=== PATIENT | female | born 1955 | race Caucasian/White ===

== ENCOUNTER → 2020-06-26 12:44 | Outpatient (CLI) | payer MEDICARE, BC, SELFPAY ==
--- NOTE | ~2020-06-26 | XR_ITS ---
EXAMINATION: XR hip LT min 2V DATE: 06/26/2020 13:15 INDICATION: Left hip pain. TECHNIQUE: 2 views of left hip were obtained. COMPARISON: Left hip radiographs 03/02/2016 FINDINGS: Bone alignment is normal. No fracture. There is mild left hip osteoarthritis. A chronic almaz cified mass in the pelvis is likely a uterine fibroid. IMPRESSION: 1. Mild left hip osteoarthritis. Reviewed, dictated and finalized at location A. [facility] [employer]
== END ==
PROVIDERS: Visit Provider Nurse Practitioner Adult Health
DX: R10.2 Pelvic and perineal pain (principal); M16.12 Unilateral primary osteoarthritis, left hip
CPT/HCPCS: 73502

== ENCOUNTER → 2020-07-09 11:13 | Outpatient (CLI) | payer MEDICARE, BC, SELFPAY ==
--- NOTE | ~2020-07-09 | US_ITS ---
EXAMINATION: US pelvic complete w TV EXAM DATE: 07/09/2020 11:51 INDICATION: Uterine leiomyoma . TECHNIQUE: Pelvic transabdominal and transvaginal sonogram was performed. There are multiple graysca le and Doppler images available for interpretation. Comparison is made to prior examination from 03/15. FINDINGS: Uterus measures 5.3 x 3.8 cm, is retroverted and morphologically normal. With focal region probably fibroid measuring 2.8 cm. Endometrial stripe measures 4 mm, within normal limits, including trace fluid. There is no free pelvic fluid. Right adnexa: The ovary is not identified. There is no adnexal mass. Left adnexa: The ovary is not identified. There is no adnexal mass. IMPRESSION: 1. Fibroid uterus. Reviewed, dictated and finalized at location B. ATIONAL DIRECTOR IMPRESSION: 1. Fibroid uterus.
== END ==
PROVIDERS: PCP Nurse Practitioner Adult Health; Visit Provider Nurse Practitioner Adult Health
DX: D25.9 Leiomyoma of uterus, unspecified (principal)
CPT/HCPCS: 76830; 76856

== ENCOUNTER 2022-11-03 09:44 | Outpatient (CLI) | payer MEDICARE, BC, SELFPAY ==
--- NOTE | ~2022-11-03 | MM_ITS ---
EXAMINATION: MM screening [facility] BI w meño HISTORY: Screening mammogram TECHNIQUE: Craniocaudal and mediolateral oblique 3-D tomosynthesis images were obtained and synthetic 2-D images were generated. CAD analysis was submitted and interpreted. COMPARISON: No prior mammogram is available for comparison at this institution. BREAST PARENCHYMAL COMPOSITION: The breasts are almost entirely fatty. FINDINGS: There is no evidence of suspicious mass, calcification, or architectural distortion to sugg est malignancy in either breast. IMPRESSION: 1. No mammographic evidence of malignancy. 2. Recommend routine screening mammography in one year. BI-RADS Category 1: Negative Reviewed, dictated and finalized at location A.
--- NOTE | ~2022-11-03 | DEXA_ITS ---
Bone Density Report Name: GENTRY MCCAIN Age: 66 Sex: Female Ethnicity: White Date of : 1955 Indication: postmenopausal; screening for osteoporosis; prior fracture; Referring Provider: SCOOTER, CYNTHIA Malave Study: Bone densitometry was performed. Exam Date: November 03, 2022 Accession number: [id number] Bone Density: Region BMD T-score Z-score Classification AP Spine(L1-L4) 1.143 0.9 2.9 Normal Femoral Neck (Left) 0.800 -0.4 1.3 Normal Total Hip (Left) 1.126 1.5 2.9 Normal Femoral Neck (Right) 0.689 -1.4 0.3 Osteopenia Total Hip (Right) 1.032 0.7 2.2 Normal Total Hip Mean 1.079 1.1 2.6 Normal World Health Organization criteria for BMD impression classify patients as: Normal (T-score at or above -1.0), Osteopenia (T-score between -1.0 and -2.5), or Osteoporosis (T-score at or below -2.5). 10-year Fracture Risk(1): Major Osteoporotic Fracture 13% Hip Fracture 1.4% Reported Risk Factors: [place] (), Neck BMD=0.689, BMI=44.5, previous fracture Input outside FRAX(R) limits. Adjusted to:Qinnwl=071 kg (1) FRAX(R) Version 3.08. Fracture probability calculated for an untreated patient. Fracture probability may be lower if the patient has received treatment. Clinical Information Provided by Patient: Has had a low trauma fracture Has used the following medications: Vitamin D Patient maximum height was 66 Menopause Age: 48 No regular weight bearing exercise Does not regularly consume dairy products Onset of menses at age 9 Number of children 0 Impression: The patient has low bone mass, based on the Right Femoral Neck T-score. The patient has an estimated ten-year risk of hip fracture of 1.4% and an estimated ten-year risk of major fracture of 13%, based on the WHO FRAX algorithm. The patient has risk factors, including: previous fracture. Discussion: BONE DENSITY IS LOW AT ONE OR MORE SKELETAL SITES. This patient's lowest T-score is low at one or more skeletal sites. It meets the World Health Organization's (WHO) criteria for ?low bone mass? (T-score between -1.0 and -2.5). The patient's 10-year risk of fracture as calculated by FRAX is less than the threshold where pharmacological therapy is recommended by the National Osteoporosis Foundation (NOF). However, all treatment decisions require clinical judgment and consideration of individual patient factors, including patient preferences, comorbidities, previous drug use, risk factors not captured in the FRAX model (e.g., frailty, falls, vitamin D deficiency, increased bone turnover, interval significant decline in bone density) and possible under or overestimation of fracture risk by FRAX. The patient should follow a healthful lifestyle (good nutrition with adequate calcium and vitamin D, and appropriate weight-bearing ex
== END 2022-11-03 09:45 | disposition home or self-care (01) ==
LOC: ANHIMG 09:48
PROVIDERS: PCP Nurse Practitioner Family; Visit Provider Nurse Practitioner Family
DX: Z12.31 Encounter for screening mammogram for malignant neoplasm of breast (principal); Z78.0 Asymptomatic menopausal state; M85.851 Other specified disorders of bone density and structure, right thigh
CPT/HCPCS: 77063; 77067; 77080

== ENCOUNTER 2023-09-07 11:21 | Outpatient (CLI) | payer MEDICARE, BC, SELFPAY ==
--- NOTE | ~2023-09-07 | XR_ITS ---
Right Shoulder Technique: AP and scapular Y views were obtained. Clinical History: Pain Findings: No fracture or dislocation is seen. Osseous alignment is anatomic. There is moderate to adv anced degenerative change of the glenohumeral joint. There is mild AC joint degenerative change.. Sof t tissues are unremarkable. Impression: Moderate to advanced glenohumeral joint degenerative change. Mild AC joint degenerative change. Reviewed, dictated and finalized at location M. Impression: Moderate to advanced glenohumeral joint degenerative change. Mild AC joint degenerative change.
== END 2023-09-07 11:22 | disposition home or self-care (01) ==
PROVIDERS: PCP Nurse Practitioner Adult Health; Visit Provider Nurse Practitioner Adult Health
DX: M19.011 Primary osteoarthritis, right shoulder (principal)
CPT/HCPCS: 73030

== ENCOUNTER 2023-10-26 08:30 | Outpatient (CLI) | payer MEDICARE, BC, SELFPAY ==
--- NOTE | ~2023-10-26 | XR_ITS ---
Right Knee Technique: AP, lateral, and sunrise views were obtained. Clinical History: Medial pain Findings: No fracture or dislocation is seen. Osseous alignment is anatomic. Minimal degenerative spu rring noted throughout the knee. Soft tissues are unremarkable. No joint effusion is seen. Impression: Minimal degenerative spurring. Reviewed, dictated and finalized at location . Impression: Minimal degenerative spurring.
== END 2023-10-26 08:31 | disposition home or self-care (01) ==
LOC: ANHBWCIMG 08:33
PROVIDERS: PCP Nurse Practitioner Adult Health; Visit Provider Nurse Practitioner Adult Health
DX: M25.561 Pain in right knee (principal); M77.8 Other enthesopathies, not elsewhere classified
CPT/HCPCS: 73562

== ENCOUNTER 2024-03-04 13:51 | Outpatient (CLI) | payer MEDICARE, BC, SELFPAY ==
--- NOTE | ~2024-03-04 | XR_ITS ---
XR hip RT min 2V Ordering provider: Mireya Cohn APRN History: . M25.551 - Pain in right hip - No injury . Comparison: March 02, 2016 FINDINGS: BONES: No acute fracture or dislocation. HIP JOINT SPACES: Normal. SOFT TISSUES: Normal. IMPRESSION: No definite acute osseous abnormality right hip. Reviewed, dictated and finalized at location A.
== END 2024-03-04 13:52 | disposition home or self-care (01) ==
LOC: ANHBWCLAB 13:53 → ANHBWCIMG 13:55
PROVIDERS: PCP Nurse Practitioner Adult Health; Visit Provider Nurse Practitioner Adult Health
DX: M25.551 Pain in right hip (principal)
CPT/HCPCS: 73502

== ENCOUNTER 2024-06-06 14:06 | Outpatient (CLI) | payer MEDICARE, BC, SELFPAY ==
--- NOTE | ~2024-06-06 | XR_ITS ---
HISTORY: fall 4 days ago, pain/swelling at 3rd and 4th IP joint COMPARISON: None TECHNIQUE: 3 views of the left hand were performed. FINDINGS: No acute fracture is identified. Degenerative disease is identified within the distal interphalangeal joint spaces of the second and f ifth digits and within the third and fourth digits to a lesser extent. The remaining visualized joint spaces are otherwise preserved. The carpal arcs are intact. Bone mineralization is age-appropriate. Trace soft tissue swelling surrounding the third and fourth proximal interphalangeal joint spaces. No radiopaque foreign body is identified. IMPRESSION: Degenerative disease, without acute fracture or dislocation within the left hand, as detailed above. Reviewed, dictated and finalized at location A. DE WIRER IMPRESSION: Degenerative disease, without acute fracture or dislocation within the left bush d, as detailed above.
--- OUTSIDE RECORDS SUMMARY | 2024-06-07 05:36 | XMS_ITS | Data Portability ---
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 Name Role Phone TERRENCE COHN Primary Care Provider Assessment Encounter Date Assessment Date Assessment LastModified by Organization Details LastModified Time 10/03/2023 10/03/2023 Assessment: Rhinitis Moderate OSAHS, AHI = 16 PLMD Plan: The following were reviewed and explained to the patient: primary care/referral note [facility] diagnostic sleep study 05/12/17 sleep onset = 37.5 minutes, REM onset = 306 minutes, AHI = 16, supine AHI = 27, REM AHI = 79, PLMI = 10 [facility] titration sleep study 07/06/17 sleep onset = 67.5 minutes, REM onset = 138 minutes, ResMed medium AirFit P10 nasal pillows @ 8 cmH2O, PLMI = 0.0 [facility] titration sleep study 12/22/17 sleep onset = 23.5 minutes, REM onset = 297 minutes, Respironics medium Nuance gel nasal pillows @ 10 cmH2O, PLMI = 0.0 [facility] titration sleep study 11/14/18 sleep onset = 31.5 minutes, REM onset = 224.5 minutes, Respironics medium Nuance gel nasal pillows @ 12 cmH2O, PLMI = 22 Elevation in periodic limb movement index may be contributed by escitalopram. Non-pharmacologic therapy options for periodic limb movement disorder include avoidance of aggravating drugs and substances, mental alerting activities, short daily hemodialysis for patients in renal failure, exercise, leg massage, stretching calf muscles, use of a weighted blanket and applied heat. Patient will cut down on caffeine intake. We will check BUN, Creatinine, Vitamin E, Vitamin B12, RBC folate, Iron, TIBC, Ferritin, ESR, Magnesium, Hgb and Hct levels. PAP compliance downloaded and interpreted x 20 minutes. Data reviewed and explained to the patient. Average apnea/hypopnea index (AHI) is 1.6. Patient used PAP > 4 hours 99% of the time. PAP is set at 12 cmH2O. PAP will remain at 12 cmH2O. Keep ramp off. Keep EPR @ +1. Keep humidifier level @ automatic mode. Keep tube temperature @ automatic mode. Oxygen supplementation: none Patient is benefiting from PAP therapy. Encouraged patient to maintain PAP use more than 70% of the time. Statement of PAP use and benefits will be sent to the home care store. Educated the patient on problems and solutions associated with positive airway pressure (PAP) use. Difficulty tolerating pressure, mask leaks, intolerance of interface, nasal congestion, claustrophobic response, dry mouth, and unintentional mask removal during sleep were covered. Patient experiences nasal congestion. Patient will use nasal saline spray before starting PAP, use heated PAP humidifier, clean/air dry humidifier reservoir daily, use nasal steroid spray, use ipratropium bromide nasal spray if rhinitis/rhinorrhe a is present or obtain an oronasal/oral interface. Dry mouth is a normal occurrence for people who just start out on PAP therapy because they are not used to air blowing in to the throat to hold open. Dry mouth is exacerbated for people who wear nasal PAP mask and whose jaw drops open during sleep. Not only does this create a much less efficient therapy because of leakage, it also causes dry mouth. There are a couple solutions to help prevent this type of problem. A simple solution would be to wear a chinstrap which essentially holds the jaw in place. A second solution would be a switch to a full face mask which covers both the nose and mouth. Although this is another easy solution, using a full face mask for some could seem claustrophobic or confining. There is no silver bullet solution as no single mask is right for everybody. Sometimes it takes a bit of experimentation to find a PAP mask which best meets the patient's needs as well as fits comfortably. Another tactic is to use a humidifier on your PAP machine. Most new PAP machines have integrated humidifiers. Humidification is gray when dealing with symptoms of dry mouth because the humidifier can supply both warm and room temperate air. Even a small amount of humidity in the airflow will help nasal passages to stay hydrated. If a person is using both a full face mask and a PAP machine with a heated humidifier and is still experiencing dry mouth, an ill-fitted PAP mask might be causing the problem. Leakage can be caused by a mask that is to large or small, the wrong style mask, the cushion is degraded or simply because the mask's straps aren't adjusted correctly. If leakage occurs, dry air from the room can leak in while humidification escapes. The result is reduced humidification within the circuit and resulting in dry throat and mouth. Finally, beyond factors involving the PAP machine and mask, dry mouth can also be caused or worsened by dehydration. The general recommendation to during eight 8 oz. glasses of water a day might be too little for many people. When people drink large amounts of coffee or other caffeine beverages, or sweat a lot during the day, making sure to rehydrate is an important part of PAP therapy. Provided the patient with a list of local home care stores where positive airway pressure (PAP) units, accoutrement, and services are available. Home care store selection is based on patient's insurance carrier. Patient will setup an appointment with [facility] for supplies and pressure adjustments. A major predictor of success with use of PAP is follow-up with both the respiratory supplier and the treating physician. The respiratory supplier optimally will follow-up within two weeks after starting use while the treating physician optimally will follow-up within 90 days after starting therapy to assess adherence and effectiveness of treatment. The download results can show the treating physician information about adherence to treatment, residual AHI while on treatment and presence of large mask leakage. This information is especially helpful if the patient has residual sleepiness despite treatment. General information on sleep disordered breathing, evaluation of sleep disordered breathing, treatment with PAP therapy, and living with PAP therapy were covered. We discussed with the patient the impact of weight on: Sleep disordered breathing Hypertension Hyperlipidemia [place] Lumbar stenosis We discussed with the patient the benefit of PAP therapy on: Sleep disordered breathing Anxiety Rhinitis Atrial fibrillation Mild TR PASP 28 mmHg Hypertension FR[place] Educated the patient on sleep hygiene measures. Relaxing rituals to rest easy, understanding foods with positive and negative impact on sleep, creating a peaceful sleep environment, timing of exercise, using herbal sleep aids, and practicing sleep-friendly meditation were covered. To determine how much sleep is needed, the patient will assess where she falls on the spectrum, examine what lifestyle factors such as work schedules and stress are affecting the quality and quantity of sleep. In general, adults need 7-9 hours of sleep. Educated the patient regarding foods that promote sleep. These include but are not limited to cherries, bananas, toast, oatmeal, and warm milk. Educated the patient regarding foods and drinks to avoid before bedtime. These include but are not limited to aged cheese, chocolate, spicy foods, tomato-based sauces, soy, ginseng tea and processed meat. Advocated influenza vaccination annually and pneumonia vaccination MURPHY. Advocated weight loss through diet and exercise. Patient's ideal body weight according to height and gender is up to 140 lbs. Encouraged patient to adjust caloric intake to maintain/achieve ideal body weight, emphasizing on fruits, vegetables, whole grains, and fat-free or low-fat products. These include lean meats, poultry, fish, beans, eggs, and nuts and foods that are low in saturated fats, trans-fats, cholesterol, salt (sodium), and glycemic index. Stressed the importance of regular exercise up to the patient's capacity limits. In this case, we recommend 20 min daily walking, 2 days a week of resistance training. Patient to monitor BP daily and bring records to PCP for further management. Follow-up: 3 weeks Not available 10/03/2023 12:11:16 10/24/2023 10/24/2023 Assessment: Rhinitis Moderate OSAHS, AHI = 16 PLMD Iron deficiency Vit E deficiency Plan: The following were reviewed and explained to the patient: [facility] diagnostic sleep study 05/12/17 sleep onset = 37.5 minutes, REM onset = 306 minutes, AHI = 16, supine AHI = 27, REM AHI = 79, PLMI = 10 [facility] titration sleep study 07/06/17 sleep onset = 67.5 minutes, REM onset = 138 minutes, ResMed medium AirFit P10 nasal pillows @ 8 cmH2O, PLMI = 0.0 [facility] titration sleep study 12/22/17 sleep onset = 23.5 minutes, REM onset = 297 minutes, Respironics medium Nuance gel nasal pillows @ 10 cmH2O, PLMI = 0.0 [facility] titration sleep study 11/14/18 sleep onset = 31.5 minutes, REM onset = 224.5 minutes, Respironics medium Nuance gel nasal pillows @ 12 cmH2O, PLMI = 22 ESR 10/03/23 26 mm/hr Ferritin 10/03/23 21 ng/mL Alpha tocopherol 10/03/23 8.5 mg/L Gamma tocopherol 10/03/23 1.3 mg/L Elevation in periodic limb movement index may be contributed by escitalopram. Non-pharmacologic therapy options for periodic limb movement disorder include avoidance of aggravating drugs and substances, mental alerting activities, short daily hemodialysis for patients in renal failure, exercise, leg massage, stretching calf muscles, use of a weighted blanket and applied heat. Patient will cut down on caffeine intake. BUN, Creatinine, Vitamin B12, RBC folate, Iron, TIBC, Magnesium, Hgb and Hct levels are within normal limits. Patient will take Vitamin E 200 IU/day to keep the alpha tocopherol > 7.0 mg/L and to keep the gamma tocopherol > 0.5 mg/L. Patient will take FeSO4 325 mg + Vit C 500 mg daily to keep the ferritin > 75 ng/ml. Check vitamin E and ferritin one week before return. We will hold off on dopaminergic therapy for now. PAP compliance downloaded and interpreted x 20 minutes. Data reviewed and explained to the patient. Average apnea/hypopnea index (AHI) is 1.4. Patient used PAP > 4 hours 94% of the time. PAP is set at 12 cmH2O. PAP will remain at 12 cmH2O. Keep ramp off. Keep EPR @ +1. Keep humidifier level @ automatic mode. Keep tube temperature @ automatic mode. Oxygen supplementation: none Patient is benefiting from PAP therapy. Encouraged patient to maintain PAP use more than 70% of the time. Statement of PAP use and benefits will be sent to the home care store. Educated the patient on problems and solutions associated with positive airway pressure (PAP) use. Difficulty tolerating pressure, mask leaks, intolerance of interface, nasal congestion, claustrophobic response, dry mouth, and unintentional mask removal during sleep were covered. Patient experiences nasal congestion. Patient will use nasal saline spray before starting PAP, use heated PAP humidifier, clean/air dry humidifier reservoir daily, use nasal steroid spray, use ipratropium bromide nasal spray if rhinitis/rhinorrhe a is present or obtain an oronasal/oral interface. Dry mouth is a normal occurrence for people who just start out on PAP therapy because they are not used to air blowing in to the throat to hold open. Dry mouth is exacerbated for people who wear nasal PAP mask and whose jaw drops open during sleep. Not only does this create a much less efficient therapy because of leakage, it also causes dry mouth. There are a couple solutions to help prevent this type of problem. A simple solution would be to wear a chinstrap which essentially holds the jaw in place. A second solution would be a switch to a full face mask which covers both the nose and mouth. Although this is another easy solution, using a full face mask for some could seem claustrophobic or confining. There is no silver bullet solution as no single mask is right for everybody. Sometimes it takes a bit of experimentation to find a PAP mask which best meets the patient's needs as well as fits comfortably. Another tactic is to use a humidifier on your PAP machine. Most new PAP machines have integrated humidifiers. Humidification is gray when dealing with symptoms of dry mouth because the humidifier can supply both warm and room temperate air. Even a small amount of humidity in the airflow will help nasal passages to stay hydrated. If a person is using both a full face mask and a PAP machine with a heated humidifier and is still experiencing dry mouth, an ill-fitted PAP mask might be causing the problem. Leakage can be caused by a mask that is to large or small, the wrong style mask, the cushion is degraded or simply because the mask's straps aren't adjusted correctly. If leakage occurs, dry air from the room can leak in while humidification escapes. The result is reduced humidification within the circuit and resulting in dry throat and mouth. Finally, beyond factors involving the PAP machine and mask, dry mouth can also be caused or worsened by dehydration. The general recommendation to during eight 8 oz. glasses of water a day might be too little for many people. When people drink large amounts of coffee or other caffeine beverages, or sweat a lot during the day, making sure to rehydrate is an important part of PAP therapy. Provided the patient with a list of local home care stores where positive airway pressure (PAP) units, accoutrement, and services are available. Home care store selection is based on patient's insurance carrier. Patient will setup an appointment with [facility] for supplies and pressure adjustments. A major predictor of success with use of PAP is follow-up with both the respiratory supplier and the treating physician. The download results can show the treating physician information about adherence to treatment, residual AHI while on treatment and presence of large mask leakage. This information is especially helpful if the patient has residual sleepiness despite treatment. General information on sleep disordered breathing, evaluation of sleep disordered breathing, treatment with PAP therapy, and living with PAP therapy were covered. We discussed with the patient the impact of weight on: Sleep disordered breathing Hypertension Hyperlipidemia [place] Lumbar stenosis We discussed with the patient the benefit of PAP therapy on: Sleep disordered breathing Anxiety Rhinitis Atrial fibrillation Mild TR PASP 28 mmHg Hypertension FR[place]CH[place]KA Educated the patient on sleep hygiene measures. Relaxing rituals to rest easy, understanding foods with positive and negative impact on sleep, creating a peaceful sleep environment, timing of exercise, using herbal sleep aids, and practicing sleep-friendly meditation were covered. To determine how much sleep is needed, the patient will assess where she falls on the spectrum, examine what lifestyle factors such as work schedules and stress are affecting the quality and quantity of sleep. In general, adults need 7-9 hours of sleep. Educated the patient regarding foods that promote sleep. These include but are not limited to cherries, bananas, toast, oatmeal, and warm milk. Educated the patient regarding foods and drinks to avoid before bedtime. These include but are not limited to aged cheese, chocolate, spicy foods, tomato-based sauces, soy, ginseng tea and processed meat. Advocated influenza vaccination annually and pneumonia vaccination MURPHY. Advocated weight loss through diet and exercise. Patient's ideal body weight according to height and gender is up to 140 lbs. Encouraged patient to adjust caloric intake to maintain/achieve ideal body weight, emphasizing on fruits, vegetables, whole grains, and fat-free or low-fat products. These include lean meats, poultry, fish, beans, eggs, and nuts and foods that are low in saturated fats, trans-fats, cholesterol, salt (sodium), and glycemic index. Stressed the importance of regular exercise up to the patient's capacity limits. In this case, we recommend 20 min daily walking, 2 days a week of resistance training. Patient to monitor BP daily and bring records to PCP for further management. Follow-up: 3 months, January 2024 Not available 10/24/2023 09:49:59 Plan of Treatment Reminders Order Date Submit Date Provider Last Modified By Organization Details Last Modified Time Details Appointments None recorded. Lab urinalysis, dipstick 2022 023 [facility], [address], [place], [address], 3 15:50:13 iron + TIBC + ferritin, serum [address] [facility], [address] [place], [address], 4 19:10:36 folate, RBC 2023 024 [email or web address] 25 [facility], [address] [place], [address], 4 09:28:02 vitamin B12, serum 2023 024 [email or web address] 25 [facility], [address] [place], [address], 4 09:28:03 ESR (erythrocyt e sedimentati on rate), blood 2023 024 [email or web address] 25 [facility], [address] [place], [address], 4 09:28:03 hemoglobin + hematocrit, blood 2023 024 [email or web address] 25 [facility], [address] [place], [address], 4 09:28:03 bun (blood urea nitrogen), serum or plasma 2023 024 [email or web address] 25 [facility], [address] [place], [address], 4 09:28:03 creatinine, serum or plasma 2023 024 [email or web address] 25 [facility], [address] [place], [address], 4 09:28:03 magnesium, serum or plasma 2023 024 [email or web address] 25 [facility], [address] [place], [address], 4 09:28:03 vitamin E, serum 2023 024 [facility] [address] [place], [address], 4 00:03:24 ferritin, serum or plasma 2023 024 [email or web address] 82 [facility], [address] [place], [address], 4 09:00:44 vitamin E, serum 2023 024 [email or web address] 82 [facility], [address] [place], [address], 4 09:00:44 Referral None recorded. Procedures None recorded. Surgeries None recorded. Imaging None recorded. Medication Orders doxycycline hyclate 100 mg capsule [address]/Pharmacy #[id number], [address] [facility] [place], [address], 4 15:28:23 ferrous sulfate 325 mg (65 mg iron) tablet [address] [facility]Pharmacy #[id number], [address] [facility] [place], [address], 4 09:44:02 Vitamin C 500 mg tablet [address] [facility]/Pharmacy #[id number], [address], [place], [address], 4 09:44:04 vitamin E (dl, acetate) 90 mg (200 unit) capsule [address] [facility]/Pharmacy #[id number], [address], [place], [address], 4 09:44:03 Patient TargetsNo targets recorded. Patient Instructions Encounter Date Encounter Id Patient Instructions Last Modified By Organization Details Last Modified Time 12/27/2022 [id number] FU in 6 mo for htn, lipid, allergies, lower back pain, gerd. [email or web address] Not available 12/27/2022 13:59:13 Reason for Referral None Reported. Results Created Date Observation Date Name Description Value Unit Range Abnormal Flag Note LastModifiedBy Organization Detail LastModifiedTime 12/28/1912/27/2022 urina lysis , dipst ick Leukocytes (reference range: negative christina/??l) Negati ve Not Available [address], [address], 12/27/2022 14:41:16 12/28/19 23 12/27/2022 urina lysis , dipst ick Nitrite (reference rage: negative mg/dl) negati ve Not Available [address], [address], 12/27/2022 14:41:16 12/28/19 23 12/27/2022 urina lysis , dipst ick Urobilinogen (reference range: 0.2-1 mg/dl) 0.2 Not Available [address], [address], 12/27/2022 14:41:16 12/28/19 23 12/27/2022 urina lysis , dipst ick Protein (reference range: negative mg/dl) Negati ve Not Available [address], [address], 12/27/2022 14:41:16 12/28/19 23 12/27/2022 urina lysis , dipst ick pH (reference range: 5-7) 6.5 Not Available [address], [address], 12/27/2022 14:41:16 12/28/19 23 12/27/2022 urina lysis , dipst ick Blood (reference range: negative Barney/??l) Negati ve Not Available [address], [address], 12/27/2022 14:41:16 12/28/19 23 12/27/2022 urina lysis , dipst ick Specific [place] (reference range: 1.005-1.030) 1.025 Not Available [address], [address], 12/27/2022 14:41:16 12/28/1912/27/2022 urina lysis , dipst ick Ketone (reference range: negative mg/dl) Negati ve Not Available [address], [address], 12/27/2022 14:41:16 12/28/1912/27/2022 urina lysis , dipst ick Bilirubin (reference range: negative mg/dl) Trace Not Available [address], [address], 12/27/2022 14:41:16 12/28/1912/27/2022 urina lysis , dipst ick Glucose (reference range: negative mg/dl) Negati ve Not Available [address], [address], 12/27/2022 14:41:16 12/28/19 23 12/27/2022 urina lysis , dipst ick Appearance Clear Not Available [address], [place], [address], 12/27/2022 14:41:16 12/28/19 23 12/27/2022 urina lysis , dipst ick Color Yellow Not Available [facility] [address] [facility], [place], [address], 12/27/2022 14:41:16 11/04/19 23 11/03/2022 MAMMO , scree clint, bilat eral No observ ation record ed. [address], [place], [address], 11/03/2022 15:41:58 11/05/19 23 11/03/2022 DEXA No observ ation record ed. [address], [place], [address], 11/04/2022 16:27:24 11/10/19 23 12/22/2017 polys omnog alex, titra tion study No observ ation record ed. BARCODE Not Available 2022 18:30:10 11/10/19 23 07/06/2017 polys omnog alex, titra tion study No observ ation record ed. BARCODE Not Available 2022 18:30:10 11/10/19 23 05/12/2017 polys omnog alex, diagn ostic , 6 yrs or older No observ ation record ed. Not Available 2023 15:40:36 03/08/20 23 03/08/2023 US, doppl er echoc ardio gram No observ ation record ed. [email or web address] [facility] [address], [place], [address], 03/09/2023 07:16:08 09/26/19 24 05/12/2017 polys omnog alex, diagn ostic , 6 yrs or older No observ ation record ed. BARCODE Not Available 2023 10:47:56 09/26/19 24 07/06/2017 polys omnog alex, titra tion study No observ ation record ed. [email or web address] Not Available 2023 11:15:48 09/26/19 24 11/14/2018 polys omnog alex, titra tion study No observ ation record ed. BARCODE Not Available 2023 10:47:58 09/26/19 24 12/22/2017 polys omnog alex, titra tion study No observ ation record ed. BARCODE Not Available 2023 10:47:58 Result Notes None recorded. Problems Name Problem SNOMED Code Status Onset Date Resolution Date Notes Provider Name and Address Organization Details Recorded Time Neoplasm of skin 771754666 Active Not Available [facility] 3 16:40:46 Herpes labialis 6985436 Active 2022 Not Available [facility] 3 16:40:46 Constipat ion 86490441 Completed Not Available [facility] 3 04:55:35 Acute sinusitis 56833829 Completed Not Available [facility] 3 04:55:35 Spinal stenosis of lumbar region 71895348 Active Not Available [facility] 3 16:40:46 Postopera tive pain 715837689 Completed Not Available [facility] 3 04:55:35 Soft tissue lesion of foot region 655681493 Completed Not Available [facility] 3 04:55:35 Dropped beats - heart 328389234 Completed Not Available [facility] 3 04:55:35 Urinary symptoms 162045975 Completed Not Available [facility] 3 04:55:35 Nodule on toe 443312774 Completed Not Available [facility] 3 04:55:36 Weight decreased 114728325 Completed Not Available [facility] 3 04:55:36 Edema 028873293 Completed Not Available [facility] 3 04:55:36 Vaginal discharge 848372974 Completed Not Available [facility] 3 04:55:36 Low back pain 224240748 Completed Not Available [facility] 3 04:55:36 Pain in left lower limb 616483967 Completed Not Available [facility] 3 04:55:36 Ganglion of foot 864092232 Completed Not Available [facility] 3 04:55:36 Numbness of toe 955573225 Completed Not Available [facility] 3 04:55:37 Non-aller gic rhinitis [id number] 1 Completed Not Available [facility] 3 04:55:37 Laceratio n - injury 264515412 Completed Not Available [facility] 3 04:55:37 Vitamin D deficienc y 12293071 Active 2022 Not Available [facility] 3 16:40:46 Seasonal allergic rhinitis 812822161 Active 2022 Not Available [facility] 3 16:40:46 Sinusitis 11832571 Completed Not Available [facility] 3 04:55:37 Hypertens nita disorder 32010590 Completed Not Available [facility] 3 04:55:37 Body mass index 40+ - severely obese 462100921 Active 2017 Not Available [facility] 3 16:40:46 Obesity 839491624 Active Not Available [facility] 3 16:40:46 Easy bruising 610327152 Completed Not Available [facility] 3 04:55:38 Numbness 39336713 Completed Not Available [facility] 3 04:55:38 Cardiac pacemaker in situ 956660815 Active 2018 Not Available [facility] 3 16:40:46 Seasonal allergy 241989217 Completed Not Available [facility] 3 04:55:38 Erythema of skin 234132951 Completed Not Available [facility] 3 04:55:39 Ganglion cyst 355658064 Active Not Available [facility] 3 16:40:46 Anxiety 75774087 Active 2022 Not Available [facility] 3 16:40:46 Upper respirato ry infection 55192327 Completed Navjot Myles MD [address] [place] [address], [place] [address], [place], [address] , [facility] [employer] [facility] 4 15:50:31 Hyperlipi demia 10530885 Active 2022 Not Available [facility] 3 16:40:46 Essential hypertens ion 12197172 Active Not Available [facility] 3 16:40:46 Allergic rhinitis 42064657 Completed Navjot Myles MD [address], [address], [place], [address] , [email or web address] [facility] [employer] [facility] 4 15:49:59 Acid reflux 916726339 Active Not Available [facility] 3 16:40:46 Candidias is of vagina 21247240 Completed Not Available [facility] 3 04:55:41 Degenerat ion of intervert ebral disc 09168205 Active Not Available [facility] 3 16:40:46 Obstructi ve sleep apnea syndrome 55575171 Active 2017 Not Available [facility] 3 16:40:46 Contusion of lower limb 50756130 Completed Not Available [facility] 3 04:55:42 Uterine leiomyoma 50640675 Active 2020 Not Available [facility] 3 16:40:46 Skin nodule 48484157 Completed Not Available [facility] 3 04:55:43 Osteopeni a 412881980 Active 2022 Not Available [facility] 3 16:40:46 Periodic limb movement disorder 349921598 Active 2023 Navjot Myles MD [address], [address], [place], [address] , [email or web address] [facility] [employer] [facility] 4 12:05:56 Iron deficienc y 80305222 Active 2023 Navjot Myles MD [address], [address], [place], [address] , [email or web address] [facility] [employer] [facility] 4 09:42:49 Vitamin E deficienc y 74864637 Active 2023 Navjot Myles MD [address], [address], [place], [address] , [facility] 4 09:42:59 Notes:Medical History: Anxie ty Allergic conjunctivitis Allergic rhinitis with postnasal drip HSV-1 infection Bruxism Obesity with mod OSAHS, AHI = 16, 05/12/17, on CPAP c/o IVRC Atrial fibrillation Mild TR PASP 28 mmHg Hypertension EF 60% Hyperlipidemia FRANCHESKA Uterine leiomyoma PLMD Iron deficiency Vit E deficiency Vit D deficiency Osteopenia Lumbar stenosis Right shoulder OA Procedure History: Lap banding 2008 Nasal septoplasty 2009 Nasal polypectomy 2012 Cardiac catheterizations 2011, 2017 Cholecystectomy 2015 Left ankle fracture surgery 2015 Colonoscopy 2016 D&C 2017 Lap banding removal 2018 Pacemaker placement 2019 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 Procedures Surgical History Date Name Laterality Status Provider Name and Address Organization Details Recorded Time 3 Most Recent Bone Density completed Carine Mcleod NP [address] [place] [address] [address], [place], [address], [facility] 11/04/2022 13:52:55 6 Date of Last Colonoscopy completed Carine Santoyo RN [facility] 08/26/2022 11:17:52 Imaging Results Imaging Date Name Status LastModified by Organization Details LastModified Time 11/03/2022 MAMMO, screening, bilateral completed [address], [address], 11/03/2022 15:41:58 11/03/2022 DEXA completed [address], [address], 11/04/2022 16:27:24 12/22/2017 polysomnogram, titration study completed [facility] Information not available 11/09/2022 18:30:10 07/06/2017 polysomnogram, titration study completed [facility] Information not available 11/09/2022 18:30:10 05/12/2017 polysomnogram, diagnostic, 6 yrs or older completed Information not available 09/24/2023 15:40:36 03/08/2023 US, doppler echocardiogram completed [email or web address] [facility] [address], [place], [address], 03/09/2023 07:16:08 05/12/2017 polysomnogram, diagnostic, 6 yrs or older completed [facility] Information not available 09/26/2023 10:47:56 07/06/2017 polysomnogram, titration study completed [email or web address] Information not available 11/07/2023 11:15:48 11/14/2018 polysomnogram, titration study completed [facility] Information not available 09/26/2023 10:47:58 12/22/2017 polysomnogram, titration study completed [facility] Information not available 09/26/2023 10:47:58 Procedure Notes None recorded. Medical Equipment None Reported. Allergies Allergen ID Allergen Name Allergen Category Reaction Reaction Severity Criticality Documentation Date Start Date Code Code System Note Provider Name and Address Organization Details Recorded Time 66148 rosuvasta tin medicatio n hives Not available Not available 10/03/2023 76683 2 RxNorm QUENTIN Baeza [place] [facility] [place] [employer] 4 11:02:48 9133 acetamino phen / hydrocodo ne medicatio n hives severe Not available 07/13/2022 42726 2 RxNorm Not Available [facility] 3 05:07:51 9136 Substance with sulfonami de structure and antibacte rial mechanism of action (substanc e) medicatio n hives Not available Not available 07/13/2022 32908 8003 SNOMED Not Available [facility] 3 05:07:51 9137 prednison e medicatio n chest pain moderate Not available 07/13/20222016 8640 RxNorm Not Available [facility] 3 05:07:51 9139 Product containin g penicilli n and antibioti c (product) medicatio n Not available Not available Not available 07/13/2022 35272 05 SNOMED Not Available [facility] 3 05:07:51 9143 nitrofura ntoin medicatio n other Not available Not available 07/13/2022 7454 RxNorm chest tighn ess and press ure, stoma ch felt bad, heada olvin Not Available [facility] 3 05:07:51 9146 Levaquin medicatio n hives Not available Not available 07/13/2022 99208 2 RxNorm Not Available [facility] 3 05:07:51 9147 iodine medicatio n Not available Not available Not available 07/13/2022 5933 RxNorm Not Available [facility] 3 05:07:51 9150 Iodinated contrast media (substanc e) medicatio n hives Not available Not available 07/13/2022 52004 2004 SNOMED Not Available [facility] 3 05:07:51 9153 cyclobenz aprine hydrochlo ride medicatio n hives Not available Not available 07/13/2022 67281 RxNorm Not Available [facility] 3 05:07:51 9155 Eliquis medicatio n rash Not available Not available 07/13/2022 74335 36 RxNorm Not Available [facility] 3 05:07:51 9156 diclofena c Not available rash Not available Not available 07/13/2022 3355 RxNorm facia l rash Not Available [facility] 3 05:07:52 9158 Betadine medicatio n Not available Not available Not available 07/13/2022 32061 0 RxNorm Not Available [facility] 3 05:07:52 9160 Avelox medicatio n arthralgi a (joint pain) Not available Not available 07/13/2022 27442 6 RxNorm Not Available [facility] 3 05:07:52 9161 amoxicill in medicatio n hives Not available Not available 07/13/2022 723 RxNorm Not Available [facility] 3 05:07:52 9163 lisinopri l medicatio n Not available Not available Not available 07/13/2022 57786 RxNorm Not Available [facility] 3 05:07:52 9165 azithromy yaquelin medicatio n hives Not available Not available 07/13/2022 48984 RxNorm I SPOKE WITH THE PT , ON NUMER OUS OCCAS IONS SHE HAS BEEN GIVEN Z-PAC WITHO UT ANY ADVER SE REACT ION. SHE OK'D THIS MEDIC ATION TO BE TAKEN OFF HER ALLER GY LIST. Not Available [facility] 3 05:07:52 Medications Name Sig Start Date Stop Date Status Note LastModified by Organization Details LastModified Time methocarb dixie 500 mg tablet active Not Available Not Available No t Available atorvasta tin 80 mg tablet 09/08 completed Not Available Not Available Not Available azelastin e 0.05 % eye drops INSTILL 1 DROP INTO AFFECTED EYE(S) BY OPHTHALM IC ROUTE 2 TIMES PER DAY 11/20 completed Not Available Not Available Not Available prednison e 10 mg tablet 03/04 completed Not Available Not Available Not Available doxycycli ne hyclate 100 mg capsule TAKE 1 CAPSULE BY MOUTH TWICE A DAY FOR 7 DAYS 09/23 completed Not Available Not Available Not Available clindamyc in HCl 300 mg capsule 05/16 completed Not Available Not Available Not Available biotin 800 mcg tablet Take 1 microgra m every day by oral route as directed . 2016 active Not Available Not Available Not Avai lable Vitamin C 500 mg tablet Take 1 tablet every day by oral route. 2023 active Not Available Not Available Not Avai lable cetirizin e 10 mg tablet Take 1 tablet every day by oral route. 03/04 completed Not Available Not Available Not Available azithromy yaquelin 250 mg tablet TAKE 2 TABLETS (500 MG) BY ORAL ROUTE ONCE DAILY FOR 1 DAY THEN 1 TABLET (250 MG) BY ORAL ROUTE ONCE DAILY FOR 4 DAYS active Not Available Not Available No t Available fluconazo le 150 mg tablet TAKE 1 TABLET BY MOUTH EVERY DAY 10/02 completed Not Available Not Available Not Available valacyclo vir 1 gram tablet TAKE 1 TABLET BY MOUTH EVERY 12 HOURS NEEDED FOR 2 DAYS 08/26 completed Not Available Not Available Not Available fluconazo le 200 mg tablet Take 1 tablet every day by oral route for 3 days. active Not Available Not Available No t Available metronida zole 0.75 % (37.5 mg/5 gram) vaginal gel 11/20 completed Not Available Not Available Not Available lisinopri l 20 mg tablet TAKE 1 TABLET BY MOUTH EVERY DAY active Not Available Not Available No t Available prednison e 20 mg tablet for 5 days 11/20 completed Not Available Not Available Not Available Pyridium 200 mg tablet 06/22 completed Not Available Not Available Not Available atenolol 25 mg tablet Take every day by oral route as directed . 11/20 completed Not Available Not Available Not Available promethaz ine 6.25 mg-codein e 10 mg/5 mL syrup 02/26 completed Not Available Not Available Not Available amlodipin e 5 mg tablet Take 1 tablet(s ) every day by oral route. 03/21 completed Not Available Not Available Not Available acyclovir 400 mg tablet Take 1 tablet every 8 hours by oral route for 7 days. 03/06 completed Not Available Not Available Not Available omeprazol e 40 mg capsule,d elayed release Take 1 capsule every day by oral route. active Not Available Not Available No t Available tramadol 50 mg tablet Take 1 tablet every 6 hours by oral route for 10 days. 04/04 completed Not Available Not Available Not Available acetamino phen 500 mg tablet Take 2 tablets every 4 hours by oral route as needed. 04/16 completed Not Available Not Available Not Available triamcino lone acetonide 0.1 % topical cream APPLY A THIN LAYER TO THE AFFECTED AREA(S) BY TOPICAL ROUTE 2 TIMES PER DAY active Not Available Not Available No t Available biotin 300 mcg tablet Take 2 tablets every day by oral route. 04/19 completed 800mcg Not Available Not Available Not Available oxycodone -acetamin ophen 5 mg-325 mg tablet 12/31 completed Not Available Not Available Not Available famotidin e 20 mg tablet Take 1 tablet every 12 hours by oral route as directed for 5 days. 03/27 completed Not Available Not Available Not Available magnesium oxide 400 mg (241.3 mg magnesium ) tablet Take 1 tablet twice a day by oral route as directed for 30 days. 04/04 completed cardiolo gist put her on this med - has Not Available Not Available Not Available lorazepam 0.5 mg tablet active Not Available Not Available Not Available amlodipin e 10 mg tablet TAKE ONE TABLET DAILY 02/11 completed Not Available Not Available Not Available benzonata te 100 mg capsule 11/20 completed Not Available Not Available Not Available doxycycli ne monohydra te 100 mg capsule 12/31 completed Not Available Not Available Not Available acyclovir 5 % topical ointment APPLY TO THE AFFECTED AREA(S) BY TOPICAL ROUTE EVERY 3 HOURS 6 TIMES PER DAY 03/19 completed Not Available Not Available Not Available ferrous sulfate 325 mg (65 mg iron) tablet Take 1 tablet every day by oral route. 2023 active Not Available Not Available Not Avai lable tobramyci n 0.3 % eye drops 11/24 completed PRN Not Available Not Available Not Available ranitidin e 150 mg tablet TAKE 1 TABLET BY MOUTH DAILY. 09/27 completed Not Available Not Available Not Available diphenhyd ramine 25 mg tablet Take 1 tablet as needed by oral route as directed . 03/27 completed Not Available Not Available Not Available lisinopri l 10 mg tablet Take 1 tablet every day by oral route. active Not Available Not Available No t Available triamcino lone acetonide 55 mcg nasal spray aerosol [place] 2 sprays every day by nasal route at bedtime for 30 days. active NEEDED Not Available Not Available Not Available polymyxin B sulfate 10,000 unit-trim ethoprim 1 mg/mL eye drops active Not Available Not Available No t Available flecainid e 50 mg tablet 03/19 completed Not Available Not Available Not Available flecainid e 100 mg tablet 03/19 completed Not Available Not Available Not Available hydrochlo rothiazid e 12.5 mg capsule 02/26 completed Not Available Not Available Not Available misoprost ol 100 mcg tablet Take 1 tablet 4 times a day by oral route for 15 days. active prn Not Available Not Available No t Available lisinopri l 30 mg tablet Take 1 tablet every day by oral route for 90 days. active Not Available Not Available No t Available omeprazol e 20 mg capsule,d elayed release TAKE 1 CAPSULE BY MOUTH EVERY DAY active Not Available Not Available No t Available montel[address] st 10 mg tablet TAKE 1 TABLET BY MOUTH DAILY active Not Available Not Available No t Available pravastat in 20 mg tablet TAKE ONE TABLET DAILY 04/19 completed Not Available Not Available Not Available hydrochlo rothiazid e 25 mg tablet TAKE 1 TABLET IN THE MORNING 04/04 completed Not Available Not Available Not Available mupirocin 2 % topical ointment Apply by topical route for 10 days. active apply to L arm twice a day for 10 days Not Available Not Available Not Available furosemid e 20 mg tablet TAKE 1 TABLET BY MOUTH DAILY active Not Available Not Available No t Available methylpre dnisolone 4 mg tablets in a dose pack TAKE 6 TABLETS ON DAY 1 DIRECTED ON PACKAGE AND DECREASE BY 1 TAB EACH DAY FOR A TOTAL OF 6 DAYS 12/27 completed Not Available Not Available Not Available albuterol sulfate HFA 90 mcg/actua tion aerosol inhaler 01/13 completed Not Available Not Available Not Available ketoconaz ole 2 % topical cream APPLY TO FACE TWICE DAILY NEEDED 11/20 completed Not Available Not Available Not Available lisinopri l 40 mg tablet TAKE ONE TABLET DAILY 11/20 completed Not Available Not Available Not Available ondansetr on 4 mg disintegr ating tablet Take 1 tablet every 6 hours by oral route as needed for 5 days. 04/19 completed Not Available Not Available Not Available cefdinir 300 mg capsule TAKE 1 CAPSULE BY MOUTH TWICE A DAY 07/20 completed Not Available Not Available Not Available naproxen sodium 275 mg tablet active Not Available Not Available Not Available fluticaso ne propionat e 50 mcg/actua tion nasal spray,[place] 1 -2 PUFFS IN EACH NOSTRIL DAILY active Not Available Not Available No t Available doxycycli ne hyclate 100 mg tablet Take 1 tablet twice a day by oral route for 10 days. active Not Available Not Available No t Available atenolol 50 mg tablet 1/2 tablet bid active Not Available Not Available No t Available escitalop alex 10 mg tablet TAKE 1 TABLET BY MOUTH DAILY active Not Available Not Available No t Available ezetimibe 10 mg tablet TAKE 1 TABLET BY MOUTH EVERY DAY active Not Available Not Available No t Available Vitamin D3 25 mcg (1,000 unit) tablet Take every day by oral route. 04/19 completed raised to 2000 mg Not Available Not Available Not Available rosuvasta tin 10 mg tablet TAKE 1 TABLET BY MOUTH EVERY DAY active Not Available Not Available No t Available escitalop alex 5 mg tablet TAKE ONE TABLET DAILY 02/20 completed Not Available Not Available Not Available nitrofura ntoin monohydra te/macroc rystals 100 mg capsule Take 1 capsule every 12 hours by oral route for 7 days. active Not Available Not Available No t Available omeprazol e 40mg daily 07/04 completed Not Available Not Available Not Available Vitamin D 01/13 completed Not Available Not Available Not Available atenolol Take 12.5mg daily 04/09 completed Not Available Not Available Not Available nebivolol 5 mg tablet TAKE 1 TABLET BY MOUTH EVERY DAY active Not Available Not Available No t Available Vitamin D3 50 mcg (2,000 unit) tablet Take 1 tablet every day by oral route as directed . 01/13 completed Not Available Not Available Not Available aspirin 81 mg effervesc ent tablet Take 1 tablet every day by oral route. 09/23 completed Not Available Not Available Not Available B12 09/23 completed Not Available Not Available Not Available Probiotic 1 po qd 09/23 completed Not Available Not Available Not Available Roselia Allergy 10mg 1 po qd 2013 active Not Available Not Available Not Avai lable vitamin E (dl, acetate) 90 mg (200 unit) capsule Take 1 capsule every day by oral route. 2023 active Not Available Not Available Not Avai lable Eliquis 5 mg tablet 11/27 completed Not Available Not Available Not Available Fluvirin 8894-8929 45 mcg (15 mcg x 3)/0.5 mL intramusc ular suspensio n 03/21 completed Not Available Not Available Not Available Fluzone High-Dose 2018- (PF) 180 mcg/0.5 mL intramusc ular syringe 11/20 completed Not Available Not Available Not Available Vitals Date Recorded Body height Body mass index (BMI) Body weight Heart rate Oxygen saturation Oxygen saturation in Arterial blood by Pulse oximetry Systolic blood pressure Diastolic blood pressure Provider Name and Address Organization Details Last Updated DateTime 3 167.64 cm 57.1 kg/m2 929700. 7 g 71 /min 98 % 98 % 120 mm[Hg] 64 mm[Hg] Liza MCKENZIE - [facility] [employer] 3 12:23:39 Date Recorded Body height Body mass index (BMI) Body weight Body temperature Heart rate Respiratory rate Oxygen saturation Oxygen saturation in Arterial blood by Pulse oximetry Systolic blood pressure Diastolic blood pressure Provider Name and Address Organization Details Last Updated DateTime 3 167.64 cm 58.3 kg/m2 335935. 85 g 97.1 [degF] 109 /min 24 /min 99 % 99 % 160 mm[Hg] 100 mm[Hg] Carine Santoyo RN [facility] [employer] [facility] 3 14:27:45 Date Recorded Body height Body mass index (BMI) Body weight Body temperature Heart rate Oxygen saturation Oxygen saturation in Arterial blood by Pulse oximetry Systolic blood pressure Diastolic blood pressure Provider Name and Address Organization Details Last Updated DateTime 3 167.64 cm 49.1 kg/m2 434136. 08 g 97.2 [degF] 71 /min 99 % 99 % 122 mm[Hg] 80 mm[Hg] Liza Montero [facility] [employer] 3 12:19:47 Date Recorded Body height Body mass index (BMI) Body weight Body temperature Heart rate Oxygen saturation Oxygen saturation in Arterial blood by Pulse oximetry Systolic blood pressure Diastolic blood pressure Provider Name and Address Organization Details Last Updated DateTime 4 167.64 cm 57.8 kg/m2 384814. 07 g 98.2 [degF] 75 /min 97 % 97 % 122 mm[Hg] 82 mm[Hg] Efra Gill CMA [facility] [employer] [facility] 4 11:00:38 Date Recorded Heart rate Respiratory rate Provider N lance and Address Organization Details Last Updated DateTime 10/03/2023 75 /min 15 /min Navjot Myles MD [address] [place] [address], [address], [facility] [employer] [facility] 10/03/2023 12:17:14 Date Recorded Body height Body mass index (BMI) Body weight Body temperature Heart rate Oxygen saturation Oxygen saturation in Arterial blood by Pulse oximetry Systolic blood pressure Diastolic blood pressure Provider Name and Address Organization Details Last Updated DateTime 4 167.64 cm 57.6 kg/m2 053355. 48 g 97.6 [degF] 74 /min 98 % 98 % 120 mm[Hg] 72 mm[Hg] Efra Gill CMA [facility] [employer] [facility] 4 09:18:55 Date Recorded Heart rate Respiratory rate Provider Heidi lucas and Address Organization Details Last Updated DateTime 10/24/2023 74 /min 15 /min Navjot Myles MD [address], [facility] [address], [place], [address], [place] [facility] [place] [employer] [facility] 10/24/2023 09:44:23 Social History Question Answer Notes LastModified by Organization Details LastModified Time Tobacco Smoking Status Former Smoker Not Available [employer] 07/13/2022 04:43:20 Do You Have An Advance Directive? No [id number] Information not available 07/13/2022 What Is Your Level Of Alcohol Consumption? None [id number] Information not available 07/13/2022 Do You Wear A Helmet When Biking? No Pt Doesn't Bike [id number] Information not available 07/13/2022 Are You Blind Or Do You Have Difficulty Seeing? No Patient Has Cataracts In Both Eyes And Pt Wears Eyeglasses [id number] Information not available 07/13/2022 Is Blood Transfusion Acceptable In An Emergency? Yes [email or web address] Information not available 08/26/2022 What Is Your Level Of Caffeine Consumption? Occasional [id number] Information not available 07/13/2022 In The 14 Days Before Symptom Onset, Have You Had Close Contact With A Laboratory-conf irmed COVID-19 While That Case Was Ill? No [id number] Information not available 07/13/2022 In The 14 Days Before Symptom Onset, Have You Had Close Contact With A Person Who Is Under Investigation For COVID-19 While That Person Was Ill? No [id number] Information not available 07/13/2022 Are You Deaf Or Do You Have Serious Difficulty Hearing? No [id number] Information not available 07/13/2022 What Type Of Diet Are You Following? REGULAR [id number] Information not available 07/13/2022 Which Illicit Or Recreational Drugs Have You Used? None [email or web address].[id number] Information not available 07/13/2022 What Is The Highest Grade Or Level Of School You Have Completed Or The Highest Degree You Have Received? [id number] [id number] Information not available 07/13/2022 Have There Been Any Changes To Your Family Or Social Situation? No [id number] Information not available 07/13/2022 When Did You Quit Smoking? 16+yearssincelastc igarette 40 Years Ago [id number] Information not available 07/13/2022 Are There Any Guns Present In Your Home? No [id number].[id number] Information not available 07/13/2022 Do You Use Insect Repellent Routinely? No [id number] [id number] Information not available 07/13/2022 Where Do You Live? SingleLevelHouse MIGRATION.[id number] [id number] Information not available 07/13/2022 Do You Have A Medical Power Of Community Organization Aide? No MIGRATION.0301 [id number] Information not available 07/13/2022 Do You Have Any Pets? No Budget Specialist Sometimes MIGRATION.0301 [id number] Information not available 07/13/2022 What Is Your Relationship Status? Single MIGRATION.0301 [id number] Information not available 07/13/2022 Do You Use Your Seat Belt Or Car Seat Routinely? Yes MIGRATION.0301 [id number] Information not available 07/13/2022 Do You Have Smoke And Carbon Monoxide Detectors In Your Home? Yes MIGRATION.0301 [id number] Information not available 07/13/2022 At What Age Did You Start Smoking Tobacco? 28 MIGRATION.0301 [id number] Information not available 07/13/2022 Are You Passively Exposed To Smoke? No MIGRATION.0301 [id number] Information not available 07/13/2022 Are There Any Smokers In Your House? No MIGRATION.0301 [id number] Information not available 07/13/2022 Do You Participate In Social Media? Yes MIGRATION.0301 [id number] Information not available 07/13/2022 Do You Feel Stressed (tense, Restless, Nervous, Or Anxious, Or Unable To Sleep At Night)? [id number] MIGRATION.0301 [id number] Information not available 07/13/2022 Do You Use Any Illicit Or Recreational Drugs? No MIGRATION.0301 [id number] Information not available 07/13/2022 Do You Use Sunscreen Routinely? No MIGRATION.0301 [id number] Information not available 07/13/2022 Has Tobacco Cessation Counseling Been Provided? No MIGRATION.0301 [id number] Information not available 07/13/2022 Have You Recently Traveled Abroad? No MIGRATION.0301 [id number] Information not available 07/13/2022 Are You Currently In School? No MIGRATION.0301 [id number] Information not available 07/13/2022 Do You Have Any Dietary Restrictions? No No Sugar, Fish Every Other Day MIGRATION.0301 [id number] Information not available 07/13/2022 Do You Or Have You Ever Used Any Other Forms Of Tobacco Or Nicotine? No MIGRATION.0301 [id number] Information not available 07/13/2022 Sex: Female Functional Status Question Answer Note LastModified by Organizat ion Details LastModified Time Do you have difficulty walking or climbing stairs? Yes degenerative disks in back make it difficult for her to walk and her weight also MIGRATION.65446 [id number] Information not available 07/13/2022 Do you have transportation difficulties? No MIGRATION.25419 [id number] Information not available 07/13/2022 Are you able to walk? YESWOREST MIGRATION.58211 [id number] Information not available 07/13/2022 Do you have difficulty doing errands alone? No MIGRATION.41960 48946 Information not available 07/13/2022 Are you able to care for yourself? Yes MIGRATION.44248 21544 Information not available 07/13/2022 Do you have difficulty dressing or bathing? No MIGRATION.60401 71271 Information not available 07/13/2022 What is your exercise level? None MIGRATION.73218 [id number] Information not available 07/13/2022 Mental Status Question Answer Note LastModified by Organizat ion Details LastModified Time Do you have difficulty concentrating, remembering or making decisions? No [id number] Information not available 07/13/2022 Family History Relationship Description Onset Age of this Age Resolved Age Notes LastModified by Organization Details LastModified Time Mother Myocardial infarction MIGRATION.275 [id number] Not available 07/13/2022 04:44:24 Mother Heart disease MIGRATION.096 [id number] Not available 07/13/2022 04:44:24 Mother Cerebrovascu lar accident MIGRATION.669 [id number] Not available 07/13/2022 04:44:24 Mother Alzheimer's disease MIGRATION.361 [id number] Not available 07/13/2022 04:44:24 Maternal Grandmother Diabetes mellitus MIGRATION.881 [id number] Not available 07/13/2022 04:44:24 Sister Heart disease Not available 2023 12:01:25 Sister Diabetes mellitus Not available 2023 12:01:31 Sister Malignant neoplasm of skin Not available 2023 12:01:50 Sister Immune defect Not available 2023 12:02:18 Medical History Condition Response ALLERGIES/HAYFEVER Y HIGH CHOLESTEROL / HYPERLIPIDEMIA Y OBESITY Y GERD/NAUSEA Y ARTHRITIS Y CATARACTS Y HEADACHES/MIGRAINES Y HYPERTENSION Y CARDIAC ARRHYTHMIA Y ANXIETY DISORDER Y Gynecological History Statement/Question Response If Post Menopausal, Age at Menopause 49 Date of Last Mammogram 11/03/2022 Date of Last Colonoscopy 05/11/2016 Most Recent Mammogram Most Recent Bone Density 11/03/2022 Obstetrics History GPAL:G 0 P 0 0 0 0 Immunizations Vaccine Type Date Status Note Provider Nam e and Address Organization Details Recorded Time Influenza, split virus, quadrivalent, preservative 9 completed Not Available [facility] 07/13/2022 05:07:40 COVID-19, mRNA, LNP-S, PF, 100 mcg/0.5mL dose or 50 mcg/0.25mL dose 1 completed Not Available [facility] 07/13/2022 05:07:40 COVID-19, mRNA, LNP-S, PF, 100 mcg/0.5mL dose or 50 mcg/0.25mL dose 1 completed Not Available [facility] 07/13/2022 05:07:40 COVID-19, mRNA, LNP-S, PF, 100 mcg/0.5mL dose or 50 mcg/0.25mL dose 1 completed Not Available [facility] 07/13/2022 05:07:40 Influenza, split virus, quadrivalent, preservative 0 completed Not Available [facility] 07/13/2022 05:07:40 Influenza, split virus, quadrivalent, preservative 9 completed Not Available [facility] 07/13/2022 05:07:40 Influenza, split virus, trivalent, preservative 6 completed Not Available [facility] 07/13/2022 05:07:41 Tdap 5 completed Not Available [facility] 07/13/2022 05:07:41 Tdap 2 completed Not Available [facility] 07/13/2022 05:07:41 Pneumococcal conjugate PCV 13 1 completed Not Available [facility] 07/13/2022 05:07:41 Influenza, split virus, quadrivalent, PF 8 completed Not Available [facility] 07/13/2022 05:07:41 Influenza, split virus, quadrivalent, preservative 5 completed Not Available [facility] 07/13/2022 05:07:41 Influenza, split virus, trivalent, preservative 4 completed Not Available [facility] 07/13/2022 05:07:41 Influenza, split virus, quadrivalent, PF 7 completed Not Available [facility] 07/13/2022 05:07:41 Influenza, split virus, trivalent, preservative 3 completed Not Available [facility] 07/13/2022 05:07:41 Past Encounters Encounter ID Performer Location Encounter Start Date Encounter Closed Date Diagnosis/Indication Diagnosis SNOMED-CT Code Diagnosis ICD10 Code Diagnosis Note [id number] [facility] [place] [address] [place] [address] 09/08/2020 00:00:00 09/08/2020 10:57:40 [id number] [facility] [place] [address] [place] [address] 02/01/2021 00:00:00 02/01/2021 20:54:29 [id number] [facility] [place] [address] [place] [address] 01/13/2022 00:00:00 01/13/2022 10:54:35 [id number] [facility] [place] [address] [place] [address] 04/05/2022 00:00:00 04/05/2022 14:41:[id number] [address] 06/22/2022 00:00:00 06/22/2022 08:51:05 [id number] Carine Mcleod NP [address] [address] 07/20/2022 14:48:56 07/20/2022 16:05:07 Upper respiratory infection 36525927 J06.9 1. Drink plenty of water.2. May use OTC cold medication for symptoms. Allergic conjunctivitis of bilateral eyes [id number] 00609 H10.13 Stop eye cream. Try on benadryl at night for 7-10 days. [id number] Carine Mcleod NP [address] [address] 08/26/2022 11:05:17 08/26/2022 12:09:14 Allergic rhinitis 87040043 J30.9 Medrol dose daniela. If not helpful, may need kenalog injection [id number] Corrine Eddy, [facility] Pulmonolo gy [place] [address] [place] [address] 11/08/2022 11:50:58 11/08/2022 14:58:11 Obstructive sleep apnea syndrome 77535889 G47.33 I can not access original study today, [facility] 07/2017Dow nload for 90 days with 99% use greater than 4 hours.She is on PAP [id number] AHI is 1.1She has god use and clinical benefit.OS A is well correctedE ncouraged 100% compliance with all sleepFollo w with PCM for labsAdvise d good sleep habits and patterns:- Set a goal for at least 7 to 8 hours of sleep time per day.-Use the bed mainly for sleep and to go to bed only when tired. If unable to fall asleep after 30 minutes, patient should get out of bed but should not engage in any activity that requires sustained mental alertness. -Maintain a regular bedtime and wake-up time even on weekends or days off of work.-Avoi d excessive naps during the daytime. If a nap is necessary, limit it to no more than 30minutes. -Minimize environmen tara noise, bright lights, and extremes in bedroom temperatur e.-Avoid alcohol, caffeinate d beverages, and nicotine products for at least 6 hours prior to bedtime.-A void strenuous exercise and large meals for at least 4 hours prior to bedtime.Or yesenia for new machine todayFollo w up for compliance within 90 days Fatigue 97307220 R53.83 May need adjustment in settings. Restless sleep 08785487 G47.9 May need adjustment in settings. [id number] Carine Mcleod NP [address] [address] 12/27/2022 14:11:36 12/27/2022 15:35:58 Obesity 378074541 E66.9 Diet and exercise discussed. Obstructiv e sleep apnea syndrome 63995973 G47.33 Corrine Eddy [facility]TENAN[employer] WEL[employer] [facility] 91618282 E78.5 ezetimibe 10 [address] po daily[address]Dr[address] Alvarado Essential hypertension 24967389 I10 ASA 81 mg po daily.Furo semide 20 mg po daily.Mignon nopril 20 mg po daily.Nebi volol 5 mg po dailyDrHeraclio Alvarado Lumbar radiculopathy 128 818376 M54.16 Pain management . Spinal eder nosis of lumbar region 37907274 M48.061 Pain management . Vitamin D deficiency 347 38686 E55.9 vit d supplement Seasonal a llergic rhinitis 196078116 J30.2 montelukas t 10 mg po daily. Acid reflux 797598064 K2 1.9 Omeprazole 20 mg po daily. Anxiety 84284169 F41.9 escitalopr am 10 mg po daily. Osteopenia 584598025 M85 .80 11/03/22 osteopenia .Taking a bone health supplement . Vaginal odor 902744515 N 89.8 Doxy [id number] Corrine Eddy, AUTOMOTIVE WARRANTY ADMINISTRATOR-BC [facility] [place] [facility] [place] [address] [place] [address] 03/06/2023 12:07:09 03/06/2023 12:50:05 Obstructive sleep apnea syndrome 09179290 G47.33 I can not access original study today, staff to requestNew machine 3Dow nload for 30 days with 93% use greater than 4 hours.She is on PAP [id number] AHI is 1.7She has good use and clinical benefit.OS A is well correctedE ncouraged 100% compliance with all sleepFollo w with PCM for labsAdvise d good sleep habits and patterns:- Set a goal for at least 7 to 8 hours of sleep time per day.-Use the bed mainly for sleep and to go to bed only when tired. If unable to fall asleep after 30 minutes, patient should get out of bed but should not engage in any activity that requires sustained mental alertness. -Maintain a regular bedtime and wake-up time even on weekends or days off of work.-Avoi d excessive naps during the daytime. If a nap is necessary, limit it to no more than 30minutes. -Minimize environmen tara noise, bright lights, and extremes in bedroom temperatur e.-Avoid alcohol, caffeinate d beverages, and nicotine products for at least 6 hours prior to bedtime.-A void strenuous exercise and large meals for at least 4 hours prior to bedtime.Sh e should follow up in 6 months Fatigue 63617007 R53.83 May need adjustment in settings. 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 D50.8 E83.42 [id number] Navjot Myles MD [facility] [address] 10/24/2023 09:04:57 10/25/2023 09:04:57 Obstructive sleep apnea syndrome 19598681 G47.33 Iron deficiency 91357300 E61.1 Vitamin E deficiency 541 26383 E56.0 Health Concerns Section Related Observation LastModified by Organization Detai ls LastModified Time None Recorded Concern Status LastModified by Organization Details LastModified Time None Recorded Advance Directives Directive N: Payers Encounter Date Sequence Insurance Name Policy Number Policy Rhodes Covered Member ID Rhodes Member ID Guarantor Name 11/08/2022 1 [place] Lydia Quickbert [id number] [place] Antonio Kaiser 11/08/2022 2 [place] 104 [place] Antonio Kaiser [id number] Lydia Antonio Kaiser 12/27/2022 1 [place] Malene R Kaiser [id number] Malene R Kaiser 12/27/2022 2 [place] 104 [place] Antonio Kaiser [id number] [place] Antonio Kaiser 03/06/2023 1 [place] Antonio Kaiser [id number] [place] Antonio Kaiser 03/06/2023 2 [place] 104 [place] Antonio Kaiser [id number] [place] Antonio Kaiser 10/03/2023 1 [place] Antonio Kaiser [id number] Malene R Kaiser 10/03/2023 2 [place] 104 [place] Antonio Kaiser [id number] [place] R Kaiser 10/24/2023 1 [place] Antonio Kaiser [id number] 6 Malene R Kaiser 10/24/2023 2 [place] 104 Lydia Antonio Kaiser [id number] Lydia Quickbert Notes Date Note Type Note Provider Name and Address Organization Details Recorded Time 3 text/html Ms Kaiser presents today to re-establish care for further evaluation of JOSE FRANCISCO and PAPHas had this machine for over 5 years and feels like it is not working as well for her anymoreShe is waking more requently at night.Tells me that her nasal pillows fit well, she does not wake due to mask leak or discomfort.She endorses increased fatigue during the day.Reviewed medical and surgical historyReviewed family and social historyReviewed PCM notes and imagingReviewed medications and allergies Corrine Nunu, AUTOMOTIVE WARRANTY ADMINISTRATOR- [address], [place], [address], [address] [facility] 11/08/2022 16:41:50 3 text/html Here for 6 mo fu. Has odor in vaginal area. Pain in left back. Urine is 'vivid yellow'. Having fever, chills, dizziness. Symptoms for couple months with odor, Has tried otc options for yeast infections.Takes shower every morning. Odor is back every evening. Itch COPD- Seeing corrine eddy. CPAP.HTN- nebivolol, lisinopril, furosemideSpinal stenosis lumbar- Seeing massage therapist. Has been to Pain management.Degeneration cervical disc-Seeing massage therapistObese- Started weight watchers.Acid reflux- Omeprazole working well. Diet mods.Herpes cold sore- abrevaAnxiety/depression- Lexapro 10 mg po daily. Stable.Lipid- on zetia.Seeing Jenny cardiology. Dr. 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 Ennis GI last colonoscopy 06/11/2015.Massage therapy and osteoarthritis Dr. 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 Christiano retired.Vision exam- cataracts bilaterally, 2022. Left is worse and progressing faster.Dental- every 6 mo. Carine Mcleod NP [address], [place], [address], [address] [facility] 12/27/2022 15:05:46 3 text/html Ms Kaiser presents today to follow up on JOSE FRANCISCO and PAPShe has been sleeping better but continues to have some fatigueTells me that her nasal pillows fit well, she does not wake due to mask leak or discomfort.She endorses some fatigue during the day.Denies xerostomia and aerophagia Corrine Eddy, MILENA- [address], [place], [address], [email or web address] [facility] [employer] 03/06/2023 16:54:18 4 text/html Primary care/Referring provider: Terrence Cohn NP During the [facility] diagnostic sleep study on 05/12/17, sleep onset = 37.5 minutes, REM onset = 306 minutes, AHI = 16, supine AHI = 27, REM AHI = 79, PLMI = 10. During the [facility] titration sleep study on 07/06/17, sleep onset = 67.5 minutes, REM onset = 138 minutes, ResMed medium AirFit P10 nasal pillows @ 8 cmH2O, PLMI = 0.0. During the [facility] titration sleep study on 12/22/17, sleep onset = 23.5 minutes, REM onset = 297 minutes, Respironics medium Nuance gel nasal pillows @ 10 cmH2O, PLMI = 0.0.During the [facility] titration sleep study on 11/14/18, sleep onset = 31.5 minutes, REM onset = 224.5 minutes, Respironics medium Nuance gel nasal pillows @ 12 cmH2O, PLMI = 22. At home since 03/06/23, the patient uses a ResMed AirSense 11 autoset unit with heated humidification. The patient does not need the ramp to start low and go up slowly on the pressure anymore. There is some xerostomia in a.m. There is no hose/mask condensation with water.The patient wears a Respironics medium Nuance nasal pillows without chin strap. There is no claustrophobia, no nostril/nose bridge irritation, no facial rash, no facial numbness, no nosebleeding. The patient feels more refreshed upon waking and daytime alertness is improved. Energy levels are sustained until mid afternoon, around 3 pm. At home, the patient sleeps from 12 am to 8 am and wakes up without an alarm. Snoring: heavy, since 1980s.Snorting: noChoking: noCoughing: noGasping: noGagging: noSighing: noWitnessed apnea: yesTwitching or jerking of leg(s), arm(s), body, head: yesTeeth grinding: yesTeeth clenching: yesSleeptalking: noSleepwalking: noSleep crying: noBedwetting: noTongue/lip/gum/cheek biting: noSleeping with open mouth: yesSleep paralysis: noHypnagogic hallucinations: noHypnopompic hallucinations: noVivid dreams: noDifficulty with sleep onset: noDifficulty with sleep maintenance: yesSleep interruptions: nightmarePatient wakes up with: fatigue, xerostomia, sore throat, disorientationDaytime cataplexy: noMorning hypersomnolence: noAfternoon hypersomnolence: yesCaffeine sources in diet: coffee 1/3 cup per day, chocolate 1/3 candy bar per day Associated medical and psychiatric conditions:Congestive heart failure: noCoronary artery disease: noMyocardial infarction: noHypertension: yesArrhythmias: yesStroke: noBronchial asthma: noChronic obstructive pulmonary disease: noDepression: noBipolar disorder: noAnxiety: yesPanic disorder: noPosttraumatic stress disorder: noAttention deficit and hyperactivity disorder: noObsessive Compulsive disorder: noSchizophrenia: noSchizoaffective disorder: noPersonality disorder: noChronic analgesic use: noChronic sedative/hypnotic use: no EPWORTH SLEEPINESS SCALE (ESS) CHANCE OF DOZING SCORE0 = would never doze1 = slight chance of dozing2 = moderate chance of dozing3 = high chance of dozing SITUATION AND CHANCE OF DOZINGSitting and reading - 1Watching television - 1Sitting inactive in a public place (e.g. a theater or meeting) - 1As a passenger in a car for an hour without a break - 1Lying down to rest in the afternoon when circumstances permit - 2Sitting and talking to someone - 1Sitting quietly after lunch without alcohol - 1In a car, while stopped for a few minutes in the traffic - 0TOTAL SCORE 8Subjectively, patient has a slight chance of dozing. Navjot Myles MD [address] [place] [address], [address], [place] [facility] 10/03/2023 12:17:46 4 text/html Primary care/Referring provider: Terrence Cohn NP During the [facility] diagnostic sleep study on 05/12/17, sleep onset = 37.5 minutes, REM onset = 306 minutes, AHI = 16, supine AHI = 27, REM AHI = 79, PLMI = 10. During the [facility] titration sleep study on 07/06/17, sleep onset = 67.5 minutes, REM onset = 138 minutes, ResMed medium AirFit P10 nasal pillows @ 8 cmH2O, PLMI = 0.0. During the [facility] titration sleep study on 12/22/17, sleep onset = 23.5 minutes, REM onset = 297 minutes, Respironics medium Nuance gel nasal pillows @ 10 cmH2O, PLMI = 0.0.During the [facility] titration sleep study on 11/14/18, sleep onset = 31.5 minutes, REM onset = 224.5 minutes, Respironics medium Nuance gel nasal pillows @ 12 cmH2O. PLMI = 22 and she is here to go over her lab workup. At home since 10/03/23, the patient uses a ResMed AirSense 11 autoset unit with heated humidification. The patient does not need the ramp to start low and go up slowly on the pressure anymore. There is some xerostomia in a.m. There is no hose/mask condensation with water.The patient wears a Respironics medium Nuance nasal pillows without chin strap. There is no claustrophobia, no nostril/nose bridge irritation, no facial rash, no facial numbness, no nosebleeding. The patient feels more refreshed upon waking and daytime alertness is improved. Energy levels are sustained until mid afternoon, around 3 pm. At home, the patient sleeps from 12 am to 8 am and wakes up without an alarm. Snoring: heavy, since 1980s.Snorting: noChoking: noCoughing: noGasping: nGagging: noSighing: noWitnessed apnea: yesTwitching or jerking of leg(s), arm(s), body, head: yesTeeth grinding: yesTeeth clenching: yesSleeptalking: noSleepwalking: noSleep crying: noBedwetting: noTongue/lip/gum/cheek biting: noSleeping with open mouth: yesSleep paralysis: noHypnagogic hallucinations: noHypnopompic hallucinations: noVivid dreams: noDifficulty with sleep onset: noDifficulty with sleep maintenance: yesSleep interruptions: nightmarePatient wakes up with: fatigue, xerostomia, sore throat, disorientationDaytime cataplexy: noMorning hypersomnolence: noAfternoon hypersomnolence: yesCaffeine sources in diet: coffee 1/3 cup per day, chocolate 1/3 candy bar per day Associated medical and psychiatric conditions:Congestive heart failure: noCoronary artery disease: noMyocardial infarction: noHypertension: yesArrhythmias: yesStroke: noBronchial asthma: noChronic obstructive pulmonary disease: noDepression: noBipolar disorder: noAnxiety: yesPanic disorder: noPosttraumatic stress disorder: noAttention deficit and hyperactivity disorder: noObsessive Compulsive disorder: noSchizophrenia: noSchizoaffective disorder: noPersonality disorder: noChronic analgesic use: noChronic sedative/hypnotic use: no EPWORTH SLEEPINESS SCALE (ESS) CHANCE OF DOZING SCORE0 = would never doze1 = slight chance of dozing2 = moderate chance of dozing3 = high chance of dozing SITUATION AND CHANCE OF DOZINGSitting and reading - 1Watching television - 1Sitting inactive in a public place (e.g. a theater or meeting) - 1As a passenger in a car for an hour without a break - 1Lying down to rest in the afternoon when circumstances permit - 1Sitting and talking to someone - 0Sitting quietly after lunch without alcohol - 1In a car, while stopped for a few minutes in the traffic - 0TOTAL SCORE 6Subjectively, patient has a slight chance of dozing. Navjot Myles MD [address] [address], [place], [address], [facility] [employer] 10/24/2023 09:59:05 OBGyn Episode No OBEpisode recorded.
--- OUTSIDE RECORDS SUMMARY | 2024-06-07 05:36 | XMS_ITS | Clinical Summary ---
Author Organization [facility] Address [address], [facility] [address] [place] [address] Phone Care Team Providers Care Garment Finisher Name Role Phone Mireya Cohn APRN Primary Care Provider [phone] Aaron Ennis DO Unavailable [phone] Allergies Active Allergy Reactions Criticality Noted Date Comments Moxifloxacin Hcl In Nacl Rash 10/27/2015 Povidone Iodine Rash,Itching 07/15/2019 Cyclobenzaprine Hcl Rash 10/27/2015 Iodinated Contrast Media Rash 10/27/2015 Levofloxacin In D5w Rash 10/27/2015 Penicillins Rash 10/27/2015 Sulfa Antibiotics Rash 10/27/2015 Hydrocodone-Acetaminophen Rash 10/27/2015 Medications aspirin EC 81 MG Tablet Delayed Response Take 81 mg by mouth every morning. Active BIOTIN FORTE PO Take 80 mcg by mouth every morning. Active Cholecalciferol 2000 UNIT Tablet Take by mouth every morning. Active lisinopril (PRINIVIL, ZESTRIL) 40 MG Tablet Take 20 mg by mouth nightly. Active montelukast (SINGULAIR) 10 MG Tablet Take 10 mg by mouth every evening. Active fluticasone (FLONASE) 50 MCG/ACT Suspension 1-2 Sprays by Nasal route daily as needed. Use in each nostril as directed. Active Probiotic Product (PROBIOTIC DAILY PO) Take by mouth every evening. Active Cyanocobalamin (VITAMIN B-12 PO) Take 1 Tab by mouth once a week. Mondays Active Escitalopram Oxalate (LEXAPRO) 5 MG Tablet Take 10 mg by mouth nightly. Active furosemide (LASIX) 20 MG Tablet Take 20 mg by mouth every morning. Active nebivolol (BYSTOLIC) 5 MG Tablet nightly. Active omeprazole (PRILOSEC) 20 MG CAPSULE DELAYED RELEASE every morning. 03/21/2019 Active Immunizations Immunization Administration Dates Next Due Covid-19, Mrna, Lnp-s, PF, 1 00 mcg/0.5 mL Dose (Moderna) 07/21/2020,06/18/2020 Influenza Vaccine greater than 3 yrs 02/25/2015 Family History Medical History Relation Name Comments Heart Attack Mother Heart Disease Mother Stroke Mother Diabetes Sister Heart Disease Sister Melanoma Sister Relation Name Status Comments Father Mother Sister Social History Tobacco Use Types Packs/Day Years Used Date Smoking Tobacco: Former Cigarettes 0.3 10 0 07/28/1974 - 07/28/1984 Smokeless Tobacco: Never Tobacco Cessation:Counseling Given: No Alcohol Use Standard Drinks/Week Comments No 0 (1 standard drink = 0.6 oz pur e alcohol) AUDIT-C Answer Date Recorded Q1: How often do you have a drink containing alc ohol? 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 Not on file Not on file Not on file Last Filed Vital Signs Vital Sign Reading Time Taken Comments Blood Pressure 175/82 07/29/2019 7:35 AM CDT Pulse 78 07/29/2019 6:33 AM CDT Temperature 36 ??C (96.8 ??F) 07/29/2019 7:35 AM CDT Respiratory Rate 13 07/29/2019 7:35 AM CDT Oxygen Saturation 100% 07/29/2019 7:35 AM CDT Inhaled Oxygen Concentration - - Weight 124.7 kg (275 lb) 07/15/2019 9:00 AM DEICER TESTER Height 167.6 cm (5' 6) 07/15/2019 9:00 AM DEICER TESTER Body Mass Index 44.39 07/15/2019 9:00 AM DEICER TESTER Plan of Treatment Health Maintenance Due Date Last Done Comments DEXA Bone Density 1955 Hepatitis C Virus (HCV) Screening 1955 Colonoscopy 1998 Colorectal Cancer Screening 1998 Cologuard 12/13/2003 Immunochemical Fecal Occult Blood 12/13/2003 Mammogram 12/13/2003 Zoster Immunization (1 of 2) 12/13/2003 Pneumococcal Immunization (50+ years) (2 of 2 - PCV) 01/26/2021 01/27/2020 Influenza Immunization (#1) 01/14/202401/13, 02/11/2019, 02/08/2019, Additional history exists SARS-COV-2 Immunization ( season) 2024 05/04/2021, 07/21/2020, 06/18/2020 Respiratory Syncytial Virus (RSV) Immunization (Adult) (1 - 1-dose 75+ series) 2028 DTaP/Tdap/Td Immunization Discontinued 09/19/2014, TdaP Immunization Completed 09/19/2014, 03/27/2012 Pneumococcal Immunization Combined Discontinued 01/27/2020 Hepatitis B Immunization Aged Out No longer eligible based on patient's age to complete this topic Meningococcal Immunization (ACWY) Aged Out No longer eligible based on patient's age to complete this topic Rotavirus Immunization Aged Out No lo nger eligible based on patient's age to complete this topic Insurance [address] [address] MEDICARE Care Teams Garment Finisher Relationship Specialty Start Date End Date Mireya Cohn APRN PCP - General Advanced Practice Nurse 10/26/15 Aaron Ennis DO Gastroenterology 10/27/15
--- OUTSIDE RECORDS SUMMARY | 2024-06-07 05:36 | XMS_ITS | CONTINUITY OF CARE DOCUMENT ---
Author Name janell maciel Address Unknown Organization [facility] Address [address] [place] [address] Phone [phone] Care Team Providers Care Tangled Yarn Spool Straightener Name Role Phone Jenny RAMEY, Mitali Unavailable Harsha TIE CARRIER-Carine Unavailable TERRENCE BRAN Unavailable PROBLEMS Condition Status Date Provider Notes Dual chamber PM - Biotronik (MRI safe) active Zainab Hassan OBESITY active David Hopkins MD PVC'S active David Hopkins MD HYPERTENSION, ESSENTIAL active David Hopkins MD Family History of CVA or Stroke: active ? Mitali Alvarado MD Status Post Biotronik (MRI Safe) Loop Recorder completed - Zainab Hassan Atrial fibrillation with rapid response active Maria D Resendez RN PVD ? active Maria D Resendez RN JOSE FRANCISCO on CPAP active Maria D Resendez RN Bradycardia active [place] Preoperative cardiovascular examination completed - Gideon Martinez Chest pain-type to be determined active Scott Pyle RN Hyperlipidemia completed - Gideon Martinez Hyperlipidemia, unspecified active Yoselin boyd RN ENCOUNTERS Date Type Provider Location Encounter Diag nosis - In-person encounter Office Visit Mitali Alvarado MD [facility] - In-person encounter Office Visit Mitali Alvarado MD [facility] - In-person encounter Office Visit Mitali Alvarado MD [facility] - In-person encounter Office Visit Mitali Alvarado MD [facility] - In-person encounter Office Visit Mitali Alvarado MD [facility] Preoperative cardiovascular examinationHyperlipidemia - In-person encounter Office Visit Julio Cesar Christopher MD [facility] Chest pain-type to be determined - In-person encounter Office Visit Mitali Alvarado MD [facility] - In-person encounter Office Visit Mitali Alvarado MD [facility] - In-person encounter Office Visit Mitali Alvarado MD [facility] - In-person encounter Office Visit Mitali Alvarado MD [facility] - In-person encounter Office Visit Mitali Alvarado MD [facility] Status Post Biotronik (MRI Safe) Loop Recorder - In-person encounter Office Visit Mitali Alvarado MD [facility] Bradycardia - In-person encounter Office Visit Mitali Alvarado MD [facility] Status Post Biotronik (MRI Safe) Loop Recorder - In-person encounter Office Visit M[facility] Atrial fibrillation with rap id responsePVD ?JOSE FRANCISCO on CPAP - In-person encounter Office Visit Mitali Alvarado MD [facility] - In-person encounter Office Visit Mitali Alvarado MD [facility] - In-person encounter Office Visit Mitali Alvarado MD [facility] Nursing Family History of CVA or Stroke: - In-person encounter Office Visit David Hopkins MD [facility] OBESITYPVC'SHYPERTENSION, ESSENTIALHyperlipidemia, unspecified VITAL SIGNS Date Observation Value Provider Body Mass Index (Ratio) 58.42 kg/m2 Reid Alvarado MD blood pressure, diastolic 90 mm[Hg] Mayte nkLogic blood pressure, systolic 163 mm[Hg] Aria kLogic blood pressure, diastolic 90 mm[Hg] Ka yla Ruple blood pressure, systolic 163 mm[Hg] Ary la Ruple blood pressure, cuff size regular Ka yla Ruple oxygen saturation, oximetry 98 % Megan Ruple pulse rate 76 /min Megan Ruple weight E&M 362 [lb_av] Megan Ruple height E&M 66 [in_i] Megan Ruple Body Mass Index (Ratio) 58.10 kg/m2 Morris Shoemaker blood pressure, cuff size large Ke rri Gruenenfelder blood pressure, diastolic 86 mm[Hg] Ke rri Gruenenfelder blood pressure, systolic 134 mm[Hg] Ker ri Gruenenfelder oxygen saturation, oximetry 96 % Erika Gruenenfelder respiratory rate E&M 12 /min Erika G ruenenfelder pulse rate 82 /min Erika Gruenenfe lder weight E&M 360 [lb_av] Erika Gruenenfe lder height E&M 66 [in_i] Erika Gruenenfe lder blood pressure, diastolic 86 mm[Hg] Mayte nkLogic blood pressure, systolic 140 mm[Hg] Aria kLogic Body Mass Index (Ratio) 56.32 kg/m2 Morris Shoemaker blood pressure, cuff size large Ke rri Gruenenfelder blood pressure, diastolic 86 mm[Hg] Ke rri Gruenenfelder blood pressure, systolic 140 mm[Hg] Anibal ri Gruenenfelder oxygen saturation, oximetry 94 % Erika Gruenenfelder respiratory rate E&M 14 /min Erika G ruenenfelder pulse rate 87 /min Erika Gruenenfe er weight E&M 349 [lb_av] Erika Gruenenfe er height E&M 66 [in_i] Erika Gruenenfe er Body Mass Index (Ratio) 55.84 kg/m2 Tadanielle Martinez blood pressure, cuff size large Ke rri Gruenenfelder blood pressure, diastolic 80 mm[Hg] Ke rri Gruenenfelder blood pressure, systolic 120 mm[Hg] Anibal ri Gruenenfelder oxygen saturation, oximetry 96 % Erika Gruenenfelder respiratory rate E&M 16 /min Erika G ruenenfelder pulse rate 86 /min Erika Gruenenfe er weight E&M 346 [lb_av] Erika Gruenenfe er height E&M 66 [in_i] Erika Gruenenfe er Body Mass Index (Ratio) 48.90 kg/m2 Naveen Christopher MD temperature E&M 99.8 [degF] Scott Gordon blood pressure, cuff size large Geoffrey Pyle RN blood pressure, diastolic 76 mm[Hg] Geoffrey Pyle RN blood pressure, systolic 156 mm[Hg] Scott Pyle RN oxygen saturation, oximetry 96 % Scott Pyle RN respiratory rate E&M 20 /min Scott leon RN pulse rate 68 /min Scott Pyle RN weight E&M 303 [lb_av] Scott Pyle RN Body Mass Index (Ratio) 45.58 kg/m2 Jord en Yann blood pressure, diastolic 90 mm[Hg] Cristiana Martel blood pressure, systolic 141 mm[Hg] Michelle Martel oxygen saturation, oximetry 97 % July Martel respiratory rate E&M 20 /min Chantal Kurtzenson pulse rate 65 /min July Sims nson weight E&M 282.4 [lb_av] July Kurtz enson height E&M 66 [in_i] July Sims nson Body Mass Index (Ratio) 43.67 kg/m2 Jord en Yann blood pressure, diastolic 80 mm[Hg] Cristiana Martel blood pressure, systolic 136 mm[Hg] Michelle Martel oxygen saturation, oximetry 97 % July Martel respiratory rate E&M 18 /min Chantal Kurtzenson pulse rate 78 /min July Sims nson weight E&M 270.6 [lb_av] July Kurtz enson height E&M 66 [in_i] July Sims nson Body Mass Index (Ratio) 42.12 kg/m2 Jord en Yann blood pressure, diastolic 76 mm[Hg] Ki lleen Parekh blood pressure, systolic 122 mm[Hg] Kil bryan Parekh oxygen saturation, oximetry 96 % Lalo Parekh respiratory rate E&M 16 /min Lalo Parekh pulse rate 74 /min Angola Parekh blood pressure, resting Yes Kill tavia Parekh weight E&M 261 [lb_av] Lalo Parekh height E&M 66 [in_i] [facility] (Ratio) 43.41 kg/m2 Reid Alvarado MD blood pressure, cuff size regular Cy taz Montero blood pressure, diastolic 70 mm[Hg] Cy taz Montero blood pressure, systolic 138 mm[Hg] Magalis joanne Montero oxygen saturation, oximetry 97 % Isis Montero respiratory rate E&M 16 /min Isisjoanne Montero pulse rate 70 /min Isis Radha l weight E&M 269 [lb_av] Isis Campbel l height E&M 66 [in_i] Isis Campbel l Body Mass Index (Ratio) 42.44 kg/m2 James lombardo Tej blood pressure, diastolic 80 mm[Hg] Ki joselo Parekh blood pressure, systolic 140 mm[Hg] Antony adams [place] oxygen saturation, oximetry 97 % Angola Parekh respiratory rate E&M 16 /min [facility] pulse rate 53 /min Lalo Parekh weight E&M 263 [lb_av] Lalo Parekh height E&M 66 [in_i] [facility] Body Mass Index (Ratio) 46.38 kg/m2 James lombardo Tej blood pressure, diastolic 85 mm[Hg] Cristiana Martel blood pressure, systolic 144 mm[Hg] Michelle Martel oxygen saturation, oximetry 96 % July Martel respiratory rate E&M 18 /min Chantal Martel pulse rate 66 /min July jimenez weight E&M 287.4 [lb_av] July jackson height E&M 66 [in_i] Angola Parekh Body Mass Index (Ratio) 50.84 kg/m2 Stepan beata Ohara blood pressure, diastolic 80 mm[Hg] Da manpreet Soto blood pressure, systolic 110 mm[Hg] Dac ia Soto oxygen saturation, oximetry 95 % Jaja Soto respiratory rate E&M 18 /min Jaja V oss pulse rate 63 /min Jaja Soto weight E&M 315 [lb_av] Jaja Soto height E&M 66 [in_i] Jaja Soto Body Mass Index (Ratio) 50.19 kg/m2 Linwood Resendez RN blood pressure, cuff size regular Cr smitha Mcgarry blood pressure, diastolic 80 mm[Hg] Cr smitha Mcgarry blood pressure, systolic 130 mm[Hg] Cry statrista Mcgarry oxygen saturation, oximetry 98 % Stephanie Zeferino respiratory rate E&M 17 /min Stephanie Mcgarry pulse rate 62 /min Stephanie Canada s weight E&M 311 [lb_av] Stephanie Canada s height E&M 66 [in_i] Stephanie [place] s Body Mass Index (Ratio) 49.06 kg/m2 Reid Alvarado MD blood pressure, diastolic 80 mm[Hg] [facility], systolic 138 mm[Hg] Antony adams Parekh oxygen saturation, oximetry 97 % Angola Parekh respiratory rate E&M 16 /min Angola Parekh pulse rate 69 /min Angola Parekh weight E&M 304 [lb_av] Angola Parekh height E&M 66 [in_i] Angola Parekh Body Mass Index (Ratio) 48.90 kg/m2 Reid Alvarado MD blood pressure, cuff size large [place] blood pressure, diastolic, standing 86 mm [Hg] Erika Gamboameg blood pressure, systolic, standing 122 mm [Hg] Erika Bakerstephenlópezatiliocolin oxygen saturation, oximetry 97 % Erika Gamboaatiliocolin respiratory rate E&M 18 /min Erika Nath anahialiciawilber pulse rate 63 /min Erika Rachel kelsea weight E&M 303 [lb_av] Erika Rachel er height E&M 66 [in_i] Erika Rachel [facility] Body Mass Index (Ratio) 49.22 kg/m2 Reid Alvarado MD blood pressure, diastolic 80 mm[Hg] Mei Smith blood pressure, systolic 130 mm[Hg] Marivel Jimenez oxygen saturation, oximetry 97 % Jerilyn Jimenez respiratory rate E&M 16 /min Jerilyn Jimenez pulse rate 58 /min Jerilyn Jimenez weight E&M 305 [lb_av] Jerilyn Jimenez height E&M 66 [in_i] Jerilyn Jimenez pulse rate 63 /min Scott Pyle RN oxygen saturation, oximetry 99 % Scott Pyle RN respiratory rate E&M 22 /min Scott leon RN weight E&M 315 [lb_av] Scott Pyle RN ALLERGIES Allergy Name Onset Date Reaction Criticality Status STATINS myalgias myalgias Low Criticality ac tive ELIQUIS tongue swelling, rash/flushed skin H igh Criticality active CLINDAMYCIN Low Criticality active FLEXERIL Low Criticality active AVELOX Low Criticality active PENICILLIN Low Criticality active LEVAQUIN Low Criticality active VICODIN Low Criticality active SULFA Low Criticality active AMOXICILLIN Low Criticality active SHELLFISH Low Criticality active IODINE Low Criticality active RESULTS Date Observation Value Provider Reference Range Interpretation Location c-reactive protein, quantitative, serum 0.68 mg/L Link[facility] 0.00-3.00 lipoprotein, beta, serum, point, quantitative, calculated 117 mg/dL [facility] 0-99 High HDL cholesterol, serum 44 mg/dL [facility] >39 triglyceride, serum, random 92 mg/dL [facility] 0-149 cholesterol, serum 178 mg/dL [facility] [phone]/10 /12 alanine aminotransferase (SGPT), serum 12 1/L [facility] 0-32 aspartate aminotransferase (SGOT), serum 17 1/L [facility] 0-40 alkaline phosphatase, serum 76 1/L [facility] 44-121 bilirubin, serum, total 0.5 mg/dL [facility] 0.0-1.2 globulin, serum 2.1 [facility] 1.5-4.5 albumin, serum 3.9 g/dL [facility] 3.9-4.9 protein, total, serum 6.0 g/dL [facility] 6.0-8.5 calcium, serum 8.9 mg/dL [facility] 8.7-10.3 carbon dioxide, venous blood 25 mmol/L [facility] 20-29 chloride, serum 107 mmol/L [facility] 96-106 High potassium, serum 4.3 mmol/L [facility] 3.5-5.2 sodium, serum 144 mmol/L [facility] [phone]/10 /12 urea nitrogen/creatinine ratio, serum 16 [facility] 12-28 creatinine, serum 0.82 mg/dL [facility] 0.57-1.00 urea nitrogen, blood 13 mg/dL [facility] 8-27 blood glucose, random 95 mg/dL [facility] 70-99 prothrombin time (patient) 10.4 s [facility] 9.1-12.0 international normalized ratio (INR) 1.0 [facility] 0.8-1.2 bacteria, urine microscopy Few [facility] None seen/Few cast type, urinalysis Hyaline casts [facility] N/A hyaline casts, urine Present [facility] None seen Abnormal epithelial cells, urine 0-10 [facility] 0 - 10 RBC, Urine None seen /hpf [facility] 0 - 2 WBC urine on microscopy 0-5 /hpf [facility] 0 - 5 urinalysis, microscopic examination See below: [facility] nitrate, urine Negative [facility] Negative urobilinogen, urine, semiquantitative (dipstick) 0.2 [facility] 0.2-1.0 bilirubin, urine Negative [facility] Negative hemoglobin, urine, by dipstick Negative [facility] Negative ketones, urine, by test strip Negative [facility] Negative glucose, urine Negative [facility] Negative protein, urine, semiquantitative (dipstick) Negative [facility] Negative/Tra ce leukocyte esterase, urine, by dipstick Trace [facility] Negative Abnormal appearance, urine Clear [facility] Clear urine color Yellow Link[facility]ic Yellow pH, urine, semiquantitative 6.5 [facility] 5.0-7.5 specific gravity, body fluid 1.011 [facility] 1.005-1.030 calcium, serum 9.1 mg/dL [facility] 8.7-10.3 carbon dioxide, venous blood 25 mmol/L [facility] 20-29 chloride, serum 103 mmol/L [facility] 96-106 potassium, serum 4.2 mmol/L [facility] 3.5-5.2 sodium, serum 142 mmol/L [facility] [phone]/07 /09 urea nitrogen/creatinine ratio, serum 19 [facility] 12-28 eGFR if 94 mL/min/{1.7 3_m2} [facility] >59 eGFR if not 82 mL/min/{1.7 3_m2} [facility]ic >59 creatinine, serum 0.77 mg/dL [facility] 0.57-1.00 urea nitrogen, blood 15 mg/dL [facility] 8-27 blood glucose, random 90 mg/dL [facility] 65-99 basophil count, absolute 0.0 x10E3/uL [facility] 0.0-0.2 Eosinophil Absolute Count 0.1 X10E3/UL [facility] 0.0-0.4 monocyte count, blood, automated 0.3 X10E3/UL [facility] 0.1-0.9 lymphocyte count, blood, automated 1.4 X10E3/UL [facility] 0.7-3.1 Absolute Neutrophils 2.2 X10E3/UL [facility] 1.4-7.0 basophils as percent of blood leukocytes 1 % [facility] Not Estab. eosinophils as percent of blood leukocytes 2 % [facility] Not Estab. monocytes as percent of blood leukocytes 7 % [facility] Not Estab. lymphocytes as percent of blood leukocytes 35 % [facility] Not Estab. neutrophils as percent of blood leukocytes 55 % [facility] Not Estab. platelet count 202 X10E3/UL [facility] [phone]/07 /09 red blood cell distribution width 12.8 % [facility] 12.3-15.4 mean corpuscular hemoglobin concentration, RBC 32.8 G/DL [facility] 31.5-35.7 mean corpuscular hemoglobin, RBC 30.7 pg [facility] 26.6-33.0 mean corpuscular volume, RBC 94 fL [facility] 79-97 hematocrit, blood 40.0 % [facility] 34.0-46.6 hemoglobin, blood 13.1 g/dL [facility] 11.1-15.9 erythrocyte (RBC) count 4.27 X10E6/UL [facility] 3.77-5.28 leukocyte count, blood 3.9 [facility]10E3/UL [facility] coagulation managed by Scott Pyle RN international normalized ratio (INR) 1.2 Isis Montero Normal prothrombin time (patient) 14.0 s Isis Montero coagulation managed by Zainab Park CANDY STARCH MOLD PRINTER Zainab Park international normalized ratio (INR) 1.0 Isis Montero Normal prothrombin time (patient) 12.2 s Isis Winston HISTORY OF MEDICATION USE Medication Status Instructions Dates Provider Indications Com ments rosuvastatin 10 mg tablet active Take 1 tablet by mouth once a day 08/31 Morris Shoemaker nebivolol 5 mg tablet active TAKE 1 TAB LET BY MOUTH EVERY DAY 01/03 Nohelia Ram nebivolol 5 mg tablet completed Take 1 tab let by mouth once a day 05/24 - 01/03 Nohelia Ram omeprazole 20 mg capsule,delayed release(DR/EC) active Take 1 capsule by mouth once a day TAKE 1 CAPSULE DAILY 05/24 Kiley Birmingham ezetimibe 10 mg tablet active TAKE ONE TABLET BY MOUTH EVERY DAY 07/21 July Martel ezetimibe 10 mg tablet completed TAKE ONE TABLET BY MOUTH EVERY DAY 07/19 - 07/21 Chastity Carrie ezetimibe 10 mg tablet completed TAKE ONE TABLET BY MOUTH EVERY DAY 07/19 - 07/21 Chastity Carrie vitamin [id number] acid unspecified unspecified active Take 1 tablet by mouth once a week 1999mcg every week Cayla López NP Zetia 10 mg tablet completed 1 tablet once a day 06/25 - 07/19 Gideon Martinez ZETIA 10 MG ORAL TABLET completed ONE TAB. DAILY, ( okay for generic preferred will start patient on statin too, awre that patient is on LEXAPRO 01/29 - 02/02 Mitali Alvarado MD LIPITOR 80 MG ORAL TABLET completed ONE TAB. DAILY, ( okay for generic preferred statin) will start patient on Zetia too, awre that patient is on LEXAPRO 01/29 - 06/25 Gideon Martinez Bystolic 5 mg tablet completed 1 tablet on a day - 05/24 Erika Kirk PERCOCET 5-325 MG ORAL TABLET completed Take one tablet every 6 hours as needed for pain 11/26 - 12/03 July Martel DOXYCYCLINE MONOHYDRATE 100 MG ORAL CAPSULE completed One capsule twice a day for two weeks. Start taking 3 days before procedure, stay away from sun 11/01 - 12/03 July Martel omeprazole 20 mg tablet,delayed release (DR/EC) completed Take 1 tablet once a day 09/28 - 05/24 Erika Kirk Vitamin D3 50 mcg (2,000 unit) tablet active Take 1 tablet once a day 08/31 Erika Kirk aspirin 81 mg tablet,delayed release (DR/EC) active Take 1 tablet once a day 08/31 Erika Kirk SAVAYSA 60 MG ORAL TABLET completed one tab daily 02/07 - 12/03 July Martel XARELTO 20 MG ORAL TABLET completed One tab. daily with evening meal 12/29 - 02/07 Loida Luque RN ELIQUIS 5 MG ORAL TABLET completed one tablet twice daily, stop pradaxa 11/29 - 11/30 Oly Wongenz ELIQUIS 5 MG ORAL TABLET completed one tablet twice daily, stop pradaxa 11/29 - 11/30 Oly Shukla FLECAINIDE ACETATE 50 MG ORAL TABLET completed One tablet twice a day 11/24 - 12/03 July Martel RANITIDINE HCL 150 MG ORAL TABLET completed ONE TAB TWICE DAILY 11/24 - 12/03 July Martel PRADAXA 150 MG ORAL CAPSULE completed One capsule twice a day. TAKE WITH LARGE GLASS OF WATER! 11/24 - 11/29 Mitali Alvarado MD ELIQUIS STARTER PACK 5 MG ORAL TABLET completed one tablet twice a day, okay substitute NOAC to preferred NOAC ,stop aspirin 10/26 - 11/02 Mitali Alvarado MD ELIQUIS 5 MG ORAL TABLET completed One tablet twice daily. 10/26 - 12/03 Jajamiri Valera FLECAINIDE ACETATE 100 MG ORAL TABLET completed One tablet twice daily. 10/26 - 12/03 Jaja Valera Lasix 20 mg tablet active once a day 06/02 Mitali Alvarado MD MAGNESIUM OXIDE 400 MG ORAL TABLET completed ONE TAB TWICE A DAY 06/02 - 12/03 Jaja Valera Lexapro 10 mg tablet active Take 1 tabl et once a day 06/02 Erika Kirk OMEPRAZOLE 40 MG ORAL CAPSULE DELAYED RELEASE completed 1 tab daily 06/02 - 12/03 July Martel lisinopril 20 mg tablet active 1 tablet once a day July Martel CLINDAMYCIN HCL 300 MG ORAL CAPSULE completed one tablet PO three times daily for 10 days 06/29 - 06/02 Lalo Parekh PERCOCET 5-325 MG ORAL TABLET completed one tablet PI q 6 hours prn for moderate pain 06/29 - 06/02 Lalo Parekh MAGNESIUM OXIDE 400 MG ORAL TABLET completed ONE TAB TWICE A DAY 05/17 - 12/03 Erika Kirk VITAMIN D 2000 UNIT ORAL TABLET completed 05/17 - 08/31 Lalo Parekh EQL FLUTICASONE CHILDRENS 50 MCG/ACT SUSP active 2 spray into both nostrils NEEDED 05/17 Cayla Fendler GROUNDWATER MONITORING TECHNICIAN Biotin 100+10 800-195 mcg-mg tablet active once a day 05/17 Erika Kirk Daily Probiotic (S. boulardii) 250 mg capsule active Take 1 capsule once a day 05/17 Erika Reagan montelukast 10 mg tablet active Take 1 tablet once a day 10/17 Erika Bakermelany #90, 90 days supply, Filled 7 PRAVASTATIN SODIUM 20 MG ORAL TABLET completed 10/17 - 06/02 Angola Parekh #90, 90 days supply, Filled 7 HYDROCHLOROTHIAZIDE 25 MG ORAL TABLET completed 1/2 tab daily 07/23 - 12/03 Erika Bakermelany #90, 90 days supply, Filled 7 AMLODIPINE BESYLATE 5 MG ORAL TABLET completed take 1 tab once daily 01/17 - 01/25 Roberto Lerner #90, 90 days supply, Filled 7 DICLOFENAC POTASSIUM TABLET completed 75mg 1-2 times daily - 12/03 Jerilyn Jimenez SKELAXIN 800 MG ORAL TABLET completed 1-2 tab daily - 12/03 Jerilyn Jimenez ASPIRIN 81 MG ORAL TABLET completed ONE TAB. DAILY - 02/07 Loida Luque RN LIPITOR 10 MG ORAL TABLET completed ONE TAB. DAILY - 12/03 July Martel TRIAMTERENE-HCTZ 37.5-25 MG ORAL TABLET completed ONE TAB. DAILY - 12/03 Jerilyn Jimenez ATENOLOL 25 MG ORAL TABLET completed ONE TAB. DAILY - 02/07 Mitali Alvarado MD SOCIAL HISTORY Date Observation Value Provider alcohol use no [facility] smoking, year quit 1983 Morrisadán lainez number of years as a smoker less than 10 years [facility] smoking, date started 10 Morris lowe smoking history, tot al pack/year 2008 Morrisadán Shoemaker cigarette use yes Morris [facility] smoking status Former smoker Morris Marshall i alcohol use no Morris Shoemaker smoking, year quit 1983 Morris lainez number of years as a smoker less than 10 years Morris Shoemaker smoking, date started Morris lowe smoking history, tot al pack/year 2008 Morris Shoemaker cigarette use yes Morris Shoemaker smoking status Former smoker Morris Marshall i cigarette use yes Cayla Ceciliodl er GROUNDWATER MONITORING TECHNICIAN smoking status Former smoker Cayla Cecilio dler GROUNDWATER MONITORING TECHNICIAN social history E&M Marital Statu s: Single L nilda alone E thnicity: Smoking History: Kenneth mustafa is a former smoker. Gideon Martinez social history reviewed E&M revi ewed - no changes required Gideon Martinez physical exercise, f requency, days per week no Erika Reagan caffeine use, averag e drinks per day yes Erika Bakermelany smoking, year quit 1983 Erika Segundo [place] number of years as a smoker less than 10 years Erikalucio Kirk smoking, date started Erika Kirk smoking history, tot al pack/year 2008 Erika Reagan cigarette use yes Erika Bakernicole weaver smoking status Former smoker Erika Bakerracquel merino physical exercise, f requency, days per week no Gideon Martinez caffeine use, averag e drinks per day yes Gideon Martinez smoking, year quit 1983 Gideon Martinez number of years as a smoker less than 10 years Gideon Martinez smoking, date started Gideon Martinez smoking history, tot al pack/year 2008 Gideon Juan cigarette use yes Gideon Juan smoking status Former smoker Gideon Martinez number of grandchildren Mitali Martinez social history reviewed E&M revi ewed - no changes required Peteyadniellehayden Martinez number of grandchildren Julio Cesar Rhoades social history E&M Marital Statu s: Single L nilda alone E thnicity: Smoking History: Kenneth mustafa is a former smoker. Gavin Rhoades social history reviewed E&M revi ewed - no changes required Gavin Rhoades smoking status Former smoker Gavin clark social history reviewed E&M revi ewed - no changes required Roberto Yann physical exercise, f requency, days per week no July Kurtzenson caffeine use, averag e drinks per day yes July Kurtzenson smoking, year quit 1983 July Kurtzenson number of years as a smoker less than 10 years July Kurtzenson smoking, date started Terrell Martel smoking history, tot al pack/year 2008 July Kurtzenson cigarette use yes July Kurtz enson smoking status Former smoker July Valentino social history reviewed E&M revi ewed - no changes required Roberto Yann physical exercise, f requency, days per week no July Kurtzenson caffeine use, averag e drinks per day yes July Kurtzenson smoking, year quit 1983 July Kurtzenson number of years as a smoker less than 10 years July Martel smoking, date started Terrell Kurtzenson smoking history, tot al pack/year 2008 July Martel cigarette use yes July Kurtz enson smoking status Former smoker July Valentino social history reviewed E&M revi ewed - no changes required Roberto eLrner smoking history, tot al pack/year 2008 Zainab Mo smoking history, tot al pack/year 2008 Susie Liu RN social history E&M Marital Statu s: Single L nilda alone E thnicity: Smoking History: P atronald is a former smoker. Paco Guerra social history reviewed E&M revi ewed - no changes required Paco Guerra physical exercise, f requency, days per week no Isis Montero alcohol use, average drinks per day none Isis Montero alcohol use no Isis Radha l caffeine use, averag e drinks per day yes Isis Montero smoking, year quit 1983 Isis jama number of years as a smoker less than 10 years Isis Montero smoking, date started Kyler Montero smoking history, tot al pack/year 2007 Isis Montero cigarette use yes Isis Carmen ll smoking status Former smoker Isis Vinayak brandt social history reviewed E&M revi ewed - no changes required [place] social history E&M Marital Statu s: Single L nilda alone E thnicity: Smoking History: P ramsey is a former smoker. [place] physical exercise, f requency, days per week no Lalo Parekh alcohol use, average drinks per day none Lalo Parekh alcohol use no Lalo Parekh caffeine use, averag e drinks per day yes Lalo Parekh smoking, year quit 1983 [place] Katie ngram number of years as a smoker less than 10 years Lalo Parekh smoking, date started Killee n Parekh smoking history, tot al pack/year 2007 Lalo Parekh cigarette use yes [place] Parekh smoking status Former smoker Lalo Ingr am social history reviewed E&M revi ewed - no changes required [place] social history E&M Marital Statu s: Single L nilda alone E thnicity: Smoking History: Kenneth mustafa is a former smoker. [place] smoking, year quit 1983 July Martel number of years as a smoker less than 10 years July Martel smoking, date started Terrell Martel smoking history, tot al pack/year 2007 July Martel cigarette use yes July jackson smoking status Former smoker July Valentino physical exercise, f requency, days per week no [place] Parekh alcohol use, average drinks per day none [place] Parekh alcohol use no Lalo Parekh caffeine use, averag e drinks per day yes [place] Parekh smoking history, tot al pack/year 2007 [place] smoking history, tot al pack/year 1973 [place] social history E&M Marital Statu s: Single L nilda alone E thnicity: Smoking History: Kenneth mustafa is a former smoker. Mandeep Lev social history reviewed E&M revi ewed - no changes required Mandeep Kymariajose physical exercise, f requency, days per week no Jaja Soto alcohol use, average drinks per day none Jaja Soto alcohol use no Jaja Soto caffeine use, averag e drinks per day yes Jaja Soto smoking, year quit 1983 Jaja Garth s number of years as a smoker less than 10 years Jaja Soto smoking, date started Jaja Soto smoking history, tot al pack/year 2006 Jaja Soto cigarette use yes Jaja Soto smoking status Former smoker Jaja Soto number of grandchildren Mitali Alvarado MD social history reviewed E&M revi ewed - no changes required Mitali Alvarado MD smoking status Former smoker Stephanie hutchinson social history E&M Marital Statu s: Single L nilda alone E thnicity: Smoking History: P ramsey is a former smoker. Mitali Alvarado MD social history reviewed E&M revi ewed - no changes required Mitali Alvarado MD physical exercise, f requency, days per week no [facility] alcohol use, average drinks per day none [facility] alcohol use no [facility] caffeine use, averag e drinks per day yes [facility] smoking, year quit [address] [facility] number of years as a smoker less than 10 years [facility] smoking, date started n [place] smoking history, tot al pack/year 2006 [facility] cigarette use yes [facility] smoking status Former smoker [facility] smoking history, tot al pack/year 2006 Susie Liu RN smoking history, tot al pack/year 2006 Loida Crenshaw social history E&M Marital Statu s: Single L nilda alone E thnicity: Smoking History: Kenneth mustafa is a former smoker. Mitali Alvarado MD social history reviewed E&M revi ewed - no changes required Mitali Alvarado MD physical exercise, f requency, days per week no Erika Kirk alcohol use, average drinks per day none Erika Kirk alcohol use no Erika box caffeine use, averag e drinks per day yes Erika Kirk smoking, year quit 1983 Erika godfreyenfelder number of years as a smoker less than 10 years Erika Kirk smoking, date started 10 Erika Kirk smoking history, tot al pack/year 2006 Erika Gamboameg cigarette use yes Erika weaver smoking status Former smoker Erika saenzmeg smoking history, tot al pack/year 2006 Yoselin [place] RN smoking history, tot al pack/year 2006 Erika Gamboameg social history E&M Marital Statu s: Single L nilda alone E thnicity: Smoking History: Kenneth mustafa is a former smoker. Mitali Alvarado MD social history reviewed E&M julieth santosed - no changes required Mitali Alvarado MD alcohol use no Jerilyn Jimenez smoking, year quit 1984 Jerilyn barriga smoking, date started 10 Jerilyn Jimenez cigarette use yes Jerilyn Jimenez physical exercise, f requency, days per week no Jerilyn Jimenez alcohol use, average drinks per day none Jerilyn Jimenez caffeine use, averag e drinks per day yes Jerilyn Jimenez smoking status Former smoker Jerilyn Jimenez social history E&M Marital Statu s: Single L nilda alone E thnicity: Scott Pyle RN social history reviewed E&M reviewed Scott Pyle RN physical exercise, f requency, days per week no [employer] caffeine use, averag e drinks per day yes [facility] alcohol use, average drinks per day none [facility] number of years as a smoker less than 10 years [facility] smoking status [facility]uit [facility] MENTAL STATUS Date Observation Value Provider assessment of judgme nt and insight E&M Alert and oriented to time, place and person. Mood and affect are normal. Scott Pyle RN FAMILY HISTORY Family Member Condition Mother Family History of CV A or Stroke: INSURANCE PROVIDERS Payer name Policy type / Coverage type Butch red green party ID [place] [employer] Medicare [id number] [facility] [id number] ADVANCE DIRECTIVES Name Date DISCUSSED - NO DECISION MADE TREATMENT PLAN Date Name Performer [id number],C,e ncouraged lifestyle modications and weight loss for improved health. Cayla López NP [id number],C,no recurrence on last remote check Cayla López NP [id number],C, B P today: 140/86 P rior BP: 120/80 (01/29/2021) Labs Reviewed: C reat: 0.77 (11/20/2018) Her updated medication list for this problem includes: Nebivolol 5 Mg Tablet (Nebivolol) ..... Take 1 tablet by mouth once a day Lisinopril 20 Mg Tablet (Lisinopril) ..... 1 tablet once a day Aspirin 81 Mg Tablet,delayed Release (dr/ec) (Aspirin) ..... Take 1 tablet once a day Lasix 20 Mg Tablet (Furosemide) ..... Once a day Cayla López NP [id number],C, Chol 193, trig 107, HDL 48, LDL 126 (01/2022 LDL 123) intolerant of statins. on zetia. encouraged to cut down on fried fatty foods, sweets, cheeses, butter. increased intake of fish, ie tuna or salmon to 2-3 times per week. lipids in 1 year. 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 ECHO 03/2021 1. Abnormal septal motion consistent with pacemaker or ICD implant . Normal left ventricular systolic function. Normal left ventricular size. Normal left ventricular wall thickness. There is E to A wave reversal consistent with impaired LV relaxation. E/E': 5.7. Left ventricular ejection fraction is measured at 60 %. 2. Normal right ventricular size. Normal right ventricular systolic function. Linear artifact seen in the right ventricle is suggestive of a catheter, pacer lead, or ICD lead. 3. There is non-specific thickening of the mitral valve leaflets. Mild mitral valve regurgitation. cath: 2017 normal coronaries Cayla López [id number],C,i nterrogation today 2 HVR SVT 04/08/20 2 seconds, and 01/01/2020 2 seconds. n ormal device function. battery 85% [facility]KG [id number],[facility],complaint wit h CPAP [facility] [id number],C,BP today 120/ 80 [facility] [id number],C,l abs: 01/04/21 CHOL 223, TRIG 101, HDL 48, LDL 157 o n zetia. does not want to be on statins. e ncouraged to eat salmon or tuna every other day. pt states that she will do this. will recheck lipid panel in 6 months, will determine if improved or if meds will need to be started Cayla López [id number],C,i nterrogation today 2 HVR SVT 04/08/20 2 seconds, and 01/01/2020 2 seconds. n ormal device function. battery 85% well healed scar Cayla López [employer]ITOR[employer] TECHNICIAN Telehealth - Summary of Call: Received fax from [employer] Mitali Alvarado MD Telehealth - Summary of Call: Received fax from [employer]: H er updated medication list for this problem includes: Nebivolol 5 Mg Tablet (Nebivolol) ..... Take 1 tablet by mouth every day Lisinopril 20 Mg Tablet (Lisinopril) ..... 1 tablet once a day Aspirin 81 Mg Tablet,delayed Release (dr/ec) (Aspirin) ..... Take 1 tablet once a day Lasix 20 Mg Tablet (Furosemide) ..... Once a day Mitali Alvarado MD Telehealth - Summary of Call: Received fax from [employer] Mitali Alvarado MD Telehealth - Summary of Call: Received fax from [employer]:STOP aspirrin for 5 days before each procedure Not on any NOAC or warfarin - patient could not tolerate H er updated medication list for this problem includes: Nebivolol 5 Mg Tablet (Nebivolol) ..... Take 1 tablet by mouth every day Aspirin 81 Mg Tablet,delayed Release (dr/ec) (Aspirin) ..... Take 1 tablet once a day Mitali Alvarado MD Cardiology:This visi t has been a part of the consistent, comprehensive, and ongoing management of the chronic medical condition(s) listed above for the patient. Her updated medication list for this problem includes: Rosuvastatin 10 Mg Tablet (Rosuvastatin) ..... Take 1 tablet by mouth once a day Ezetimibe 10 Mg Tablet (Ezetimibe) ..... Take one tablet by mouth every day Morris Shoemaker Cardiology: c omplaint with CPAP Morris Shoemaker Cardiology:Monitor B P at home, goal BP is <135/85 BP today: 163/90 P rior BP: 134/86 (09/01/2023) Labs Reviewed: C reat: 0.82 (02/24/2024) C hol: 178 (02/24/2024) HDL: 44 (02/24/2024) LDL: 117 (02/24/2024) T (02/24/2024) Her updated medication list for this problem includes: Nebivolol 5 Mg Tablet (Nebivolol) ..... Take 1 tablet by mouth every day Lisinopril 20 Mg Tablet (Lisinopril) ..... 1 tablet once a day Aspirin 81 Mg Tablet,delayed Release (dr/ec) (Aspirin) ..... Take 1 tablet once a day Lasix 20 Mg Tablet (Furosemide) ..... Once a day [facility] Cardiology:No AF fred nts seen on pcm check This visit has been a part of the consistent, comprehensive, and ongoing management of the chronic medical condition(s) listed above for the patient. [facility] Cardiology:This visi t has been a part of the consistent, comprehensive, and ongoing management of the chronic medical condition(s) listed above for the patient. n ormal function, no events from remote check 01/2024 [facility] Cardiology: P t denies any CP or SOB. cath 2017 C ONCLUSION: 1 . Angiographically normal coronary arteries. 2 . Normal LV size and systolic function with an EF of 60%. [facility] Electrophysiology:Pt denies any CP or SOB. [facility] Electrophysiology:normal functio n [facility] Electrophysiology: B P today: 134/86 P rior BP: 140/86 (09/02/2022) Labs Reviewed: C reat: 0.77 (11/20/2018) Her updated medication list for this problem includes: Nebivolol 5 Mg Tablet (Nebivolol) ..... Take 1 tablet by mouth every day Lisinopril 20 Mg Tablet (Lisinopril) ..... 1 tablet once a day Aspirin 81 Mg Tablet,delayed Release (dr/ec) (Aspirin) ..... Take 1 tablet once a day Lasix 20 Mg Tablet (Furosemide) ..... Once a day [facility] Electrophysiology:AT /AF Herman: 1.0%, most recently detected on [facility] Electrophysiology:LD L is uncontrolled at 137, will start Cresto 10 mg. [facility] Electrophysiology: c omplaint with CPAP [facility] Electrophysiology:en couraged lifestyle modications and weight loss for improved health. Cayla Hernandesailin KESSLER Electrophysiology:no recurrence on last remote check Cayla Hernandesailin [facility]ER Electrophysiology: B P today: 140/86 P rior BP: 120/80 (01/29/2021) Labs Reviewed: C reat: 0.77 (11/20/2018) Her updated medication list for this problem includes: Nebivolol 5 Mg Tablet (Nebivolol) ..... Take 1 tablet by mouth once a day Lisinopril 20 Mg Tablet (Lisinopril) ..... 1 tablet once a day Aspirin 81 Mg Tablet,delayed Release (dr/ec) (Aspirin) ..... Take 1 tablet once a day Lasix 20 Mg Tablet (Furosemide) ..... Once a day Cayla Hernandesailin [facility]ER Electrophysiology:2022 Chol 193, trig 107, HDL 48, LDL 126 (01/2022 LDL 123) intolerant of statins. on zetia. encouraged to cut down on fried fatty foods, sweets, cheeses, butter. increased intake of fish, ie tuna or salmon to 2-3 times per week. lipids in 1 year. Cayla Maribel [facility] Electrophysiology:la st remote 08/15/22 n o AT/AF 0% Cayla Fenailin [facility] Electrophysiology:la st 08/15/22 AT/AF Herman: 0.0% % Pacing: RA - 80.0% RV - 0.0% Transthoracic Impedance: 105.0 ohms today c ompared to baseline of 111.0 ohms Caylapeggy Hernandesailin [facility]ER Electrophysiology:no recurrence. ECHO 03/2021 1. Abnormal septal motion consistent with pacemaker or ICD implant . Normal left ventricular systolic function. Normal left ventricular size. Normal left ventricular wall thickness. There is E to A wave reversal consistent with impaired LV relaxation. E/E': 5.7. Left ventricular ejection fraction is measured at 60 %. 2. Normal right ventricular size. Normal right ventricular systolic function. Linear artifact seen in the right ventricle is suggestive of a catheter, pacer lead, or ICD lead. 3. There is non-specific thickening of the mitral valve leaflets. Mild mitral valve regurgitation. cath: 2017 normal coronaries Cayla López [facility] Electrophysiology:in terrogation today 2 HVR SVT 04/08/20 2 seconds, and 01/01/2020 2 seconds. n ormal device function. battery 85% EKG paced Cayla López [facility] Electrophysiology:complaint with CPAP Cayla López [facility] Electrophysiology:BP today 120/8 0 Cayla López [facility] Electrophysiology:la bs: 01/04/21 CHOL 223, TRIG 101, HDL 48, LDL 157 o n zetia. does not want to be on statins. e ncouraged to eat salmon or tuna every other day. pt states that she will do this. will recheck lipid panel in 6 months, will determine if improved or if meds will need to be started Cayla López [facility] Electrophysiology:in terrogation today 2 HVR SVT 04/08/20 2 seconds, and 01/01/2020 2 seconds. n ormal device function. battery 85% well healed scar Caylapeggy Hernandesailin KESSLER TeleHealth - done: n ormal device function w ell healed scar Gideon Martinez TeleHealth - done: shelley larawed importance of sodium restriction, dietary guidelines, weight loss, exercise. p cp following as well, discussed beta florentino alternatives, pt to continue on bystolic. P rior BP: 156/76 (08/22/2019) Labs Reviewed: C reat: 0.77 (11/20/2018) Her updated medication list for this problem includes: Bystolic 5 Mg Oral Tablet (Nebivolol hcl) ..... One tab. daily Aspirin Adult Low Dose 81 Mg Oral Tablet Delayed Release (Aspirin) ..... Take 1 tab once daily Lasix 20 Mg Oral Tablet (Furosemide) ..... Once daily Lisinopril 20 Mg Oral Tablet (Lisinopril) ..... One tab. daily Gideon Martinez TeleHealth - done: m ost recent LDL 184, could not tolerate statin, plan to start zetia and OTC fish oil p t getting labs drawn next month The following medications were removed from the medication list: Lipitor 80 Mg Oral Tablet (Atorvastatin calcium) ..... One tab. daily, ( okay for generic preferred statin) Her updated medication list for this problem includes: Zetia 10 Mg Oral Tablet (Ezetimibe) ..... One tab. daily. could not tolerate statin. Orders: S chedule Followup (*) A yariel Duplex Ultrasound (CPT-78814) Gideon Martinez Cardiology:Weight lo ss advised. I have discussed the benefits of a low-carb diet. Gavin Rhoades Cardiology Gavin Rhoades Cardiology: B P today: 156/76 P rior BP: 141/90 (05/24/2019) Labs Reviewed: C reat: 0.77 (11/20/2018) Gavin Rhoades Cardiology:EKG done today shows no changes. Previous cardiac cath in 2017 showed normal coronary arteries. Symptoms are somewhat atypical and the patient is complaining of increased stress. I told her that if she has increasing symptoms or new associated symptoms, I would consider going to the ER at that point. Gavin Rhoades Electrophysiology: s /p pacemaker implantation Roberto Lerner Electrophysiology: B P today: 141/90 P rior BP: 136/80 (01/25/2019) Labs Reviewed: C reat: 0.77 (11/20/2018) Roberto Lerner Electrophysiology:no rmal device function w ell healing scar o ne short episode of afib [facility] Electrophysiology: H er updated medication list for this problem includes: Atenolol 25 Mg Oral Tablet (Atenolol) ..... One tab. daily at night, stop amlodipine Aspirin Adult Low Dose 81 Mg Oral Tablet Delayed Release (Aspirin) ..... Take 1 tab once daily Roberto Yann Electrophysiology:no rmal device function w ell healing scar Orders: G lobal No Charge (CPT-19667) Roberto Lerner Electrophysiology: H er updated medication list for this problem includes: Aspirin Adult Low Dose 81 Mg Oral Tablet Delayed Release (Aspirin) ..... Take 1 tab once daily Roberto Lerner Electrophysiology: P rior BP: 138/70 (09/28/2018) Labs Reviewed: C reat: 0.77 (11/20/2018) Her updated medication list for this problem includes: Aspirin Adult Low Dose 81 Mg Oral Tablet Delayed Release (Aspirin) ..... Take 1 tab once daily Lasix 20 Mg Oral Tablet (Furosemide) ..... Once daily Lisinopril 40 Mg Oral Tablet (Lisinopril) ..... 1 tab daily Amlodipine Besylate 5 Mg Oral Tablet (Amlodipine besylate) ..... Take 1 tab once daily Roberto Lerner Electrophysiology:no rmal device function s utures removed today Roberto Lerner Cardiology follow up : 0 % AF burden on ILR remote check. R emains in sinus rhythm on EKG today. E cho doppler 08/31/18 revealed EF 60%, LVSF. Her updated medication list for this problem includes: Aspirin Adult Low Dose 81 Mg Oral Tablet Delayed Release (Aspirin) ..... Take 1 tab once daily Paco Guerra Cardiology follow up : d own 45lbs in last 10 months. patient is aiming to continue this trend Paco Guerra Cardiology follow up : s /p ILR implantation 04/2017. 09/03/18 device transmission P eriodic EGM: Sinus Bradycardia 50s 1 1 Bradycardia episodes reported, (longest duration 54 sec), episode #651 appears to have 4 sec b urst of PAT, then sinus bradycardia 30-40 bpm. Other EGM's appear to be Sinus Bradycardia 30-40 bpm. ILR to be explanted on 10/01/18 p luz elena on pacemaker implantation after November 12. she does experience tiredness and lightheadedness, but patient prefers to wait Paco Guerra Cardiology follow up : B P today: 138/70 P rior BP: 140/80 (08/31/2018) Her updated medication list for this problem includes: Aspirin Adult Low Dose 81 Mg Oral Tablet Delayed Release (Aspirin) ..... Take 1 tab once daily Lasix 20 Mg Oral Tablet (Furosemide) ..... Once daily Lisinopril 40 Mg Oral Tablet (Lisinopril) ..... 1 tab daily Amlodipine Besylate 5 Mg Oral Tablet (Amlodipine besylate) ..... Take 1 tab once daily Paco Guerra Cardiology follow up : I mplanted 04/2017. N ormal function. E xplantation planned for 10/01/18 Paco Guerra Electrophysiology: B P today: 140/80 P rior BP: 144/85 (02/23/2018) Her updated medication list for this problem includes: Aspirin Adult Low Dose 81 Mg Oral Tablet Delayed Release (Aspirin) ..... Take 1 tab once daily Lasix 20 Mg Oral Tablet (Furosemide) ..... Once daily Lisinopril 40 Mg Oral Tablet (Lisinopril) ..... 1 tab daily Amlodipine Besylate 5 Mg Oral Tablet (Amlodipine besylate) ..... Take 1 tab once daily Los Burnham Electrophysiology: I mplanted 04/2017. N ormal function. [place]ham Electrophysiology: 0 % AF burden on ILR remote check. R emains in sinus rhythm on EKG today. E cho doppler today 08/31/18, results pending. Her updated medication list for this problem includes: Aspirin Adult Low Dose 81 Mg Oral Tablet Delayed Release (Aspirin) ..... Take 1 tab once daily [place] Electrophysiology: s /p ILR implantation 04/2017. I LR remote check 02/06/18 showed sinus bradycardia, HR 40-50s. E KG today shows sinus bradycardia, HR 56bpm. Her updated medication list for this problem includes: Aspirin Adult Low Dose 81 Mg Oral Tablet Delayed Release (Aspirin) ..... Take 1 tab once daily Lisinopril 40 Mg Oral Tablet (Lisinopril) ..... 1 tab daily Amlodipine Besylate 5 Mg Oral Tablet (Amlodipine besylate) ..... Take 1 tab once daily [place] Electrophysiology:Ryley espinoza is compliant with CPAP. [place] Electrophysiology:Or ders: 9 9213 LTD. Complex (CPT-[id number]) The following medications were removed from the medication list: Flecainide Acetate 50 Mg Oral Tablet (Flecainide acetate) ..... One tablet twice a day Her updated medication list for this problem includes: Lisinopril 40 Mg Oral Tablet (Lisinopril) ..... 1 tab daily [place] Electrophysiology:s/ p ILR implantation 04/2017. I LR remote check 02/06/18 showed sinus bradycardia, HR 30s. EKG today shows sinus rhythm, HR 62 bpm. Orders: 9 9213 LTD. Complex (CPT-[id number]) The following medications were removed from the medication list: Flecainide Acetate 50 Mg Oral Tablet (Flecainide acetate) ..... One tablet twice a day Her updated medication list for this problem includes: Lisinopril 40 Mg Oral Tablet (Lisinopril) ..... 1 tab daily [place] Electrophysiology:Ryley espinoza stopped taking Flecainide, last dose 02/19/18 due to side effects including nausea and severe [place]. Orders: E KG (CPT-16311) 9 9213 LTD. Complex (CPT-64413) & #13;The following medications were removed from the medication list: Flecainide Acetate 50 Mg Oral Tablet (Flecainide acetate) ..... One tablet twice a day [place] Electrophysiology fo llow up:Patient is compliant with CPAP Mandeep te Electrophysiology fo llow up: H er updated medication list for this problem includes: Flecainide Acetate 50 Mg Oral Tablet (Flecainide acetate) ..... One tablet twice a day Lisinopril 40 Mg Oral Tablet (Lisinopril) ..... 1 tab daily Atenolol 25 Mg Oral Tablet (Atenolol) ..... One tab. daily Aspirin 81 Mg Oral Tablet (Aspirin) ..... One tab. daily Mandeep Kyte Electrophysiology fo llow up: H er updated medication list for this problem includes: Flecainide Acetate 50 Mg Oral Tablet (Flecainide acetate) ..... One tablet twice a day Atenolol 25 Mg Oral Tablet (Atenolol) ..... One tab. daily Aspirin 81 Mg Oral Tablet (Aspirin) ..... One tab. daily Mandeep Kyte Electrophysiology:Continues Lipi tor. Mitali Alvarado MD Electrophysiology:BP today: 130/80 P rior BP: 138/80 (06/02/2017) Mitali Alvarado MD Electrophysiology:Th e patient is using CPAP on a regular basis. The patient has been benefiting from therapy and should continue use. She reports that she is not sleeping well, and may need her CPAP retitrated. Will check titration study. Mitali Alvarado MD Electrophysiology:Di minished PT pulses bilaterally. Will check OBINNA's. Mitali Alvarado MD Electrophysiology:Co ntinues on atenolol. Recent cardiac cath showed no CAD. She will start flecainide 100mg BID, and will start Eliquis 5mg BID. Stop aspirin. Mitali Alvarado MD Electrophysiology: H er updated medication list for this problem includes: Lisinopril 40 Mg Oral Tablet (Lisinopril) ..... 1 tab daily Atenolol 25 Mg Oral Tablet (Atenolol) ..... One tab. daily Aspirin 81 Mg Oral Tablet (Aspirin) ..... One tab. daily Mitali Alvarado MD Electrophysiology:Sh e plans to have lap band removal in 2 weeks due to complication. Mitali Alvarado MD Electrophysiology: T he following medications were removed from the medication list: Pravastatin Sodium 20 Mg Oral Tablet (Pravastatin sodium) Her updated medication list for this problem includes: Lipitor 10 Mg Oral Tablet (Atorvastatin calcium) ..... One tab. daily Mitali Alvarado MD Electrophysiology: B P today: 138/80 P rior BP: 122/86 (04/14/2017) Mitali Alvarado MD Electrophysiology Fo [facility] up :She is scheduled for ILR implantation on 04/17/2017. E KG today showed sinus bradycardia. Her updated medication list for this problem includes: Atenolol 25 Mg Oral Tablet (Atenolol) ..... One tab. daily Aspirin 81 Mg Oral Tablet (Aspirin) ..... One tab. daily Mitali Alvarado MD Electrophysiology Fo llow up :Echo done 03/17/2017 1 . Normal left ventricular systolic function. Normal left ventricular size. Normal left ventricular wall t hickness. Normal left ventricular diastolic function. Left ventricular ejection fraction is estimated at 6 5 %. 2 . The tricuspid valve is normal in appearance and function. There is trace physiologic tricuspid valve r egurgitation. 3 . Normal aortic root size. 4 . The left atrium is normal in size. BP today: 122/86 P rior BP: 130/80 (03/17/2017) Mitali Alvarado MD Electrophysiology Fo llow up : H er updated medication list for this problem includes: Pravastatin Sodium 20 Mg Oral Tablet (Pravastatin sodium) Lipitor 10 Mg Oral Tablet (Atorvastatin calcium) ..... One tab. daily Mitali Alvarado MD Electrophysiology Fo llow up : H er updated medication list for this problem includes: Atenolol 25 Mg Oral Tablet (Atenolol) ..... One tab. daily Aspirin 81 Mg Oral Tablet (Aspirin) ..... One tab. daily Mitali Alvarado MD Electrophysiology Fo llow up : B P today: 122/86 P rior BP: 130/80 (03/17/2017) Mitali Alvarado MD Cardiology: H er updated medication list for this problem includes: Pravastatin Sodium 20 Mg Oral Tablet (Pravastatin sodium) Lipitor 10 Mg Tabs (Atorvastatin calcium) ..... One tab. daily Mitali Alvarado MD Cardiology: T he following medications were removed from the medication list: Triamterene-hctz 37.5-25 Mg Tabs (Triamterene-hctz) ..... One tab. daily Her updated medication list for this problem includes: Hydrochlorothiazide 25 Mg Oral Tablet (Hydrochlorothiazide) ..... 1/2 tab daily Atenolol 25 Mg Tabs (Atenolol) ..... One tab. daily Aspirin 81 Mg Tabs (Aspirin) ..... One tab. daily Mitali Alvarado MD Cardiology: H er updated medication list for this problem includes: Atenolol 25 Mg Tabs (Atenolol) ..... One tab. daily Aspirin 81 Mg Tabs (Aspirin) ..... One tab. daily Mitali Alvarado MD office visit: H is updated medication list for this problem includes: Atenolol 25 Mg Tabs (Atenolol) ..... One tab. daily Triamterene-hctz 37.5-25 Mg Tabs (Triamterene-hctz) ..... One tab. daily Aspirin 81 Mg Tabs (Aspirin) ..... One tab. daily David Hopkins MD office visit: H is updated medication list for this problem includes: Lipitor 10 Mg Tabs (Atorvastatin calcium) ..... One tab. daily David Hopkins MD office visit: H is updated medication list for this problem includes: Atenolol 25 Mg Tabs (Atenolol) ..... One tab. daily Aspirin 81 Mg Tabs (Aspirin) ..... One tab. daily David Hopkins MD Date Name NMR LipoProfile (Lab terrell) COMPREHENSIVE METABO LIC PANEL, W/EGFR CRP, high sensitivit y LIPID PANEL COMPREHENSIVE METABO LIC PANEL, W/EGFR Complete Echo LIPID PANEL Aorta Duplex Ultraso und Complete Echo Aorta Duplex Ultraso und LIPID PANEL COMPREHENSIVE METABO LIC PANEL, W/EGFR Complete Echo PROTHROMBIN TIME WIT H INR URINALYSIS, REFLEX CBC (INCLUDES DIFF/P LT) BASIC METABOLIC PANE L W/EGFR Pacemaker Dual Chamb er - [facility] URINALYSIS, COMPLETE W/REFLEX TO CULTURE Partial Thromboplast in Time, Activated PROTHROMBIN TIME WIT H INR CBC (INCLUDES DIFF/P LT) COMPREHENSIVE METABO LIC PANEL, W/EGFR Sleep Study Titratio n Arterial Duplex Bi-L ower EX Complete Echo Mobile Cardiac Tele STR - Adenosine Preop clearance, phn /internet/emr >5min [facility] MD Time: >20m in/7days HISTORY OF PROCEDURES Procedure Date Procedure Name Provider Procedure Notes S tatus Complex e/m visit ad d on Mitali Alvarado MD completed EKG Mitali arguello MD completed EKG Mitali arguello MD completed Schedule Followup Mitali carolina MD [address] ALVARADO completed EKG Mitali arguello MD completed EKG Mitali arguello MD completed Schedule Followup Mitali carolina MD 6mo in person SK completed Schedule Followup Mitali carolina MD completed EKG Julio Cesar Christopher MD completed EKG Mitali arguello MD completed ICM Interrogation, Remote (Prof) Mitali Alvarado MD INTERROGATION EVAL REMOTE </30 D CV MNTR SYS completed ICM Interrogation, Remote (Tech) Mitali Alvarado MD INTERROGATION EVAL REMOTE </30 D TECH REVIEW completed EKG Mitali arguello MD completed ICM Interrogation, Remote (Prof) Mitali Alvarado MD INTERROGATION EVAL REMOTE </30 D CV MNTR SYS completed ICM Interrogation, Remote (Tech) Mitali Alvarado MD INTERROGATION EVAL REMOTE </30 D TECH REVIEW completed Loop Recorder Interrogation, Remote Mitali Alvarado MD INTERROGATION EVALUATION REMOTE </30 D ILR SYS completed ICM Interrogation, Remote (Tech) Mitali Alvarado MD INTERROGATION EVAL REMOTE </30 D TECH REVIEW completed Loop Recorder Interrogation, Remote Saulius Kalvaitis MD INTERROGATION EVALUATION REMOTE </30 D ILR SYS completed ICM Interrogation, Remote (Tech) Saulius Kalvaitis MD INTERROGATION EVAL REMOTE </30 D TECH REVIEW completed EKG ulius Michelle arguello MD completed Loop Recorder Interrogation, Remote Saulius Kalvaitis MD INTERROGATION EVALUATION REMOTE </30 D ILR SYS completed ICM Interrogation, Remote (Tech) Saulius Kalvaitis MD INTERROGATION EVAL REMOTE </30 D TECH REVIEW completed Schedule Followup ulius Kelle carolina MD in 1 yr completed EKG ulius Kalapple arguello MD completed Loop Recorder Interrogation, Remote Saulius Kalvaitis MD INTERROGATION EVALUATION REMOTE </30 D ILR SYS completed ICM Interrogation, Remote (Tech) Saulius Kalvaitis MD INTERROGATION EVAL REMOTE </30 D TECH REVIEW completed Loop Recorder Interrogation, Remote Saulius Kalvaitis MD INTERROGATION EVALUATION REMOTE </30 D ILR SYS completed ICM Interrogation, Remote (Tech) Saulius Kalvaitis MD INTERROGATION EVAL REMOTE </30 D TECH REVIEW completed ICM Interrogation, Remote (Prof) Saulius Kalvaitis MD INTERROGATION EVAL REMOTE </30 D CV MNTR SYS completed ICM Interrogation, Remote (Tech) Saulius Kalvaitis MD INTERROGATION EVAL REMOTE </30 D TECH REVIEW completed Loop Recorder Interrogation, Remote Saulius Kalvaitis MD INTERROGATION EVALUATION REMOTE </30 D ILR SYS completed ICM Interrogation, Remote (Tech) Saulius Kalvaitis MD INTERROGATION EVAL REMOTE </30 D TECH REVIEW completed Loop Recorder Interrogation, Remote Saulius Kalvaitis MD INTERROGATION EVALUATION REMOTE </30 D ILR SYS completed ICM Interrogation, Remote (Tech) Saulius Kalvaitis MD INTERROGATION EVAL REMOTE </30 D TECH REVIEW completed EKG ulius Michelle arguello MD completed Candelario arguello MD completed Candelario Connor MD complete d Loop Recorder Interrogation, Remote Saulius Kalvaitis MD INTERROGATION EVALUATION REMOTE </30 D ILR SYS completed ICM Interrogation, Remote (Tech) Saulius Kalvaitis MD INTERROGATION EVAL REMOTE </30 D TECH REVIEW completed Loop Recorder Interrogation, Remote Saulius Kalvaitis MD INTERROGATION EVALUATION REMOTE </30 D ILR SYS completed ICM Interrogation, Remote (Tech) Saulius Kalvaitis MD INTERROGATION EVAL REMOTE </30 D TECH REVIEW completed Loop Recorder Interrogation, Remote Saulius Kalvaitis MD INTERROGATION EVALUATION REMOTE </30 D ILR SYS completed ICM Interrogation, Remote (Tech) Saulius Kalvaitis MD INTERROGATION EVAL REMOTE </30 D TECH REVIEW completed Schedule Followup ulius Kelle carolina MD In 6 months completed EKG Mitali arguello MD completed Loop Recorder Interrogation, Remote Saulius Kalvaitis MD INTERROGATION EVALUATION REMOTE </30 D ILR SYS completed ICM Interrogation, Remote (Tech) Saulius Kalvaitis MD INTERROGATION EVAL REMOTE </30 D TECH REVIEW completed Loop Recorder Interrogation, Remote Saulius Kalvaitis MD INTERROGATION EVALUATION REMOTE </30 D ILR SYS completed ICM Interrogation, Remote (Tech) Saulius Kalvaitis MD INTERROGATION EVAL REMOTE </30 D TECH REVIEW completed Loop Recorder Interrogation, Remote Saulius Kalvaitis MD INTERROGATION EVALUATION REMOTE </30 D ILR SYS completed ICM Interrogation, Remote (Tech) Saulius Kalvaitis MD INTERROGATION EVAL REMOTE </30 D TECH REVIEW completed Loop Recorder Interrogation, Remote Saulius Kalvaitis MD INTERROGATION EVALUATION REMOTE </30 D ILR SYS completed ICM Interrogation, Remote (Tech) ulius Duenasitis INTERROGATION EVAL REMOTE </30 D TECH REVIEW completed Loop Recorder Interrogation, Remote ulius Jenny RAMEY INTERROGATION EVALUATION REMOTE </30 D ILR SYS completed ICM Interrogation, Remote (Tech) ulius Jenny RAMEY INTERROGATION EVAL REMOTE </30 D TECH REVIEW completed EKG ulius Michelle arguello MD completed SNOMED-CT: [id number] Current Medications Documented Saulius Kalnanyitis completed Loop Recorder Interrogation, Remote Mitali Alvarado MD INTERROGATION EVALUATION REMOTE </30 D ILR SYS completed ICM Interrogation, Remote (Tech) Saulius Kalnanyitis INTERROGATION EVAL REMOTE </30 D TECH REVIEW completed EKG Mitali arguello MD completed SNOMED-CT: [id number] Current Medications Documented Saulius Kalnanyitis completed EKG ulius Michelle arguello MD completed SNOMED-CT: [id number] Current Medications Documented Saulius Kalnanyitis completed
--- OUTSIDE RECORDS SUMMARY | 2024-06-07 05:36 | XMS_ITS | Clinical Summary ---
Author Organization [facility] Address [address] [place] [address]. [place], [place] [address] [place] [id number] Care Team Providers Care Yeast Culture Developer Name Role Phone AristidesdavidMireya NP Primary Care Provider [phone] Allergies Active Allergy Reactions Criticality Noted Date Comments Moxifloxacin Rash Low 06/04/2024 Povidone Iodine Rash Low 06/04/2024 Iodine Rash Low 06/04/2024 Cyclobenzaprine Rash Low 06/04/2024 Hydrocodone Rash Low 06/04/2024 Levofloxacin Rash Low 06/04/2024 Penicillin G Rash Low 06/04/2024 Sulfa Antibiotics Rash Low 06/04/2024 Medications aspirin 81 MG chewable tablet Chew 1 tablet (81 mg total) by mouth daily. Active biotin 300 MCG Tab Take 1 tablet (300 mcg total) by mouth daily. 60mcg once a day. Active Vitamin D3 (VITAMIN D) 50 mcg tablet Take 1 tablet (50 mcg total) by mouth daily. Active lisinopril (PRINIVIL) 20 MG tablet Take 1 tablet (20 mg total) by mouth daily. Active montelukast (SINGULAIR) 10 MG tablet Take 1 tablet (10 mg total) by mouth nightly at bedtime. Active omeprazole EC (PRILOSEC OTC) 20 MG tablet Take 1 tablet (20 mg total) by mouth daily. Active escitalopram (LEXAPRO) 10 MG tablet Take 1 tablet (10 mg total) by mouth daily. Active probiotic (FLORAJEN3) Cap capsule Take 1 capsule by mouth 3 (three) times daily with meals. Active fluticasone propionate (FLONASE) 50 MCG/ACT nasal spray 1 spray by Nasal route daily. Active furosemide (LASIX) 20 MG tablet Take 1 tablet (20 mg total) by mouth daily. Active nebivolol (BYSTOLIC) 5 MG tablet Take 1 tablet (5 mg total) by mouth daily. Active ezetimibe (ZETIA) 10 MG tablet Take 1 tablet (10 mg total) by mouth daily. Active cyanocobalamin (B-12) 1000 MCG/ML injection Inject 2 mLs (2,000 mcg total) into the skin once a week. Active Social History Tobacco Use Types Packs/Day Years Used Date Smoking Tobacco: Former Cigarettes 1974 Smokeless Tobacco: Never Tobacco Cessation:Counseling Given: Not Answered Alcohol Use Standard Drinks/Week Comments Never 0 (1 standard drink = 0.6 oz pur e alcohol) Comments No Sex and Gender Information Value Date Recorded Sex Assigned at Not on file Legal Sex Female 10:34 AM FLOOR LAYER Gender Identity Not on file Sexual Orientation Not on file Last Filed Vital Signs Vital Sign Reading Time Taken Comments Blood Pressure - - Pulse - - Temperature - - Respiratory Rate - - Oxygen Saturation - - Inhaled Oxygen Concentration - - Weight 158.8 kg (350 lb) 06/04/2024 11:18 AM FLOOR LAYER Height 167.6 cm (5' 6) 06/04/2024 11:18 AM FLOOR LAYER Body Mass Index 56.49 06/04/2024 11:18 AM FLOOR LAYER Plan of Treatment Upcoming Encounters Date Type Department Care Team (Late st Contact Info) Description 06/10/2024 10:34 AM FLOOR LAYER Hospital Encounter [facility] [address] [place] [address] Sharif cMarthur MD [address] [facility] [address] [place] [address] 06/10/2024 10:34 AM FLOOR LAYER Anesthesia Event [facility] [address] [place] [address] Monique Kessler CRNA [address] [facility] [place] [address] 06/10/2024 10:34 AM FLOOR LAYER - 06/10/2024 11:15 AM FLOOR LAYER Surgery [facility] [address] [place] [address] Sharif Mcarthur MD [address] [place] [address] [place] [address] CATARACT REMOVAL WITH IOL IMPLANT Scheduled Procedures Name Priority Associated Diagnoses Date/Ti me CATARACT REMOVAL WITH IOL IMPLANT H25.12 06/10/2024 10:34 AM FLOOR LAYER Health Maintenance Due Date Last Done Comments Colorectal Cancer Screening Colonoscopy (10 Years) 1953 Hepatitis C 12/13/1971 Mammogram Screening 1993 Zoster Vaccines (1 of 2) 12/13/2003 RSV Immunization or 60+ Years (1 - Risk 60-74 years 1-dose series) 2013 Annual Medicare Wellness Visit 2018 Dexa Scan (General) 2018 COVID-19 Vaccine (4 - 2023- season) 2024 05/04/2021, 07/21/2020, 06/18/2020 DTaP, Tdap and Td Vaccines (3 - Td or Tdap) 09/19/2024 09/19/2014, 03/27/2012 Pneumococcal Vaccine: 65+ Years Completed 02/01/2021, 01/27/2020 Influenza Adult Completed 05/17/2024, 03/15, 02/03/2021, Additional history exists Meningococcal B Vaccine Aged Out No l onger eligible based on patient's age to complete this topic Meningococcal Vaccine Aged Out No artemio jayjay eligible based on patient's age to complete this topic RSV Immunizations Under 20 Months Aged Out No longer eligible based on patient's age to complete this topic Insurance MEDICARE [facility] Care Teams Yeast Culture Developer Relationship Specialty Start Date End Date Mireya Cohn NP [address] [place] [address] PCP - General NURSE PRACTITIONER 06/03/24
--- OUTSIDE RECORDS SUMMARY | 2024-06-07 05:36 | XMS_ITS | Patient Health Summary ---
Author Organization [facility] Address [address] [place] [address] Care Team Providers Care Bill Checker Name Role Phone Cheryl Adams RN Unavailable [phone] Mireya Cohn APRN-CUSTOMS INSPECTOR Primary Care Provider + Note from [facility],non-owned Affiliates and Associated Physician Practices is amultiple site organization consisting of ambulatory clinics and hospital sitesin [place], [place], [place] and [place]. This disclosure is being madepursuant to the Care Everywhere program and may not contain all information available regarding this patient. Last updated 18.[facility] Allergies * Moxifloxacin(Rash) -Low Criticality * Cyclobenzaprine(Rash) -Low Criticality * Povidone Iodine(Rash) -Medium Criticality * Levofloxacin(Rash) -Low Criticality * Penicillins(Rash) -Low Criticality * Sulfa Drugs(Rash) -Low Criticality * Hydrocodone-Acetaminophen(Rash) -Low Criticality Medications * Be aware that medications may not be up to date on this document. Alwaysverify current medications with the patient. * aspirin 81 MG tablet Take 81 mg by mouth once daily. * Ergocalciferol (VITAMIN D PO) Take by mouth. * montelukast (SINGULAIR) 10 MG tablet(Started 05/27/2014) Take 10 mg by mouth once daily * Biotin 800 MCG TABS Take 800 mcg by mouth once daily Reasons: Hair Discoloration, Thinning of Fingernails or Toenails * acetaminophen (TYLENOL) 325 MG tablet(Started 01/03/2015) Take 2 Tabs by mouth every 4 hours as needed Maximum allowable Acetaminophen amount = 4 Grams (4000mg) / 24 hours. * atenolol (TENORMIN) 25 MG tablet(Started 01/03/2015) Take 0.5 Tabs by mouth 2 times daily * omeprazole (PRILOSEC) 40 MG capsule(Started 01/03/2015) Take 1 Cap by mouth daily before breakfast 1 refill left * lisinopril (PRINIVIL; ZESTRIL) 40 MG tablet(Started 01/12/2015) 1 Tab once daily * amLODIPine (NORVASC) 5 MG tablet Take 10 mg by mouth once daily * escitalopram (LEXAPRO) 5 MG tablet Take 5 mg by mouth once daily * cyanocobalamin (VITAMIN B-12) 100 MCG tablet Take 100 mcg by mouth once daily * fluticasone propionate (FLONASE) 50 MCG/ACT nasal spray [place] 2 sprays into each nostril once daily * Probiotic Product (PROBIOTIC ADVANCED PO) Take by mouth once daily * raNITIdine (ZANTAC) 150 MG tablet(Started 03/27/2017) * furosemide (LASIX) 20 MG tablet(Started 05/26/2017) Active Problems Problem Noted Date Diagnosed Date Complication of gastric banding 06/13/2017 Fitting and adjustment of gastric lap band 03/29 Chest pain 01/02/2015 Abdominal pain, epigastric 01/02/2015 Social History Tobacco Use Types Packs/Day Years Used Date Smoking Tobacco: Former Cigarettes Q uit: 1980 Smokeless Tobacco: Never Tobacco Cessation:Counseling Given: No Alcohol Use Standard Drinks/Week Comments No 0 (1 standard drink = 0.6 oz pur e alcohol) Sex and Gender Information Value Date Recorded Sex Assigned at Not on file Gender Identity Not on file Sexual Orientation Not on file Last Filed Vital Signs Vital Sign Reading Time Taken Comments Blood Pressure 144/83 06/29/2017 12:07 PM DYNAMICS AX DEVELOPER Pulse 57 06/29/2017 12:07 PM DYNAMICS AX DEVELOPER Temperature 36 ??C (96.8 ??F) 06/29/2017 12: 07 PM DYNAMICS AX DEVELOPER Respiratory Rate 18 06/14/2017 7:46 AM DYNAMICS AX DEVELOPER Oxygen Saturation 99% 06/14/2017 7:46 AM DYNAMICS AX DEVELOPER Inhaled Oxygen Concentration - - Weight 140.7 kg (310 lb 3.2 oz) 09/19/2017 2:56 PM CDT Height 167.6 cm (5' 6) 09/19/2017 2:56 PM CDT Body Mass Index 50.07 09/19/2017 2:56 PM CDT Procedures * DERMATOPATHOLOGY(Performed 12/31/2018) * FL FLUORO UPPER GI TRACT + KUB(Performed 09/19/2017) Performed for Morbid obesity due to excess calories (HCC), Gastroesophageal reflux disease, esophagitis presence not specified * CARDIAC RHYTHM STRIP ORDER(Performed 06/16/2017) * ENDOTRACHEAL TUBE NOTE(Performed 06/13/2017) * LAPAROSCOPIC REMOVAL/REPLACEMENT GASTRIC BAND(Performed 06/13/2017) * EKG 12-LEAD(Performed 06/13/2017) Performed for Preoperative examination * BASIC METABOLIC PANEL (CALCIUM TOTAL)(Performed 06/13/2017) Performed for Preoperative examination * ESOPHAGOSCOPY/ESOPHAGOGASTRODUODENOSCOPY WITH DILATION(Performed 05/01/2017) * FL UGI SERIES(Performed 04/18/2017) Performed for Dysphagia, unspecified type, Hx of laparoscopic gastric banding * FL LAPBAND ADJUST VIA PORT(Performed 12/22/2015) Performed for Encounter for adjustment of gastric lap band * DERMATOPATHOLOGY(Performed 03/05/2015) * CARDIAC RHYTHM STRIP ORDER(Performed 01/10/2015) * COMPREHENSIVE METABOLIC PANEL(Performed 01/08/2015) * CBC W AUTO DIFFERENTIAL(Performed 01/08/2015) * PATHOLOGY TISSUE EXAM (STL)(Performed 01/06/2015) Performed for Other unknown and unspecified cause of morbidity or mortality [799.9] * LAPAROSCOPIC CHOLECYSTECTOMY(Performed 01/06/2015) * NM HEPATOBILIARY W EF(Performed 01/05/2015) Performed for Epigastric abdominal pain * US ABDOMEN LIMITED(Performed 01/03/2015) Performed for Epigastric abdominal pain * TSH REFLEX FREE T4(Performed 01/03/2015) Performed for Chest pain * LIPID PROFILE(Performed 01/03/2015) * BASIC METABOLIC PANEL (CALCIUM TOTAL)(Performed 01/03/2015) * CBC W AUTO DIFFERENTIAL(Performed 01/03/2015) * ESOPHAGOGASTRODUODENOSCOPY (EGD) DIAGNOSTIC(Performed 01/02/2015) * TROPONIN I(Performed 01/02/2015) * NM MYOCARD PERF REST STRESS(Performed 01/02/2015) Performed for Chest pain, unspecified chest pain type, Chest pain * STRESS TEST LEXISCAN (NUCLEAR)(Performed 01/02/2015) Performed for Chest pain, unspecified chest pain type, Chest pain * PATHOLOGY TISSUE EXAM (STL)(Performed 01/02/2015) Performed for Other unknown and unspecified cause of morbidity or mortality [799.9] * EGD(Performed 01/02/2015) * TROPONIN I(Performed 01/02/2015) * LIPASE BLOOD(Performed 01/02/2015) * COMPREHENSIVE METABOLIC PANEL(Performed 01/02/2015) * CBC W AUTO DIFFERENTIAL(Performed 01/02/2015) * TROPONIN I(Performed 01/02/2015) * XR CHEST 2VW(Performed 01/02/2015) Performed for Chest pain, unspecified chest pain type * OXYGEN(Performed 01/02/2015) * EKG 12-LEAD(Performed 01/02/2015) Performed for Chest pain, unspecified chest pain type * EMG WITH NERVE CONDUCTION STUDY(Performed 03/18/2014) * MRI LUMBAR SPINE WO CONTRAST(Performed 12/09/2013) * FL LAPBAND ADJUST VIA PORT(Performed 07/28/2011) Performed for Morbid obesity (HCC) * FL LAPBAND ADJUST VIA PORT(Performed 05/18/2010) Performed for Morbid obesity (HCC) * FL LAPBAND ADJUST VIA PORT(Performed 08/27/2009) Performed for Morbid Obesity (HCC) * FL LAPBAND ADJUST VIA PORT(Performed 03/19/2009) Performed for Morbid Obesity (HCC) * MRIO BRAIN WO CONT(Performed 09/18/2008) Performed for Headache * FL LAPBAND ADJUST VIA PORT(Performed 09/11/2008) Performed for Morbid Obesity (HCC) * FL LAPBAND ADJUST VIA PORT(Performed 07/24/2008) Performed for Morbid Obesity (HCC) * FL LAPBAND ADJUST VIA PORT(Performed 06/19/2008) Performed for Morbid Obesity (HCC) * FL LAPBAND ADJUST VIA PORT(Performed 05/22/2008) Performed for Morbid Obesity (HCC) * FL LAPBAND ADJUST VIA PORT(Performed 04/03/2008) Performed for Morbid Obesity (HCC) Results * DERMATOPATHOLOGY (12/31/2018 12:00 AM CDT) Only the most recent of2 resultswithin the time period is included. Case Report Dermatopathology Report ? Case: [id number] ? Authorizing Provider: ??Hope Gonzáles MD ? Collected: ? 12/31/2018 12:00 AM ? Ordering Location: ? [facility] D[facility] ?Received: ?01/01/2019 07:15 AM ? Pathologist: ? Val Willoughby MD ? Specimen: ?Skin, right back ? 9 12:01 PM CDT DERMATOPATHOLOGY LABORATORY Final Diagnosis Specimen A. SKIN, right back: COMPOUND MELANOCYTIC NEVUS (D22.5) 9 12:01 PM CDT DERMATOPATHOLOGY LABORATORY Clinical History Nevus, irrit. 9 12:01 PM CDT DERMATOPATHOLOGY LABORATORY Gross Description Specimen A: Received is one formalin filled container labeled with the patient's name and designated right back. The specimen consists of a shave measuring [id number]. Jar 0. 9 12:01 PM CDT DERMATOPATHOLOGY LABORATORY Microscopic Description Specimen A. SKIN, right back: There are nests of melanocytes at the dermal-epidermal junction and within the dermis. 9 12:01 PM CDT DERMATOPATHOLOGY LABORATORY Disclaimer An external and internal positive and negative controls are appropriate for the histochemical, immunohistochemical and immunofluorescence stain(s) in this case (if any), except where stated explicitly. The performance characteristics of the stain(s) cited in this report were developed and its performance characteristic determined by the Dermatopathology Laboratory at [facility], directed by Dr. Elver Duggan. These tests need not be, and therefore are not, approved by the [place] Food and Drug Administration. The tests are used for clinical purposes. Billing Codes Specimen Charges Stain Charges 66446 1 9 12:01 PM CDT DERMATOPATHOLOGY LABORATORY Embedded Images 9 12:01 PM CDT DERMATOPATHOLOGY LABORATORY Pathology/Cytolog y TISSUE SPECIMEN FROM SKIN / Unknown 12/31/2018 01/01/2019 7:15 AM CDT Hope Gonzáles MD LAB - PATHOLOGY/CYT OLOGY ORDERABLES DERMATOPATHOLOGY LABORATORY [facility] - Department of Dermatology [address] [place] [address], 5th Floor Lab B [address] [phone] * FL FLUORO UPPER GI TRACT + KUB (09/19/2017 11:14 AM CDT) Anatomical Region Laterality Modality Abdomen Radiographic Latasha ging 09/19/2017 12:1 2 PM CDT Impressions 09/19/2017 4:47 PM CDT UNREMARKABLE EXAMINATION. Edited by Pooja Acosta on 09/19/2017 12:42 PM Narrative 09/19/2017 4:47 PM CDT FLUOROSCOPIC UPPER GI SERIES WITH DELAYED KUB CLINICAL INDICATION: Morbid obesity. Episodic abdominal pain. FINDINGS: The total fluoroscopy time was 1.3 minutes. 1 fluoroscopic image was obtained. Cine radiography was performed. The esophagus is normal in contour and caliber. There are no mucosal lesions within the esophagus. The stomach is normal in shape and morphology. The gastric fold pattern is within normal limits. There is prompt emptying into duodenum. Procedure Note Julian Rader MD - 09/19/2017 FLUOROSCOPIC UPPER GI SERIES WITH DELAYED KUB CLINICAL INDICATION: Morbid obesity. Episodic abdominal pain. FINDINGS: The total fluoroscopy time was 1.3 minutes. 1 fluoroscopic image was obtained. Cine radiography was performed. The esophagus is normal in contour and caliber. There are no mucosal lesions within the esophagus. The stomach is normal in shape and morphology. The gastric fold pattern is within normal limits. There is prompt emptying into duodenum. IMPRESSION UNREMARKABLE EXAMINATION. Edited by Pooja Acosta on 09/19/2017 12:42 PM Dougie Figueroa MD FLUOROSCOPY ORDERABL ES * CARDIAC RHYTHM STRIP ORDER (06/16/2017 9:45 PM DYNAMICS AX DEVELOPER) Only the most recent of2 resultswithin the time period is included. Narrative 06/16/2017 9:45 PM DYNAMICS AX DEVELOPER Ordered by an unspecified provider. Scanned Document CARDIAC SERVICES ORD ERABLES * EKG 12-LEAD (06/13/2017 7:10 AM DYNAMICS AX DEVELOPER) Only the most recent of2 resultswithin the time period is included. Ventricular Rate 59 BPM [facility] Atrial Rate 59 BPM [facility] P-R Interval 146 ms [facility] QRS Duration ms 92 ms [facility] Q-T Interval ms 432 ms [facility] QTC Calculation (Bezet) 427 ms [facility] Calculated P [place] 27 degrees [facility] Calculated R [place] -34 degrees [facility] Calculated T [place] 30 degrees [facility] Interpretation EKG Sinus bradycardia Left axis deviation Cannot rule out Anterior infarct , age undetermined Abnormal ECG Confirmed by DON JARAMILLO MD ([id number]) on 06/13/2017 10:32:35 PM [facility] 06/13/2017 7:10 AM DYNAMICS AX DEVELOPER 06/13/2017 10:32 PM DYNAMICS AX DEVELOPER Hope Vincent DO ECG ORDERABLES [facility] * (ABNORMAL) BASIC METABOLIC PANEL (CALCIUM TOTAL) (06/13/2017 6:17 AM DYNAMICS AX DEVELOPER) Only the most recent of2 resultswithin the time period is included. Glucose 98 74 - 106 mg/dL 06/13/2017 6:58 AM DYNAMICS AX DEVELOPER [facility] Sodium 137 136 - 145 mmol/L 06/13/2017 6:58 AM [facility] Potassium 3.7 3.5 - 5.1 mmol/L 06/13/2017 6:58 AM [facility] Chloride 105 98 - 107 mmol/L 06/13/2017 6:58 AM [facility] CO2 28 22 - 31 mmol/L 06/13/2017 6:58 AM [facility] Calcium 8.8 8.5 - 10.1 mg/dL 06/13/2017 6:58 AM [facility] Anion Gap 4(L) 8 - 16 mmol/L 06/13/2017 6:58 AM [facility] BUN 14 7 - 21 mg/dL 06/13/2017 6:58 AM [facility] Creatinine 0.76 0.50 - 1.30 mg/dL 06/13/2017 6:58 AM [facility] eGFR by MDRD >60 >60 mL/min/1.7 3m2 06/13/2017 6:58 AM [facility] eGFR by MDRD >60 >60 mL/min/1.7 3m2 06/13/2017 6:58 AM [facility] Blood BLOOD SPECIMEN / Unknown Venipuncture / Unknown 06/13/2017 6:17 AM DYNAMICS AX DEVELOPER 06/13/2017 6:33 AM [facility] Hope Vincent DO LAB - CHEMISTRY [place] [facility] [address] [id number] * FL FLUORO UGI SERIES (04/18/2017 8:21 AM DYNAMICS AX DEVELOPER) Anatomical Region Laterality Modality Abdomen Radio Fluoroscop y 04/18/2017 8:30 AM DYNAMICS AX DEVELOPER Impressions 04/18/2017 8:33 AM DYNAMICS AX DEVELOPER Laparoscopic band projects in similar position to 2016. GE junction. High-grade spontaneous gastroesophageal reflux with minor esophageal tertiary contractions/dysmotility. No fluoroscopic evidence of ulceration. Endoscopy has increased sensitivity for subtle mucosal lesions. Narrative 04/18/2017 8:33 AM DYNAMICS AX DEVELOPER Upper GI fluoroscopy, double-contrast. COMPARISON: 12/22/2015 fluoroscopy HISTORY: Dysphagia and burning sensation History from RIS: Dysphagia, unspecified TECHNIQUE: Patient ingested effervescent crystals. Fluoroscopic spot and cine images were obtained during the procedure. ??Patient subsequently drank thick barium in the upright position. Patient was placed supine and maneuvered to coat the stomach. Subsequently, the patient drank thin barium in the right side down decubitus position. Reflux inducing maneuvers including water siphon test and Valsalva were performed. FINDINGS: Sea Shell Gatherer image demonstrates a laparoscopic band projecting near the GE junction in position similar to 2016. Primary swallowing mechanisms are normal. Primary and secondary esophageal motility was generally normal although on several occasions there was apparent delay in the normal stripping motion. Tertiary contractions were occasionally seen. There is no esophageal stenosis, ulceration or diverticulum identified. The stomach is without appreciable mass or ulceration. Below the level of the gastric band, the stomach appears normally distensible and empties to the proximal small bowel. There is spontaneous high-grade gastroesophageal reflux to the level of the thoracic inlet Fluoroscopy time: 3-4 minutes Procedure Note Juvenal Cox MD - 04/18/2017 Upper GI fluoroscopy, double-contrast. COMPARISON: 12/22/2015 fluoroscopy HISTORY: Dysphagia and burning sensation History from RIS: Dysphagia, unspecified TECHNIQUE: Patient ingested effervescent crystals. Fluoroscopic spot and cine images were obtained during the procedure. Patient subsequently drank thick barium in the upright position. Patient was placed supine and maneuvered to coat the stomach. Subsequently, the patient drank thin barium in the right side down decubitus position. Reflux inducing maneuvers including water siphon test and Valsalva were performed. FINDINGS: Sea Shell Gatherer image demonstrates a laparoscopic band projecting near the GE junction in position similar to 2016. Primary swallowing mechanisms are normal. Primary and secondary esophageal motility was generally normal although on several occasions there was apparent delay in the normal stripping motion. Tertiary contractions were occasionally seen. There is no esophageal stenosis, ulceration or diverticulum identified. The stomach is without appreciable mass or ulceration. Below the level of the gastric band, the stomach appears normally distensible and empties to the proximal small bowel. There is spontaneous high-grade gastroesophageal reflux to the level of the thoracic inlet Fluoroscopy time: 3-4 minutes IMPRESSION Laparoscopic band projects in similar position to 2016. GE junction. High-grade spontaneous gastroesophageal reflux with minor esophageal tertiary contractions/dysmotility. No fluoroscopic evidence of ulceration. Endoscopy has increased sensitivity for subtle mucosal lesions. Dougie Figueroa MD FLUOROSCOPY ORDERABL ES * FL LAP BAND ADJUST VIA PORT (12/22/2015 12:30 PM CDT) Only the most recent of10 resultswithin the time period is included. Anatomical Region Laterality Modality Radiographic Latasha ging 12/22/2015 1:17 PM CDT Narrative 12/22/2015 1:54 PM CDT Fluoroscopy was provided. A radiologist was not present. Edited by Loida Merrill on 12/22/2015 1:18 PM Procedure Note Cm Jaimes MD - 12/22/2015 Fluoroscopy was provided. A radiologist was not present. Edited by Loida Merrill on 12/22/2015 1:18 PM Carmen Minaya DENTAL LABORATORY TECHNICIAN APPRENTICE-CUSTOMS INSPECTOR FLUOROSCOPY ORDERABLES * CBC W AUTO DIFFERENTIAL (01/08/2015 9:40 AM CDT) Only the most recent of3 resultswithin the time period is included. WBC 6.3 4.4 - 10.7 x10^9/L 01/08/2015 9:47 AM CDT [facility] WBC Corrected x10^9/L 01/08/2015 9:47 AM CDT [facility] RBC 4.22 3.80 - 5.20 x10^12/L 01/08/2015 9:47 AM CDT [facility] Hemoglobin 13.3 12.0 - 15.6 gm/dL 01/08/2015 9:47 AM CDT [facility] Hematocrit 40.1 35.9 - 45.5 % 01/08/2015 9:47 AM CDT [facility] MCV 95.0 80.7 - 98.3 fl 01/08/2015 9:47 AM CDT [facility] MCH 31.5 26.7 - 34.0 pg 01/08/2015 9:47 AM CDT [facility] MCHC 33.2 30.8 - 35.9 gm/dL 01/08/2015 9:47 AM CDT [facility] Platelet Count 207 153 - 416 x10^9/L 01/08/2015 9:47 AM CDT [facility] RDW-CV 12.6 12.1 - 14.9 % 01/08/2015 9:47 AM CDT [facility] MPV 10.4 9.4 - 12.9 fl 01/08/2015 9:47 AM CDT [facility] Neutrophils % 62.3 44.0 - 73.0 % 01/08/2015 9:47 AM CDT [facility] Lymphocytes % 29.1 20.0 - 43.0 % 01/08/2015 9:47 AM CDT [facility] Monocytes % 7.5 5.0 - 13.0 % 01/08/2015 9:47 AM CDT [facility] Eosinophils % 0.6 0.0 - 6.0 % 01/08/2015 9:47 AM CDT [facility] Basophils % 0.2 0.0 - 2.0 % 01/08/2015 9:47 AM CDT [facility] Immature Granulocytes 0.3 0 - 1 % 01/08/2015 9:47 AM CDT [facility] Neutrophil Absolute 3.92 2.01 - 7.14 x10^9/L 01/08/2015 9:47 AM CDT [facility] Lymphocytes Absolute 1.83 1.07 - 3.94 x10^9/L 01/08/2015 9:47 AM CDT [facility] Monocytes Absolute 0.47 0.26 - 1.07 x10^9/L 01/08/2015 9:47 AM CDT [facility] Eosinophils Absolute 0.04 0 - 0.47 x10^9/L 01/08/2015 9:47 AM CDT [facility] Basophils Absolute 0.01 0 - 0.08 x10^9/L 01/08/2015 9:47 AM CDT [facility] Immature Granulocytes Absolute 0.02 0.00 - 0.06 x10^9/L 01/08/2015 9:47 AM CDT [facility] Blood BLOOD SPECIMEN / Unknown 01/08/2015 9:40 AM CDT 01/08/2015 9:44 AM CDT Dougie Figueroa MD LAB - HEMATOLOGY ORD ERABLES [facility] [address] [place] [address] * (ABNORMAL) COMPREHENSIVE METABOLIC PANEL (01/08/2015 9:40 AM [facility]) Only the most recent of2 resultswithin the time period is included. [facility] Signature Glucose 84 74 - 106 mg/dL 01/08/2015 10:03 AM [facility] Sodium 138 136 - 145 mmol/L 01/08/2015 10:03 AM [facility] Potassium 3.4(L) 3.5 - 5.1 mmol/L 01/08/2015 10:03 AM [facility] Chloride 102 98 - 107 mmol/L 01/08/2015 10:03 AM [facility] CO2 28 22 - 31 mmol/L 01/08/2015 10:03 AM [facility] Calcium 9.0 8.5 - 10.1 mg/dL 01/08/2015 10:03 AM [facility] Anion Gap 8 5 - 20 mmol/L 01/08/2015 10:03 AM [facility] BUN 8 7 - 21 mg/dL 01/08/2015 10:03 AM [facility] Creatinine 0.86 0.50 - 1.30 mg/dL 01/08/2015 10:03 AM [facility] Alkaline Phosphatase 79 38 - 126 U/L 01/08/2015 10:03 AM [facility] ALT 107(H) 12 - 78 U/L 01/08/2015 10:03 AM [facility] AST 53(H) 5 - 40 U/L 01/08/2015 10:03 AM [facility] Protein Total 6.1(L) 6.4 - 8.2 gm/dL 01/08/2015 10:03 AM [facility] Albumin 3.2(L) 3.4 - 5.0 gm/dL 01/08/2015 10:03 AM [facility] Bilirubin Total 0.4 0.2 - 1.0 mg/dL 01/08/2015 10:03 AM [facility] eGFR by MDRD >60 >60 mL/min/1.7 3m2 01/08/2015 10:03 AM [facility] eGFR by MDRD >60 >60 mL/min/1.7 3m2 01/08/2015 10:03 AM [facility] Blood BLOOD SPECIMEN / Unknown 01/08/2015 9:40 AM CDT 01/08/2015 9:44 AM CDT Dougie Figueroa MD LAB - CHEMISTRY [place] [facility] [address] [place] [address] * GROSS + MICRO EXAM (STL) (01/06/2015 4:58 PM CDT) Only the most recent of2 resultswithin the time period is included. Case Report Surgical Pathology Report ? Case: [id number] ? Authorizing Provider: ??Dougie Figueroa MD ?Collected: ? 01/06/2015 04:58 PM ? Ordering Location: ? [facility] ? Received: ?01/07/2015 07:28 AM ? Pathologist: ? Dennis Ramos MD ? Specimen: ?Gallbladder ? 01/08/2015 4:05 PM CDT [facility] Final Diagnosis 1. ??Gallbladder, cholecystectom y: -- ??Cholecystiti s, chronic, mild JW/chang 01/08/2015 4:05 PM CDT [facility] Gross Description Received in a formalin container labeled Lydia Kaiser., gallbladder. ??The container holds an 8.5 x 3 x 2 cm surgically disrupted ??gallbladder. ??The cystic duct is patent and unremarkable. ??The contents of the gallbladder and the container are strained yielding no gallstones or gritty material. ??The bile is yellow-green. ??The mucosa is green and velvety with yellow streaks. ??The wall of the gallbladder measures 0.2 cm in maximum thickness. ??Representati ve sections are submitted in a cassette labeled A1. JUSTEN/juliana 01/08/2015 4:05 PM CDT [facility] Microscopic Description Microscopic examination supports pathologic diagnosis. LATISHA/chang 01/08/2015 4:05 PM CDT [facility] Pathology/Cytolo gy ENTIRE GALLBLADDER / Unknown 01/06/2015 4:58 PM CDT 01/07/2015 7:28 AM CDT Dougie Figueroa MD LAB - PATHOLOGY/CYTO LOGY ORDERABLES [facility] [address] [place] [address] * NM HEPATOBILIARY WITH EF (01/05/2015 9:19 AM CDT) Anatomical Region Laterality Modality Abdomen Nuclear Medicine 01/05/2015 11:2 4 AM CDT Impressions 01/05/2015 12:22 PM CDT Depressed gallbladder ejection fraction as described. Edited by Loida Merrill on 01/05/2015 11:28 AM Narrative 01/05/2015 12:22 PM CDT NUCLEAR MEDICINE HEPATOBILIARY SCAN WITH CCK INDICATION: Abdominal pain and nausea. TECHNIQUE: 5 mCi technetium Choletec injected intravenously followed by 2.9 mcg of CCK injected intravenously. FINDINGS: There is homogeneous uptake of radiotracer throughout the liver. The gallbladder is visualized at 20 minutes with progressive uptake through 55 minutes. There is no evidence of acute cholecystitis. Gallbladder ejection fraction measures 21% which is below normal limits. Procedure Note Cm Jaimes MD - 01/05/2015 NUCLEAR MEDICINE HEPATOBILIARY SCAN WITH CCK INDICATION: Abdominal pain and nausea. TECHNIQUE: 5 mCi technetium Choletec injected intravenously followed by 2.9 mcg of CCK injected intravenously. FINDINGS: There is homogeneous uptake of radiotracer throughout the liver. The gallbladder is visualized at 20 minutes with progressive uptake through 55 minutes. There is no evidence of acute cholecystitis. Gallbladder ejection fraction measures 21% which is below normal limits. IMPRESSION Depressed gallbladder ejection fraction as described. Edited by Loida Merrill on 01/05/2015 11:28 AM Dougie Figueroa MD NM ORDERABLES * US ABD LIMITED (RUQ) (01/03/2015 10:34 AM CDT) Anatomical Region Laterality Modality Abdomen Ultrasound 01/03/2015 10:3 7 AM CDT Impressions 01/03/2015 10:38 AM CDT UNREMARKABLE RIGHT UPPER QUADRANT ULTRASOUND. Narrative 01/03/2015 10:38 AM CDT RIGHT UPPER QUADRANT ULTRASOUND INDICATION: Right upper quadrant abdominal pain, elevated lipase TECHNIQUE: Grayscale images of the right upper quadrant were performed. Technologist indicates the examination is limited by patient's obesity. FINDINGS: There is no evidence of cholelithiasis. The liver is normal in size and echogenicity. The common bile duct measures 0.34cm. The visualized portions of the pancreas are unremarkable. The right kidney is of normal size, echogenicity and renal cortical thickness and measures 9.02 x 4.54 x 4.17 cm. Procedure Note Gianna May MD - 01/03/2015 RIGHT UPPER QUADRANT ULTRASOUND INDICATION: Right upper quadrant abdominal pain, elevated lipase TECHNIQUE: Grayscale images of the right upper quadrant were performed. Technologist indicates the examination is limited by patient's obesity. FINDINGS: There is no evidence of cholelithiasis. The liver is normal in size and echogenicity. The common bile duct measures 0.34cm. The visualized portions of the pancreas are unremarkable. The right kidney is of normal size, echogenicity and renal cortical thickness and measures 9.02 x 4.54 x 4.17 cm. IMPRESSION UNREMARKABLE RIGHT UPPER QUADRANT ULTRASOUND. Dougie Figueroa MD US ORDERABLES * TSH REFLEX FREE T4 (01/03/2015 6:56 AM CDT) Pathologist [facility] TSH 2.63 0.358 - 3.740 ulU/mL 01/03/2015 8:09 AM CDT [facility] Blood BLOOD SPECIMEN / Unknown 01/03/2015 6:56 AM CDT 01/03/2015 7:17 AM CDT Cheryl Turner PA-C LAB - CHEMISTRY [place]DE [place] Performing Organization Address City/[facility]/ZIP Co de Phone Number [facility] [address] [place] [address] * LIPID PROFILE (01/03/2015 6:56 AM CDT) Pathologist [facility] Cholesterol 188 <200 mg/dL 01/03/2015 7:45 AM CDT [facility] Triglycerides 33 <150 mg/dL 01/03/2015 7:45 AM CDT [facility] HDL Cholesterol 95 >40 mg/dL 01/03/2015 7:45 AM CDT [facility] LDL Calculated 86 <130 mg/dL 01/03/2015 7:45 AM CDT [facility] VLDL Calculated 7 <=30 mg/dL 01/03/2015 7:45 AM CDT [facility] Chol HDL Ratio 2.0 <4.5 01/03/2015 7:45 AM CDT [facility] LDL/HDL Ratio 0.9 <5.0 01/03/2015 7:45 AM CDT [facility] Blood BLOOD SPECIMEN / Unknown 01/03/2015 6:56 AM CDT 01/03/2015 7:17 AM CDT Lamar Jean-Baptiste DENTAL LABORATORY TECHNICIAN APPRENTICE-CUSTOMS INSPECTOR LAB - CHEM ISTRY ORDERABLES Performing Organization Address City/[facility]/ZIP Co de Phone Number [facility] [address] [place] [address] * TROPONIN I (01/02/2015 2:52 PM CDT) Only the most recent of3 resultswithin the time period is included. Pathologist [facility] Troponin I <0.015 0.000 - 0.049 ng/mL 01/02/2015 3:16 PM CDT [facility] Blood BLOOD SPECIMEN / Unknown 01/02/2015 2:52 PM CDT 01/02/2015 2:55 PM CDT Narrative [facility] - 01/02/2015 3:16 PM CDT Note: Diagnosis of myocardial infarction requires symptoms of ischemia or EKG changes of ischemia and TNI >99th of normal (0.05 ng/mL). Troponin should be drawn on initial assessment and 3-6 hours later as clinically indicated. Any condition resulting in myocardial cell damage can increase cardiac troponin levels. In addition to myocardial infarction, these include but are not limited to CHF, arrhythmia, myocarditis, and non-cardiac related causes such as pulmonary embolism, renal failure and sepsis. Elvis Somers DO LAB - CHEMISTRY OR DERABLES Performing Organization Address City/State/[facility] Co de Phone Number [facility] [address] [place] [address] * NM MYOCARD PERFUSION SPECT STRESS AND REST (01/02/2015 2:37 PM CDT) Anatomical Region Laterality Modality Chest Nuclear Medicine 01/02/2015 2:42 PM CDT Impressions 01/02/2015 2:48 PM CDT 1. ??No evidence of pharmacologically induced reversible defect to suggest ischemia. 2. ??Normal left ventricle wall motion, with a composite left ventricular ejection fraction of greater than 70 %. Narrative 01/02/2015 2:48 PM CDT MYOCARDIAL SPECT MULTI MYOCARDIAL PERFUSION WITH EJECTION FRACTION MYOCARDIAL PERFUSION WITH WALL MOTION INDICATION: Chest Pain RADIOPHARMACEUTICAL: 10 mCi of ??Tc99m Tetrofosmin at rest and 30mCi Tc99m Tetrofosmin at stress. 0.4 mg of Lexiscan given intravenously. TECHNIQUE: After the resting SPECT images were made, the patient was given the Lexiscan dose and the stress dose of tracer was given, and the patient was reimaged, using SPECT technique. FINDINGS: Stress and rest images show homogeneous uptake of radiotracer throughout the left ventricle. No significant fixed or reversible perfusion defects are seen. WALL MOTION ANALYSIS: 3-D reconstruction of the gated data shows the left ventricular ejection fraction to measure greater than 70 %. ??No wall motion abnormality is present. Procedure Note Nguyễn Marie MD - 01/02/2015 MYOCARDIAL SPECT MULTI MYOCARDIAL PERFUSION WITH EJECTION FRACTION MYOCARDIAL PERFUSION WITH WALL MOTION INDICATION: Chest Pain RADIOPHARMACEUTICAL: 10 mCi of Tc99m Tetrofosmin at rest and 30mCi Tc99m Tetrofosmin at stress. 0.4 mg of Lexiscan given intravenously. TECHNIQUE: After the resting SPECT images were made, the patient was given the Lexiscan dose and the stress dose of tracer was given, and the patient was reimaged, using SPECT technique. FINDINGS: Stress and rest images show homogeneous uptake of radiotracer throughout the left ventricle. No significant fixed or reversible perfusion defects are seen. WALL MOTION ANALYSIS: 3-D reconstruction of the gated data shows the left ventricular ejection fraction to measure greater than 70 %. No wall motion abnormality is present. IMPRESSION 1. No evidence of pharmacologically induced reversible defect to suggest ischemia. 2. Normal left ventricle wall motion, with a composite left ventricular ejection fraction of greater than 70 %. Elvis JAIN ORDERABLES * STRESS TEST LEXISCAN (NUCLEAR) (01/02/2015 1:15 PM CDT) Pathologist [facility] Stress Test Summary For full formatted report, please see the report link in the order. Acquisition Time: 2015-01-02 ??13:15:26 Total Exercise Time: 00:04:59 Test Indications: chest pain/sob Medications: Protocol: LEXISCAN ? Max HR: 112 BPM ??70% of ??Pred: 159 BPM Max BP: 147/080 mmHG Max Work Load: 1.0 METS Reason for Termination: Resting ECG: Sinus Rhythm Functional Capacity: HR Response to Exercise: BP Resoonse to Exercise: Chest Pain: No Chest Pain Arrhythmias: No Arrhythmias ST Changes: No Changes From Baseline Overall Impression: Findings to be correlated w/imaging report Diagnosis: Confirmed by DON JARAMILLO MD ([id number]) on 01/02/2015 2:59:41 PM Attending Physician: Referred By: ? Overread By: DON JARAMILLO MD [facility] STRESS 01/02/2015 1:15 PM CDT 01/02/2015 2:59 PM CDT Elvis Somers DO CARDIAC SERVICES O RDERABLES [facility] STRESS * (ABNORMAL) LIPASE BLOOD (01/02/2015 4:40 AM CDT) Lipase 223(H) 10 - 220 U/L 01/02/2015 6:29 AM CDT [facility] Blood BLOOD SPECIMEN / Unknown 01/02/2015 4:40 AM CDT 01/02/2015 5:00 AM CDT Elvis Somers DO LAB - CHEMISTRY OR DERABLES Performing Organization Address [facility] Co de Phone Number [facility] [address] [place] [phone] * XR CHEST PA AND LATERAL (01/02/2015 2:36 AM CDT) Anatomical Region Laterality Modality Chest Radiographic Latasha ging 01/02/2015 8:11 AM CDT Impressions 01/02/2015 8:11 AM CDT No acute disease. Narrative 01/02/2015 8:11 AM CDT Chest Two Views History: Chest pain. Comparison: January 30, 2008. Findings: Cardiomegaly. No acute infiltrate, edema, pleural effusion, pneumothorax. Procedure Note Baltazar Saeed MD - 01/02/2015 Chest Two Views History: Chest pain. Comparison: January 30, 2008. Findings: Cardiomegaly. No acute infiltrate, edema, pleural effusion, pneumothorax. IMPRESSION No acute disease. Elvis Somers DO DIAGNOSTIC IMAGING ORDERABLES * EMG WITH NERVE CONDUCTION STUDY (03/18/2014) Billy Haywood MD [facility]UROLOGY [facility] * MRI SPINE LUMBAR NON CONTRAST (12/09/2013) Anatomical Region Laterality Modality Spine Other Billy Haywood MD MR ORDERABLES * MRIO BRAIN W/O CONTRAST (09/18/2008 5:25 PM CDT) Anatomical Region Laterality Modality Other 09/18/2008 5:25 PM CDT Narrative 09/18/2008 6:20 PM CDT INDICATION- Headache, blurred vision, dizziness. TECHNIQUE- The following sequences were obtained- Sagittal and axial T1, axial dual-echo T2, coronal FLAIR. FINDINGS- Ventricles and sulci are within normal limits in size for patient's given age. There is no intracranial hemorrhage, mass, or mass effect. No abnormal extra-axial fluid collection is seen. There is no cortical infarction. Nonspecific white matter disease is mild and age-appropriate. Incidental note is made of a mucous retention cyst in the left maxillary sinus. IMPRESSION- MRI is within normal limits for age. ? Read By- GIANNA MAY ??M.D. ? Released By- GIANNA MAY ??M.D. ? Released Date Time- 09/18/08 1820 ? Recovery Engineer- BEM ? ADM- HANY BEASLEY ? ATT- HANY BEASLEY REF- HANY BEASLEY ? CON- PCP- HANY BEASLEY ? SCP- Procedure Note Gianna May - 09/18/2008 INDICATION- Headache, blurred vision, dizziness. TECHNIQUE- The following sequences were obtained- Sagittal and axial T1, axial dual-echo T2, coronal FLAIR. FINDINGS- Ventricles and sulci are within normal limits in size for patient's given age. There is no intracranial hemorrhage, mass, or mass effect. No abnormal extra-axial fluid collection is seen. There is no cortical infarction. Nonspecific white matter disease is mild and age-appropriate. Incidental note is made of a mucous retention cyst in the left maxillary sinus. IMPRESSION- MRI is within normal limits for age. Read By- GIANNA MAY M.D. Released By- GIANNA MAY M.D. Released Date Time- 09/18/08 182 Recovery Engineer- BEM ADM- HANY BEASLEY ATTHANY GRIFFIN REF- HANY BEASLEY CON- PCP- HANY BEASLEY SCP- Hany Beasley MD MR ORDERABLES Care Teams Bill Checker Relationship Specialty Start Date End Date Mireya Cohn APRN-CUSTOMS INSPECTOR [address] [id number] PCP - General Nurse Practitioner 05/01/17 Cheryl Adams, RN Nascar Driver 01/04/15
--- OUTSIDE RECORDS SUMMARY | 2024-06-07 05:36 | XMS_ITS | Referral Summary ---
Author Organization [facility] Address [address] [place] [address] Care Team Providers Care Workforce Staffing Advisor Name Role Phone Cheryl Adams RN Unavailable [phone] Mireya Cohn APRN-SECOND STEWARD Primary Care Provider + Source Comments [facility],non-owned Affiliates and Associated Physician Practices is amultiple site organization consisting of ambulatory clinics and hospital sitesin [place], [place], [place] and [place]. This disclosure is being madepursuant to the Care Everywhere program and may not contain all information available regarding this patient. Last updated 18.[facility] Allergies Active Allergy Reactions Criticality Noted Date Comments Moxifloxacin Rash Low 05/29/2014 Cyclobenzaprine Rash Low 05/29/2014 Povidone Iodine Rash Medium 05/29/2014 Also Betadine Levofloxacin Rash Low 05/29/2014 Penicillins Rash Low 05/29/2014 Sulfa Drugs Rash Low 05/29/2014 Hydrocodone-Acetaminophen Rash Low 05/29/2014 Medications * Be aware that medications may not be up to date on this document. Alwaysverify current medications with the patient. Medication Sig Dispensed Refills Start Date End Date Status aspirin 81 MG tablet Take 81 mg by mouth once daily. Active Ergocalciferol (VITAMIN D PO) Take by mouth. Active montelukast (SINGULAIR) 10 MG tablet Take 10 mg by mouth once daily 05/27/2014 Active Biotin 800 MCG TABSIndications:Mayur r Discoloration,Thinn ing of Nails Take 800 mcg by mouth once daily Reasons: Hair Discoloration, Thinning of Fingernails or Toenails Active acetaminophen (TYLENOL) 325 MG tablet Take 2 Tabs by mouth every 4 hours as needed Maximum allowable Acetaminophen amount = 4 Grams (4000 mg) / 24 hours. 01/03/2015 Active atenolol (TENORMIN) 25 MG tablet Take 0.5 Tabs by mouth 2 times daily 30 Tab 0 01/03/2015 Active omeprazole (PRILOSEC) 40 MG capsule Take 1 Cap by mouth daily before breakfast 30 Cap 1 01/03/2015 Active lisinopril (PRINIVIL; ZESTRIL) 40 MG tablet 1 Tab once daily 01/12/2015 Active amLODIPine (NORVASC) 5 MG tablet Take 10 mg by mouth once daily Active escitalopram (LEXAPRO) 5 MG tablet Take 5 mg by mouth once daily Active cyanocobalamin (VITAMIN B-12) 100 MCG tablet Take 100 mcg by mouth once daily Active fluticasone propionate (FLONASE) 50 MCG/ACT nasal spray [place] 2 sprays into each nostril once daily Active Probiotic Product (PROBIOTIC ADVANCED PO) Take by mouth once daily Active raNITIdine (ZANTAC) 150 MG tablet 03/27/2017 Active furosemide (LASIX) 20 MG tablet 05/26/2017 Active Active Problems Problem Noted Date Diagnosed Date [...] Comments Blood Pressure 144/83 06/29/2017 12:07 PM TREE FELLER OPERATOR Pulse 57 06/29/2017 12:07 PM TREE FELLER OPERATOR Temperature 36 ??C (96.8 ??F) 06/29/2017 12: 07 PM TREE FELLER OPERATOR Respiratory Rate 18 06/14/2017 7:46 AM TREE FELLER OPERATOR Oxygen Saturation 99% 06/14/2017 7:46 AM TREE FELLER OPERATOR Inhaled Oxygen Concentration - - Weight 140.7 kg (310 lb 3.2 oz) 09/19/2017 2:56 PM CDT Height 167.6 cm (5' 6) 09/19/2017 2:56 PM CDT Body Mass Index 50.07 09/19/2017 2:56 PM CDT Functional Status Functional Status Response Date of Assess ment Is person deaf or have serious hearing difficult y? No 06/14/2017 Is person blind or have serious difficulty seein g? No 06/14/2017 Does person have serious dif ficulty walking/climbing stairs? No 06/14/2017 Does person have difficulty dressing/bathing? No 06/14/2017 Does person have difficulty doing errands alone? No 06/14/2017 Cognitive Status Response Date of Assessm ent Does person have difficulty concentrating/remembering/making decisions? No 06/14/2017 Plan of Treatment Not on file Procedures Procedure Name Priority Date/Time Associated Diagnosis Comments BASIC METABOLIC PANEL (CALCIUM TOTAL) STAT 06/13/2017 6:17 AM [facility] Preoperative examination LIPID PROFILE AM Draw 01/03/2015 6:56 AM CDT from Last 3 Months or Most Recently Relevant to Health Maintenance Results * (ABNORMAL) BASIC METABOLIC PANEL (CALCIUM TOTAL) (06/13/2017 6:17 AM [facility]) Glucose 98 74 - 106 mg/dL 06/13/2017 6:[address] [facility] Sodium 137 136 - 145 mmol/L 06/13/2017 6:[address] [facility] Potassium 3.7 3.5 - 5.1 mmol/L 06/13/2017 6:[address] [facility] Chloride 105 98 - 107 mmol/L 06/13/2017 6:[address] [facility] CO2 28 22 - 31 mmol/L 06/13/2017 6:[address] [facility] Calcium 8.8 8.5 - 10.1 mg/dL 06/13/2017 6:[address] [facility] Anion Gap 4(L) 8 - 16 mmol/L 06/13/2017 6:[address] [facility] BUN 14 7 - 21 mg/dL 06/13/2017 6:[address] [facility] Creatinine 0.76 0.50 - 1.30 mg/dL 06/13/2017 6:58 AM TREE FELLER [facility]PER[facility] eGFR by MDRD >60 >60 mL/min/1.7 3m2 06/13/2017 6:58 AM TREE FELLER OPER[facility] eGFR by MDRD >60 >60 mL/min/1.7 3m2 06/13/2017 6:58 AM TREE FELLER OPERATOR [facility] Blood BLOOD SPECIMEN / Unknown Venipuncture / Unknown 06/13/2017 6:17 AM TREE FELLER OPERATOR 06/13/2017 6:33 AM TREE FELLER OPERATOR Hope Vincent DO LAB - CHEMISTRY [place] JARQUIN Performing Organization Address City/[facility]/ZIP Co de Phone Number [facility] [address] [place] [address] * LIPID PROFILE (01/03/2015 6:56 AM CDT) Cholesterol 188 <200 mg/dL 01/03/2015 7:45 AM CDT [facility] Triglycerides 33 <150 mg/dL 01/03/2015 7:45 AM CDT [facility] HDL Cholesterol 95 >40 mg/dL 01/03/2015 7:45 AM CDT [facility] LDL Calculated 86 <130 mg/dL 01/03/2015 7:45 AM CDT [facility] VLDL Calculated 7 <=30 mg/dL 01/03/2015 7:45 AM CDT [facility] Chol HDL Ratio 2.0 <4.5 01/03/2015 7:45 AM CDT [facility] LDL/HDL Ratio 0.9 <5.0 01/03/2015 7:45 AM CDT [facility] Blood BLOOD SPECIMEN / Unknown 01/03/2015 6:56 AM CDT 01/03/2015 7:17 AM CDT Lamar Jean-Baptiste APRN-SECOND STEWARD LAB - CHEM ISTRY ORDERABLES Performing Organization Address City/[facility]/ZIP Co de Phone Number [facility] [address] [place] [address] from Last 3 Months or Most Recently Relevant to Health Maintenance Advance Directives * Full Code (Latest Code Status on File) Date Activated Date Inactivated Comments 06/13/2017 11:01 AM 06/14/2017 2:02 PM * Full Code Date Activated Date Inactivated Comments 01/02/2015 5:21 PM 01/08/2015 4:24 PM * Full Code Date Activated Date Inactivated Comments 01/02/2015 3:45 PM 01/02/2015 5:21 PM Care Teams Workforce Staffing Advisor Relationship Specialty Start Date End Date Mireya Cohn APRN-CNP [address] [phone] PCP - General Nurse Practitioner 05/01/17 Cheryl Admas, RN Reel Operator 01/04/15
--- OUTSIDE RECORDS SUMMARY | 2024-06-07 05:36 | XMS_ITS | Clinical Summary ---
Author Organization [facility] Address [address] [facility] [place] [address] Care Team Providers Care Bottom Crane Operator Name Role Phone Cheryl Adams RN Unavailable [phone] Mireya Cohn APRN-PAN HELPER Primary Care Provider + Source Comments [facility],non-owned Affiliates and Associated Physician Practices is amultiple site organization consisting of ambulatory clinics and hospital sitesin [place], [place], [place] and [place]. This disclosure is being madepursuant to the Care Everywhere program and may not contain all information available regarding this patient. Last updated 18.[facility] Allergies Active Allergy Reactions Criticality Noted Date [...] fluticasone propionate (FLONASE) 50 MCG/ACT nasal spray [place] 2 sprays into each nostril once daily Active Probiotic Product (PROBIOTIC ADVANCED PO) Take by mouth once daily Active raNITIdine (ZANTAC) 150 MG tablet 03/27/2017 Active furosemide (LASIX) 20 MG tablet 05/26/2017 Active Active Problems Problem Noted Date Diagnosed Date Complication of gastric banding 06/13/2017 Fitting and adjustment of gastric lap band 03/29 Chest pain 01/02/2015 Abdominal pain, epigastric 01/02/2015 Family History Medical History Relation Name Comments CAD (Coronary Artery Disease) Mother Diabetes Mother Hypercholesterolemia Sister Hypertension Sister Relation Name Status Comments Mother Sister Social History Tobacco Use Types [...] Comments Blood Pressure 144/83 06/29/2017 12:07 PM BOOM TRUCK DRIVER Pulse 57 06/29/2017 12:07 PM BOOM TRUCK DRIVER Temperature 36 ??C (96.8 ??F) 06/29/2017 12: 07 PM BOOM TRUCK DRIVER Respiratory Rate 18 06/14/2017 7:46 AM BOOM TRUCK DRIVER Oxygen Saturation 99% 06/14/2017 7:46 AM BOOM TRUCK DRIVER Inhaled Oxygen Concentration - - Weight 140.7 kg (310 lb 3.2 oz) 09/19/2017 2:56 PM CDT Height 167.6 cm (5' 6) 09/19/2017 2:56 PM CDT Body Mass Index 50.07 09/19/2017 2:56 PM CDT Plan of Treatment Health Maintenance Due Date Last Done Comments BONE DENSITY TESTING 1955 COLOGUARD (AGES 45-75) - COLON CA SCREENING 1953 COLON MONITORING 1953 COLONOSCOPY - COLON CA SCREENING 1953 CT COLONOGRAPHY - COLON CA SCREENING 1953 Colorectal Cancer Screening 1953 FIT - COLON CA SCREENING 1953 FLEX SIG - COLON CA SCREENING 1955 MAMMOGRAM 1955 MEDICARE AWV ? 12 MONTHS 1953 HEPATITIS C SCREENING 12/08/1971 DTAP/TDAP/TD VACCINES (1 - Tdap) 1972 PNEUMOCOCCAL VACCINE 50+ (1 of 1 - PCV) 12/13/2003 ZOSTER VACCINE (1 of 2) 12/13/2003 Respiratory Syncytial Virus (RSV) Vaccine Pt: or over 60 yrs (1 - Risk 60-74 years 1-dose series) 2013 LIPID TESTING 01/04/2020 01/03/2015 SCREENING FOR DIABETES 06/13/2020 8, 01/08/2015, 01/03/2015, Additional history exists COVID-19 VACCINE ( season) 2024 INFLUENZA VACCINE (#1) 2024 02/25/2015 DEPRESSION SCREENING 05/15/2024 HEPATITIS B VACCINE Aged Out No longe r eligible based on patient's age to complete this topic HIB VACCINE Aged Out No longer eligi ble based on patient's age to complete this topic HPV VACCINE Aged Out No longer eligi ble based on patient's age to complete this topic MENINGOCOCCAL (Group B) VACCINE Aged Out No longer eligible based on patient's age to complete this topic MENINGOCOCCAL VACCINE Aged Out No artemio jayjay eligible based on patient's age to complete this topic Procedures Procedure Name Priority Date/Time Associated Diagnosis Comments BASIC METABOLIC PANEL (CALCIUM TOTAL) STAT 06/13/2017 6:17 AM BOOM TRUCK DRIVER Preoperative examination LIPID PROFILE AM Draw 01/03/2015 6:56 AM CDT from Last 3 Months or Most Recently Relevant to Health Maintenance Results * (ABNORMAL) BASIC METABOLIC PANEL (CALCIUM TOTAL) (06/13/2017 6:17 AM BOOM TRUCK DRIVER) Pathologist [facility] Glucose 98 74 - 106 mg/dL 06/13/2017 6:58 AM [facility] Sodium 137 136 - 145 mmol/L 06/13/2017 6:58 AM [facility] Potassium 3.7 3.5 - 5.1 mmol/L 06/13/2017 6:58 AM [facility] Chloride 105 98 - 107 mmol/L 06/13/2017 6:58 AM [facility] CO2 28 22 - 31 mmol/L 06/13/2017 6:58 AM [facility] Calcium 8.8 8.5 - 10.1 mg/dL 06/13/2017 6:58 AM [facility] Anion Gap 4(L) 8 - 16 mmol/L 06/13/2017 6:58 AM [facility] BUN 14 7 - 21 mg/dL 06/13/2017 6:58 AM [facility] Creatinine 0.76 0.50 - 1.30 mg/dL 06/13/2017 6:58 AM [facility] eGFR by MDRD >60 >60 mL/min/1.7 3m2 06/13/2017 6:58 AM [facility] eGFR by MDRD >60 >60 mL/min/1.7 3m2 06/13/2017 6:58 AM [facility] Blood BLOOD SPECIMEN / Unknown Venipuncture / Unknown 06/13/2017 6:17 AM BOOM TRUCK DRIVER 06/13/2017 6:33 AM [facility] Hope Vincent DO LAB - CHEMISTRY [place] [facility] [address] [place] [address] * LIPID PROFILE (01/03/2015 6:56 AM CDT) Cholesterol 188 <200 mg/dL 01/03/2015 7:45 AM CDT [facility] Triglycerides 33 <150 mg/dL 01/03/2015 7:45 AM CDT [facility] HDL Cholesterol 95 >40 mg/dL 01/03/2015 7:45 AM CDT [facility] LDL Calculated 86 <130 mg/dL 01/03/2015 7:45 AM CDT [facility] VLDL Calculated 7 <=30 mg/dL 01/03/2015 7:45 AM CDT [facility] Chol HDL Ratio 2.0 <4.5 01/03/2015 7:45 AM CDT [facility] LDL/HDL Ratio 0.9 <5.0 01/03/2015 7:45 AM CDT [facility] Blood BLOOD SPECIMEN / Unknown 01/03/2015 6:56 AM CDT 01/03/2015 7:17 AM CDT Lamar Jean-Baptiste SALES MERCHANDISE ASSOCIATE-PAN HELPER LAB - CHEM ISTRY ORDERABLES [facility] [id number] [place] [id number] from Last 3 Months or Most Recently Relevant to Health Maintenance Advance Directives * Full Code (Latest Code Status on File) Date Activated Date Inactivated Comments 06/13/2017 11:01 AM 06/14/2017 2:02 PM * Full Code Date Activated Date Inactivated Comments 01/02/2015 5:21 PM 01/08/2015 4:24 PM * Full Code Date Activated Date Inactivated Comments 01/02/2015 3:45 PM 01/02/2015 5:21 PM Care Teams Bottom Crane Operator Relationship Specialty Start Date End Date Mireya Cohn APRN-PAN HELPER [address] [address] PCP - General Nurse Practitioner 05/01/17 Cheryl Adams, RN Thermograph Operator 01/04/15
--- OUTSIDE RECORDS SUMMARY | 2024-06-07 05:36 | XMS_ITS | Encounter Summary ---
Author Organization [facility] Address [address] [facility] [place] [address] Care Team Providers Care Barrel Driller Name Role Phone Cheryl Adams RN Unavailable Mireya Cohn APRN-DESKTOP PUBLISHER Primary Care Provider + Encounter Details Date Type Department Care Team (Late st Contact Info) Description 01/01/2019 Lab Requisition [facility] [address] [facility] [place] [address] Hope Gonzáles MD [address] [facility] [address] [place] [address] Social History Tobacco Use Types Packs/Day Years Used Date Smoking Tobacco: Former Cigarettes Q uit: 1980 Smokeless Tobacco: Never Alcohol Use Standard Drinks/Week Comments No 0 (1 standard drink = 0.6 oz pur e alcohol) Sex and Gender Information Value Date Recorded Sex Assigned at Not on file Gender Identity Not on file Sexual Orientation Not on file documented as of this encounter Functional Status Functional Status Response Date of [...] person have difficulty concentrating/remembering/making decisions? No 06/14/2017 documented as of this encounter Plan of Treatment Not on file documented as of this encounter Procedures Procedure Name Priority Date/Time Associated Diagnosis Comments DERMATOPATHOLOGY Routine 12/31/2018 12:0 0 AM CDT documented in this encounter Results * DERMATOPATHOLOGY (12/31/2018 12:00 AM CDT) Case Report Dermatopathology Report ? Case: [id number] ? Authorizing Provider: ??Hope Gonzáles MD ? Collected: ? 12/31/2018 12:00 AM ? Ordering Location: ? [facility] ?Received: ?01/01/2019 07:15 AM ? Pathologist: ? Val Willoughby MD ? Specimen: ?Skin, right back ? 9 12:01 PM CDT DERMATOPATHOLOGY LABORATORY Final Diagnosis Specimen A. SKIN, right back: COMPOUND MELANOCYTIC NEVUS (D22.5) 9 12:01 PM CDT DERMATOPATHOLOGY LABORATORY Clinical History Nevus, irrit. 12:01 PM CDT DERMATOPATHOLOGY LABORATORY Gross Description Specimen A: Received is one formalin filled container labeled with the patient's name and designated right back. The specimen consists of a shave measuring [id number]. Jar 0. 12:01 PM CDT DERMATOPATHOLOGY LABORATORY Microscopic Description Specimen A. SKIN, right back: There are nests of melanocytes at the dermal-epidermal junction and within the dermis. 12:01 PM CDT DERMATOPATHOLOGY LABORATORY Disclaimer An external and internal positive and negative controls are appropriate for the histochemical, immunohistochemical and immunofluorescence stain(s) in this case (if any), except where stated explicitly. The performance characteristics of the stain(s) cited in this report were developed and its performance characteristic determined by the Dermatopathology Laboratory at [facility], directed by Dr. Elver Duggan. These tests need not be, and therefore are not, approved by the [place] Food and Drug Administration. The tests are used for clinical purposes. Billing Codes Specimen Charges Stain Charges 95918 1 12:01 PM CDT DERMATOPATHOLOGY LABORATORY Embedded Images 12:01 PM CDT DERMATOPATHOLOGY LABORATORY Pathology/Cytolog y TISSUE SPECIMEN FROM SKIN / Unknown 12/31/2018 01/01/2019 7:15 AM CDT Hope Gonzáles MD LAB - PATHOLOGY/CYT OLOGY ORDERABLES DERMATOPATHOLOGY LABORATORY [facility] - Department of Dermatology [address] [place] [address] 5th Floor Lab [address] [phone] documented in this encounter Visit Diagnoses Not on filedocumented in this encounter Care Teams Barrel Driller Relationship Specialty Start Date End Date Mireya Cohn APRN-CORWIN [address] [address] PCP - General Nurse Practitioner 05/01/17 Cheryl Adams RN Interior Designer 01/04/15 documented as of this encounter
== END 2024-06-06 14:07 | disposition home or self-care (01) ==
LOC: ANHBWCIMG 14:08
PROVIDERS: PCP Nurse Practitioner Adult Health; Visit Provider Nurse Practitioner Adult Health
DX: M19.042 Primary osteoarthritis, left hand (principal)
CPT/HCPCS: 73130

== ENCOUNTER 2024-09-04 08:24 | Outpatient (CLI) | payer MEDICARE, BC, SELFPAY ==
--- NOTE | ~2024-09-04 | XR_ITS ---
Right Shoulder Technique: AP and scapular Y views were obtained. Clinical History: Arthritis Findings: No fracture or dislocation is seen. Osseous alignment is anatomic. The glenohumeral joint d emonstrates advanced degenerative change. AC joint intact. Soft tissues are unremarkable. Impression: Advanced glenohumeral joint degenerative change. Reviewed, dictated and finalized at location . Impression: Advanced glenohumeral joint degenerative change.
--- OUTSIDE RECORDS SUMMARY | 2024-09-04 08:50 | XMS_ITS | Encounter Summary ---
Author Organization [facility] Address [address] [place] [address] Care Team Providers Care Dispatch Supervisor Name Role Phone Cheryl Adams RN Unavailable [phone] Mireya Cohn APRN-IRON CASTER Primary Care Provider + Encounter Details Date Type Department Care Team (Late st Contact Info) Description 01/01/2019 Lab Requisition [facility] [address] [facility] [place] [address] Hope Gonzáles MD [address] [facility] 3 [place] [address] Social History Tobacco Use Types Packs/Day Years Used Date Smoking Tobacco: Former Cigarettes Q uit: 1980 Smokeless Tobacco: Never Alcohol Use Standard Drinks/Week Comments No 0 (1 standard drink = 0.6 oz pur e alcohol) Comments Unknown Sex and Gender Information Value Date Recorded Sex Assigned at Not on file 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 Answer Date of Assessment Author No 06/14/2017 11:29 AM Zunilda Nobles RN * Is person blind or have serious difficulty seeing? Answer Date of Assessment Author No 06/14/2017 11:29 AM Zunilda Nobles RN * Does person have serious difficulty walking/climbing stairs? Answer Date of Assessment Author No 06/14/2017 11:29 AM Zunilda Nobles RN * Does person have difficulty dressing/bathing? Answer Date of Assessment Author No 06/14/2017 11:29 AM Zunilda Nobles RN * Does person have difficulty doing errands alone? Answer Date of Assessment Author No 06/14/2017 11:29 AM Zunilda Nobles RN documented as of this encounter Mental Status * Does person have difficulty concentrating/remembering/making decisions? Answer Entry Date Author No 06/14/2017 11:29 AM Zunilda Nobles RN documented in this encounter Plan of Treatment Not on file documented as of this encounter Procedures Procedure Name Priority Date/Time Associated Diagnosis Comments DERMATOPATHOLOGY Routine 12/31/2018 12:0 0 AM CDT documented in this encounter Results * DERMATOPATHOLOGY (12/31/2018 12:00 AM CDT) Case Report Dermatopathology Report Case: [id number] Authorizing Provider: Hope Gonzáles MD Collected: 12/31/2018 12:00 AM Ordering Location: [facility] Received: 01/01/2019 07:15 AM Pathologist: Val Willoughby MD Specimen: Skin, right back 9 12:01 PM CDT DERMATOPATHOLOGY LABORATORY Final Diagnosis Specimen A. SKIN, right back: COMPOUND MELANOCYTIC NEVUS (D22.5) 9 12:01 PM CDT DERMATOPATHOLOGY LABORATORY Clinical History Nevus, irrit. 9 12:01 PM CDT DERMATOPATHOLOGY LABORATORY Gross Description Specimen A: Received is one formalin filled container labeled with the patient's name and designated right back. The specimen consists of a shave measuring [id number]. Jar 0. 9 12:01 PM CDT DERMATOPATHOLOGY [...] characteristic determined by the Dermatopathology Laboratory at [facility], directed by Dr. Elver Duggan. These tests need not be, and therefore are not, approved by the [place] Food and Drug Administration. The tests are used for clinical purposes. Billing Codes Specimen Charges Stain Charges 49899 1 9 12:01 PM CDT DERMATOPATHOLOGY LABORATORY Embedded Images 9 12:01 PM CDT DERMATOPATHOLOGY LABORATORY Pathology/Cytolog y TISSUE SPECIMEN FROM SKIN / Unknown 12/31/2018 01/01/2019 7:15 AM CDT Hope Gonzáles MD LAB - PATHOLOGY/CYTOLOGY OR DERABLES Final Result DERMATOPATHOLOGY LABORATORY [facility] - Department of Dermatology [address] [place] [address] 5th Floor Lab [address] [phone] documented in this encounter Visit Diagnoses Not on filedocumented in this encounter Care Teams Dispatch Supervisor Relationship Specialty Start Date End Date Mireya Cohn APRN-CORWIN [address] [address] PCP - General Nurse Practitioner 05/01/17 Cheryl Adams, RN Calibration Engineer 01/04/15 documented as of this encounter
--- OUTSIDE RECORDS SUMMARY | 2024-09-04 08:50 | XMS_ITS | Clinical Summary ---
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 Not on file Not on file Not on file Last Filed Vital Signs Vital Sign Reading Time Taken Comments Blood Pressure 175/82 07/29/2019 7:35 AM CDT Pulse 78 07/29/2019 6:33 AM CDT Temperature 36 C (96.8 F) 07/29/2019 7:35 AM CDT Respiratory Rate 13 07/29/2019 7:35 AM CDT Oxygen Saturation 100% 07/29/2019 7:35 AM CDT Inhaled Oxygen Concentration - - Weight 124.7 kg (275 lb) 07/15/2019 9:00 AM TOOL SPECIALIST Height 167.6 cm (5' 6) 07/15/2019 9:00 AM TOOL SPECIALIST Body Mass Index 44.39 07/15/2019 9:00 AM TOOL SPECIALIST Plan of Treatment Health Maintenance Due Date Last Done Comments DEXA Bone Density 1955 Hepatitis C Virus (HCV) Screening 1955 Mammogram 1955 Colonoscopy 1998 Colorectal Cancer Screening 1998 Cologuard 12/13/2003 Immunochemical Fecal Occult Blood 12/13/2003 Zoster Immunization (1 of 2) 12/13/2003 [...] age to complete this topic Insurance MEDICARE Care Teams Animal Hospital Clerk Relationship Specialty Start Date End Date Mireya Cohn APRN PCP - General Advanced Practice Nurse 10/26/15 Aaron Ennis DO Gastroenterology 10/27/15
--- OUTSIDE RECORDS SUMMARY | 2024-09-04 08:51 | XMS_ITS | CONTINUITY OF CARE DOCUMENT ---
Author Name janell maciel Address Unknown Organization [facility] Address [address] [place] [address] Phone [phone] Care Team Providers Care Thermodynamicist Name Role Phone Jenny RAMEY, Mitali Unavailable Harsha DOCUMENTATION MANAGER-Carine Unavailable TERRENCE BRAN Unavailable PROBLEMS Condition Status Date Provider Notes Dual chamber PM - Biotronik (MRI safe) active Zainab Hassan OBESITY active David Hopkins MD PVC'S active David Hopkins MD HYPERTENSION, ESSENTIAL active David Hopkins MD Hyperlipidemia, unspecified active Yoselin boyd RN Family History of CVA or Stroke: active [...] Pyle RN Hyperlipidemia completed - Gideon Martinez ENCOUNTERS Date Type Provider Location Encounter Diag nosis - In-person encounter Office Visit Mitali Alvarado MD [place] [facility] - In-person encounter Office Visit Mitali Alvarado MD [place] [facility] - In-person encounter Office Visit Mitali Alvarado MD [place] [facility] - In-person encounter Office Visit Mitali Alvarado MD [place] [facility] - In-person encounter Office Visit Mitali Alvarado MD [place] [facility] Preoperative cardiovascular examinationHyperlipidemia - In-person encounter Office Visit Julio Cesar Christopher MD [place] [facility] Chest pain-type to be determined - In-person encounter Office Visit iMtali Alvarado MD [place] [facility] - In-person encounter Office Visit Mitali Alvarado MD [place] [facility] - In-person encounter Office Visit Mitali Alvarado MD [facility] Office - In-person encounter Office Visit Mitali Alvarado MD [place] [facility] - In-person encounter Office Visit Mitali Alvarado MD [place] [facility] Status Post Biotronik (MRI Safe) Loop Recorder - In-person encounter Office Visit Mitali Alvarado MD [place] [facility] Bradycardia - In-person encounter Office Visit Mitali Alvarado MD [place] [facility] Status Post Biotronik (MRI Safe) Loop Recorder - In-person encounter Office Visit [facility] Atrial fibrillation with rap id responsePVD ?JOSE FRANCISCO on CPAP - In-person encounter Office Visit Mitali Alvarado MD [place] [facility] - In-person encounter Office Visit Mitali Alvarado MD [place] [facility] - In-person encounter Office Visit Mitali Alvarado MD [facility] Family History of CVA or Stroke: - In-person encounter Office Visit David Hopkins MD [place] [facility] OBESITYPVC'SHYPERTENSION, ESSENTIALHyperlipidemia, unspecified VITAL SIGNS Date [...] bryan Parekh oxygen saturation, oximetry 96 % [place] Parekh respiratory rate E&M 16 /min Lalo Parekh pulse rate 74 /min [place] Parekh blood pressure, resting Yes Kill tavia Parekh weight E&M 261 [lb_av] Lalo Parekh height E&M 66 [in_i] [facility] Body Mass Index (Ratio) 43.41 kg/m2 Reid [...] blood pressure, systolic 140 mm[Hg] Antony adams Paxton oxygen saturation, oximetry 97 % Lalo Parekh respiratory rate E&M 16 /min [facility] pulse rate 53 /min [place] Parekh weight E&M 263 [lb_av] Lalo Parekh height E&M 66 [in_i] [facility] Body Mass Index (Ratio) 46.38 kg/m2 James lombardo Tej blood pressure, diastolic 85 mm[Hg] Cristiana Martel blood pressure, systolic 144 mm[Hg] Michelle Martel oxygen saturation, oximetry 96 % July Martel respiratory rate E&M 18 /min Chantal Martel pulse rate 66 /min July jimenez weight E&M 287.4 [lb_av] July jackson height E&M 66 [in_i] [place] Parekh Body Mass Index (Ratio) 50.84 kg/m2 [...] MD blood pressure, diastolic 80 mm[Hg] [facility] blood pressure, systolic 138 mm[Hg] Antony adams Parekh oxygen saturation, oximetry 97 % [place] Parekh respiratory rate E&M 16 /min [place] Parekh pulse rate 69 /min [place] Parekh weight E&M 304 [lb_av] Lalo Parekh height E&M 66 [in_i] [place] Parekh Body Mass Index (Ratio) 48.90 kg/m2 [...] er height E&M 66 [in_i] Erika [facility] Body Mass Index (Ratio) 49.22 kg/m2 Reid [...] LinkLogic 0-149 cholesterol, serum 178 mg/dL [facility] [phone]/10 /12 alanine aminotransferase (SGPT), serum 12 1/L [...] LinkLogic 3.5-5.2 sodium, serum 144 mmol/L [facility] [phone]/10 /12 urea nitrogen/creatinine ratio, serum 16 LinkLogic [...] [employer]Logic 3.5-5.2 sodium, serum 142 mmol/L [facility] [phone]/07 /09 urea nitrogen/creatinine ratio, serum 19 LinkLogic [...] Not Estab. platelet count 202 X10E3/UL [facility] [phone]/07 /09 red blood cell distribution width 12.8 % [facility] 12.3-15.4 mean corpuscular hemoglobin concentration, RBC 32.8 G/DL [facility] 31.5-35.7 mean corpuscular hemoglobin, RBC 30.7 pg [facility] 26.6-33.0 mean corpuscular volume, RBC 94 fL [facility] 79-97 hematocrit, blood 40.0 % [facility] 34.0-46.6 hemoglobin, blood 13.1 g/dL [facility] 11.1-15.9 erythrocyte (RBC) count 4.27 X10E6/UL [facility] 3.77-5.28 leukocyte count, blood 3.9 [facility]10E3/UL [facility].8 coagulation managed by Scott Pyle RN international normalized ratio (INR) 1.2 Isis Montero Normal prothrombin time (patient) 14.0 s Isis Montero coagulation managed by [facility] [place] [place] international normalized ratio (INR) 1.0 [...] DAY 07/19 - 07/21 Chastity Carrie vitamin L52-[id number] acid unspecified unspecified active Take 1 tablet [...] into both nostrils NEEDED 05/17 Cayla Fendler LABOR ECONOMICS PROFESSOR Biotin 100+10 800-195 mcg-mg tablet active once a day 05/17 Erika Kirk Daily Probiotic (S. boulardii) 250 mg capsule active Take 1 capsule once a day 05/17 Erika Reagan montelukast 10 mg tablet active Take 1 tablet once a day 10/17 Erika Bakermelany #90, 90 days supply, Filled 7 PRAVASTATIN SODIUM 20 MG ORAL TABLET completed 10/17 - 06/02 [place] Parekh #90, 90 days supply, Filled 7 [...] Date Observation Value Provider alcohol use no [facility] smoking, year quit 1983 Morrisadán lainez number of years as a smoker less than 10 years [facility] smoking, date started 10 Morris lowe smoking history, tot al pack/year 2008 Morrisadán Shoemaker cigarette use yes Morris [facility] smoking status Former smoker Morris Marshall i alcohol use no Morris Shoemaker smoking, year quit 1983 Morris lainez number of years as a smoker less than 10 years Morris Shoemaker smoking, date started Morris lowe smoking history, tot al pack/year 2008 Morris Shoemaker cigarette use yes Morris Shoemaker smoking status Former smoker Morris Marshall i cigarette use yes Cayla Ceciliodl er LABOR ECONOMICS PROFESSOR smoking status Former smoker Cayla Cecilio dler LABOR ECONOMICS PROFESSOR social history E&M Marital Statu s: Single [...] E&M revi ewed - no changes required Peteydaniellehayden Martinez number of grandchildren Julio Cesar Rhoades [...] revi ewed - no changes required Roberto Lerner smoking history, tot al pack/year 2008 Zainab [...] day none Lalo Parekh alcohol use no [place] Parekh caffeine use, averag e drinks per day yes [place] Parekh smoking, year quit 1983 [place] Katie ngram number of years as a smoker less than 10 years Lalo Parekh smoking, date started Killee n Parekh smoking history, tot al pack/year 2007 [place] Parekh cigarette use yes [place] Parekh smoking status Former smoker Lalo Ingr [...] alcohol use, average drinks per day none [place] Parekh alcohol use no [place] Parekh caffeine use, averag e drinks per day yes Lalo Parekh smoking history, tot al pack/year 2007 [...] exercise, f requency, days per week no [facility] alcohol use, average drinks per day none [facility] alcohol use no [facility] caffeine use, averag e drinks per day yes [facility] smoking, year quit 1983 [place] Katie [facility] number of years as a smoker less than 10 years [facility] smoking, date started n [place] smoking history, tot al pack/year 2006 [facility] cigarette use yes [facility] smoking status Former smoker [facility] smoking history, tot al pack/year 2006 Susie [...] than 10 years Link[facility] smoking status [facility] MENTAL STATUS Date Observation Value Provider assessment of judgme nt and insight E&M Alert and oriented to time, place and person. Mood and affect are normal. Scott Pyle RN FAMILY HISTORY Family Member Condition Mother Family History of CV A or Stroke: INSURANCE PROVIDERS Payer name Policy type / Coverage type Butch red constitution party ID [place] [employer] Medicare [id number] [facility] [id number] ADVANCE DIRECTIVES Name Date DISCUSSED - NO DECISION MADE TREATMENT PLAN Date Name Performer [id number],C,e ncouraged lifestyle modications and weight loss for improved health. Cayla López NP [id number],C,no recurrence on last remote check Cayla López NP [id number],C, B P today: 140/86 P rior BP: [...] ..... Once a day Cayla López NP [id number],C, Chol 193, trig 107, HDL 48, LDL 126 (01/2022 LDL 123) intolerant of statins. on zetia. encouraged to cut down on fried fatty foods, sweets, cheeses, butter. increased intake of fish, ie tuna or salmon to 2-3 times per week. lipids in 1 year. Cayla López LABOR ECONOMICS PROFESSOR [id number],C,l ast remote 08/15/22 n o AT/AF 0% Cayla López NP [id number],C,l ast 08/15/22 AT/AF [place]: 0.0% % Pacing: RA - 80.0% RV - 0.0% Transthoracic Impedance: 105.0 ohms today c ompared to baseline of 111.0 ohms Cayla López LABOR ECONOMICS PROFESSOR [id number],C,n o recurrence. ECHO 03/2021 1. Abnormal septal [...] regurgitation. cath: 2017 normal coronaries Cayla López [id number],C,i nterrogation today 2 HVR SVT 04/08/20 2 seconds, and 01/01/2020 2 seconds. n ormal device function. battery 85% EKG paced [facility] [id number],C,complaint wit h CPAP [facility] [id number],C,BP today 120/ 80 [facility]endezFormerly [facility] [id number],C,l abs: 01/04/21 CHOL 223, TRIG 101, HDL 48, LDL 157 o n zetia. does not want to be on statins. e ncouraged to eat salmon or tuna every other day. pt states that she will do this. will recheck lipid panel in 6 months, will determine if improved or if meds will need to be started Cayla López [id number],C,i nterrogation today 2 HVR SVT 04/08/20 2 seconds, and 01/01/2020 2 seconds. n ormal device function. battery 85% well healed scar Cayla López LABOR ECONOMICS PROFESSOR Telehealth - Summary of Call: Received fax from [facility] Mitali Alvarado MD Telehealth - Summary of Call: Received fax from [facility]: H er updated medication list for this [...] - Summary of Call: Received fax from [facility] Mitali Alvarado MD Telehealth - Summary of Call: Received fax from [facility]:STOP aspirrin for 5 days before each procedure [...] Mg Tablet (Furosemide) ..... Once a day [facility] Cardiology:No AF fred nts seen on pcm check This visit has been a part of the consistent, comprehensive, and ongoing management of the chronic medical condition(s) listed above for the patient. [facility] Cardiology:This visi t has been a part of the consistent, comprehensive, and ongoing management of the chronic medical condition(s) listed above for the patient. n ormal function, no events from remote check 01/2024 [facility] Cardiology: P t denies any CP or SOB. cath 2017 C ONCLUSION: 1 . Angiographically normal coronary arteries. 2 . Normal LV size and systolic function with an EF of 60%. [facility] Electrophysiology:Pt denies any CP or SOB. [facility] Electrophysiology:normal functio n [facility] Electrophysiology: B P today: 134/86 P rior [...] Mg Tablet (Furosemide) ..... Once a day [facility] Electrophysiology:AT /AF [place]: 1.0%, most recently detected on [facility] Electrophysiology:LD L is uncontrolled at 137, will start Cresto 10 mg. [facility] Electrophysiology: c omplaint with CPAP [facility] Electrophysiology:en couraged lifestyle modications and weight loss [...] Cayla Fenailin KESSLER Electrophysiology:la st 08/15/22 AT/AF [place]: 0.0% % Pacing: RA - 80.0% RV [...] chedule Followup (*) A yariel Duplex Ultrasound (CPT-43533) Gideon Martinez Cardiology:Weight lo ss advised. I [...] scar o ne short episode of afib [facility] Electrophysiology: H er updated medication list for this problem includes: Atenolol 25 Mg Oral Tablet (Atenolol) ..... One tab. daily at night, stop amlodipine Aspirin Adult Low Dose 81 Mg Oral Tablet Delayed Release (Aspirin) ..... Take 1 tab once daily Roberto Yann Electrophysiology:no rmal device function w ell healing scar Orders: G lobal No Charge (CPT-36726) Roberto Lerner Electrophysiology: H er updated medication [...] [place] [facility]:Or ders: 9 9213 LTD. Complex (CPT-57391) The following medications were removed from the [...] 62 bpm. Orders: 9 9213 LTD. Complex (CPT-78520) The following medications were removed from the medication list: Flecainide Acetate 50 Mg Oral Tablet (Flecainide acetate) ..... One tablet twice a day Her updated medication list for this problem includes: Lisinopril 40 Mg Oral Tablet (Lisinopril) ..... 1 tab daily [place] Electrophysiology:Ryley espinoza stopped taking Flecainide, last dose 02/19/18 due to side effects including nausea and severe [place]. Orders: E KG (CPT-71445) 9 9213 LTD. Complex (CPT-06213) & #13;The following medications were removed from [...] 122/86 (04/14/2017) Mitali Alvarado MD Electrophysiology Fo [facility] up :She is scheduled for ILR implantation on 04/17/2017. E KG today showed sinus bradycardia. Her updated medication list for this problem includes: Atenolol 25 Mg Oral Tablet (Atenolol) ..... One tab. daily Aspirin 81 Mg Oral Tablet (Aspirin) ..... One tab. daily Mitali lAvarado MD Electrophysiology Fo [place] up :Echo done [...] today: 122/86 P rior BP: 130/80 (03/17/2017) Mitlai Alvarado MD Electrophysiology Fo [place] up : [...] </30 D TECH REVIEW completed EKG Mitali agruello MD completed ICM Interrogation, Remote (Prof) Mitali [...] EKG ulius Michelle arguello MD completed SNOMED-CT: [id number] Current Medications Documented Saulius Kalnanyitis completed Loop Recorder Interrogation, Remote Mitali Alvarado MD INTERROGATION EVALUATION REMOTE </30 D ILR SYS completed ICM Interrogation, Remote (Tech) Saulius Kalnanyitis INTERROGATION EVAL REMOTE </30 D TECH REVIEW completed EKG Mitali arguello MD completed SNOMED-CT: 596108968951302 Current Medications Documented Saulius Kalnanyitis completed EKG ulius Michelle arguello MD completed SNOMED-CT: [id number] Current Medications Documented Saulius Kalnanyitis completed
--- OUTSIDE RECORDS SUMMARY | 2024-09-04 08:51 | XMS_ITS | Clinical Summary ---
Author Organization [facility] Address [address] [place] [address] Care Team Providers Care Clutch Operator Name Role Phone Cheryl Adams RN Unavailable [phone] Mireya Cohn APRN-MANAGER POOL Primary Care Provider + Source Comments [facility],non-owned Affiliates and Associated Physician Practices is amultiple site organization consisting of ambulatory clinics and hospital sitesin [place], [place], [place] and [place]. This disclosure is being madepursuant to the Care Everywhere program and may not contain all information available regarding this patient. Last updated 18.[facility] Allergies Active Allergy Reactions Criticality Noted Date Comments Moxifloxacin Rash Low 05/29/2014 Cyclobenzaprine Rash Low 05/29/2014 Povidone Iodine Rash Medium 05/29/2014 Also Betadine Levofloxacin Rash Low 05/29/2014 Penicillins Rash Low 05/29/2014 Sulfa Drugs Rash Low 05/29/2014 Hydrocodone-Acetaminophen Rash Low 05/29/2014 Medications * Be aware that medications may not be up to date on this document. Alwaysverify current medications with the patient. aspirin 81 MG tablet Take 81 mg by mouth once daily. Active Ergocalciferol (VITAMIN D PO) Take by mouth. Active montelukast (SINGULAIR) 10 MG tablet Take 10 mg by mouth once daily 5 Active Biotin 800 MCG TABSIndication s:Hair Discoloration, Thinning of Nails Take 800 mcg by mouth once daily Reasons: Hair Discoloration, Thinning of Fingernails or Toenails Active acetaminophen (TYLENOL) 325 MG tablet Take 2 Tabs by mouth every 4 hours as needed Maximum allowable Acetaminophen amount = 4 Grams (4000 mg) / 24 hours. 5 Active atenolol (TENORMIN) 25 MG tablet Take 0.5 Tabs by mouth 2 times daily 30 Tab 0 5 Active omeprazole (PRILOSEC) 40 MG capsule Take 1 Cap by mouth daily before breakfast 30 Cap 1 5 Active lisinopril (PRINIVIL; ZESTRIL) 40 MG tablet 1 Tab once daily 5 Active amLODIPine (NORVASC) 5 MG tablet Take 10 mg by mouth once daily Active escitalopram (LEXAPRO) 5 MG tablet Take 5 mg by mouth once daily Active cyanocobalamin (VITAMIN B-12) 100 MCG tablet Take 100 mcg by mouth once daily Active fluticasone propionate (FLONASE) 50 MCG/ACT nasal spray [place] 2 sprays into each nostril once daily Active Probiotic Product (PROBIOTIC ADVANCED PO) Take by mouth once daily Active raNITIdine (ZANTAC) 150 MG tablet 7 Active furosemide (LASIX) 20 MG tablet 8 Active Active Problems Problem Noted Date Diagnosed [...] on file Legal Sex Female 6:16 AM LEARNING AND DEVELOPMENT INTERN Gender Identity Not on file Sexual Orientation Not on file Last Filed Vital Signs Vital Sign Reading Time Taken Comments Blood Pressure 144/83 06/29/2017 12:07 PM LEARNING AND DEVELOPMENT INTERN Pulse 57 06/29/2017 12:07 PM LEARNING AND DEVELOPMENT INTERN Temperature 36 C (96.8 F) 06/29/2017 12:07 PM LEARNING AND DEVELOPMENT INTERN Respiratory Rate 18 06/14/2017 7:46 AM LEARNING AND DEVELOPMENT INTERN Oxygen Saturation 99% 06/14/2017 7:46 AM LEARNING AND DEVELOPMENT INTERN Inhaled Oxygen Concentration - - Weight 140.7 [...] - COLON CA SCREENING 1953 MAMMOGRAM 1953 HEPATITIS C SCREENING 12/08/1971 DTAP/TDAP/TD VACCINES (1 - Tdap) 1972 PNEUMOCOCCAL VACCINE 50+ (1 of 1 - PCV) 12/13/2003 ZOSTER VACCINE (1 of 2) 12/13/2003 Respiratory Syncytial Virus (RSV) Vaccine Pt: or over 60 yrs (1 - Risk 60-74 years 1-dose series) 2013 LIPID TESTING 01/04/2020 01/03/2015 SCREENING FOR DIABETES 06/13/2020 8, 01/08/2015, 01/03/2015, Additional history exists COVID-19 VACCINE ( - 2023- season) 2024 DEPRESSION SCREENING 05/15/2024 INFLUENZA VACCINE (Season Ended) 2025 02/25/2015 HEPATITIS B VACCINE Aged Out No longe r eligible based on patient's age to complete this topic HIB VACCINE Aged Out No longer eligi ble based on patient's age to complete this topic HPV VACCINE Aged Out No longer eligi ble based on patient's age to complete this topic MENINGOCOCCAL (Group B) VACCINE SHARED DECISION-MAKING Aged Out No longer eligible based on patient's age to complete this topic MENINGOCOCCAL GROUPS A/C/Y/W VACCINE Aged Out No longer eligible based on patient's age to complete this topic Procedures Procedure Name Priority Date/Time Associated Diagnosis Comments BASIC METABOLIC PANEL (CALCIUM TOTAL) STAT 06/13/2017 6:17 AM LEARNING AND DEVELOPMENT INTERN Preoperative examination LIPID PROFILE AM Draw 01/03/2015 6:56 AM CDT from Last 3 Months or Most Recently Relevant to Health Maintenance Results * (ABNORMAL) BASIC METABOLIC PANEL (CALCIUM TOTAL) (06/13/2017 6:17 AM LEARNING AND DEVELOPMENT INTERN) Pathologist [facility] Glucose 98 74 - 106 mg/dL 06/13/2017 6:58 AM [facility] Sodium 137 136 - 145 mmol/L 06/13/2017 6:58 AM [facility] Potassium 3.7 3.5 - 5.1 mmol/L 06/13/2017 6:58 AM [facility] Chloride 105 98 - 107 mmol/L 06/13/2017 6:58 AM [facility] CO2 28 22 - 31 mmol/L 06/13/2017 6:58 AM [facility] Calcium 8.8 8.5 - 10.1 mg/dL 06/13/2017 6:58 AM [facility] Anion Gap 4(L) 8 - 16 mmol/L 06/13/2017 6:58 AM [facility] BUN 14 7 - 21 mg/dL 06/13/2017 6:58 AM [facility] Creatinine 0.76 0.50 - 1.30 mg/dL 06/13/2017 6:58 AM [facility] eGFR by MDRD >60 >60 mL/min/1.7 3m2 06/13/2017 6:58 AM [facility] eGFR by MDRD >60 >60 mL/min/1.7 3m2 06/13/2017 6:58 AM [facility] Blood BLOOD SPECIMEN / Unknown Venipuncture / Unknown 06/13/2017 6:17 AM LEARNING AND DEVELOPMENT INTERN 06/13/2017 6:33 AM LEARNING AND DEVELOPMENT INTERN us Hope Vincent DO LAB - CHEMISTRY ORDERABLES Emily weston Result [facility] [address] [place] [address] * LIPID PROFILE (01/03/2015 6:56 AM CDT) Cholesterol 188 <200 mg/dL 01/03/2015 7:45 AM CDT [facility] Triglycerides 33 <150 mg/dL 01/03/2015 7:45 AM CDT [facility] HDL Cholesterol 95 >40 mg/dL 01/03/2015 7:45 AM CDT [facility] LDL Calculated 86 <130 mg/dL 01/03/2015 7:45 AM CDT [facility] VLDL Calculated 7 <=30 mg/dL 01/03/2015 7:45 AM CDT [facility] Chol HDL Ratio 2.0 <4.5 01/03/2015 7:45 AM CDT [facility] LDL/HDL Ratio 0.9 <5.0 01/03/2015 7:45 AM CDT [facility] Blood BLOOD SPECIMEN / Unknown 01/03/2015 6:56 AM CDT 01/03/2015 7:17 AM CDT Lamar Jean-Baptiste CLEAN ROOM TECHNICIAN-MANAGER POOL LAB - CHEMISTRY OR DERABLES Final Result [facility] [address] [place] [address] from Last 3 Months or Most Recently Relevant to Health Maintenance Insurance [facility] ANTH Advance Directives * Full Code (Latest Code Status on File) Date Activated Date Inactivated Comments 06/13/2017 11:01 AM 06/14/2017 2:02 PM * Full Code Date Activated Date Inactivated Comments 01/02/2015 5:21 PM 01/08/2015 4:24 PM * Full Code Date Activated Date Inactivated Comments 01/02/2015 3:45 PM 01/02/2015 5:21 PM Care Teams Clutch Operator Relationship Specialty Start Date End Date Mireya Cohn APRN-CORWIN [address] [address] PCP - General Nurse Practitioner 05/01/17 Cheryl Adams, RN Digital Recruiter 01/04/15
--- OUTSIDE RECORDS SUMMARY | 2024-09-04 08:51 | XMS_ITS | Data Portability ---
Author Organization [place] [facility] [employer] Main Office Address [address] [place] [address] Care Team Providers Care Acid Bath Mixer Name Role Phone TERRENCE COHN Primary Care Provider Assessment Encounter Date Assessment Date Assessment LastModified by Organization Details LastModified Time 10/03/2023 10/03/2023 Assessment: Rhinitis Moderate OSAHS, AHI = 16 PLMD Plan: The following were reviewed and explained to the patient: primary care/referral note [facility] diagnostic sleep study 05/12/17 sleep onset = 37.5 minutes, REM onset = 306 minutes, AHI = 16, supine AHI = 27, REM AHI = 79, PLMI = [address] [facility] titration sleep study 07/06/17 sleep onset = 67.5 minutes, REM onset = 138 minutes, ResMed medium AirFit P10 nasal pillows @ 8 cmH2O, PLMI = 0.[address] [facility] titration sleep study 12/22/17 sleep onset = 23.5 minutes, REM onset = 297 minutes, Respironics medium Nuance gel nasal pillows @ 10 cmH2O, PLMI = 0.[address] [facility] titration sleep study 11/14/18 sleep onset = [...] carrier. Patient will setup an appointment with [facility] for supplies and pressure adjustments. A major [...] were reviewed and explained to the patient: [facility] diagnostic sleep study 05/12/17 sleep onset = 37.5 minutes, REM onset = 306 minutes, AHI = 16, supine AHI = 27, REM AHI = 79, PLMI = [address] [facility] titration sleep study 07/06/17 sleep onset = 67.5 minutes, REM onset = 138 minutes, ResMed medium AirFit P10 nasal pillows @ 8 cmH2O, PLMI = 0.[address] [facility] titration sleep study 12/22/17 sleep onset = [...] carrier. Patient will setup an appointment with [facility] for supplies and pressure adjustments. A major [...] Modified Time Details Appointments None recorded. Lab ferritin, serum or plasma 2023 024 [email or web address] 82 [facility], [address] [place], [address], 4 09:00:44 vitamin E, serum 2023 024 [email or web address] 82 [facility], [address] [place], [address], 4 09:00:44 iron + TIBC + ferritin, serum 2023 024 SUE [facility], [address] [place], [address], 4 19:10:36 folate, RBC 2023 024 [email or web address] 25 [facility], [address] [place], [address], 4 09:28:02 vitamin B12, serum 2023 024 [email or web address] 25 [facility], [address] [place], [address], 4 09:28:03 ESR (erythrocyt e sedimentati on rate), blood 2023 024 [email or web address] 25 [facility], [address] [place], [address], 4 09:28:03 hemoglobin + hematocrit, blood 2023 024 [email or web address] 25 [facility], [address] [place], [address], 4 09:28:03 bun (blood urea nitrogen), serum or plasma 2023 024 [email or web address] 25 [facility], [address] [place], [address], 4 09:28:03 creatinine, serum or plasma 2023 024 [email or web address] 25 [facility], [address] [place], [address], 4 09:28:03 magnesium, serum or plasma 2023 024 [email or web address] 25 [facility], [address] [place], [address], 4 09:28:03 vitamin E, serum 2023 024 [facility], [address] [place], [address], 4 00:03:24 urinalysis, dipstick 2022 023 [facility], [address] [place] [address], [address], 3 15:50:13 Referral None recorded. Procedures None recorded. Surgeries None recorded. Imaging None recorded. Medication Orders ferrous sulfate 325 mg (65 mg iron) tablet 2023 024 [facility] #[id number], [address] , [place], [address], 4 09:44:02 Vitamin C 500 mg tablet 2023 024 [facility] #[id number], [address], [place], [address], 4 09:44:04 vitamin E (dl, acetate) 90 mg (200 unit) capsule 2023 024 [facility] #[id number], [address], [place], [address], 4 09:44:03 doxycycline hyclate 100 mg capsule 2022 023 [id number], [address], [place], [address], 15:28:23 Patient TargetsNo targets recorded. Patient Instructions Encounter Date Encounter Id Patient Instructions Last Modified By Organization Details Last Modified Time 12/27/2022 [id number] FU in 6 mo for htn, lipid, allergies, lower back pain, gerd. [email or web address] Not available 12/27/2022 13:59:13 Reason for Referral None Reported. Results Created Date Observation Date Name Description Value Unit Range Abnormal Flag Note LastModifiedBy Organization Detail LastModifiedTime 12/28/1912/27/2022 urina lysis , dipst ick Leukocytes (reference range: negative christina/ l) Negati ve Not Available [address], [address], 12/27/2022 14:41:16 12/28/19 23 12/27/2022 urina lysis , dipst ick Nitrite (reference rage: negative mg/dl) negati ve Not Available [address], [address], 12/27/2022 14:41:16 12/28/1912/27/2022 urina lysis , dipst ick Urobilinogen (reference range: 0.2-1 mg/dl) 0.2 Not Available [address], [address], 12/27/2022 14:41:16 12/28/19 23 12/27/2022 urina lysis , dipst ick Protein (reference range: negative mg/dl) Negati ve Not Available [address], [address], 12/27/2022 14:41:16 12/28/19 23 12/27/2022 urina lysis , dipst ick pH (reference range: 5-7) 6.5 Not Available [address], [address], 12/27/2022 14:41:16 12/28/19 23 12/27/2022 urina lysis , dipst ick Blood (reference range: negative Barney/ l) Negati ve Not Available [address], [address], 12/27/2022 14:41:16 12/28/19 23 12/27/2022 urina lysis , dipst ick Specific [place] (reference range: 1.005-1.030) 1.025 Not Available [address], [address], 12/27/2022 14:41:16 12/28/19 23 12/27/2022 urina lysis , dipst ick Ketone (reference range: negative mg/dl) Negati ve Not Available [address], [address], 12/27/2022 14:41:16 12/28/19 23 12/27/2022 urina lysis , dipst ick Bilirubin (reference range: negative mg/dl) Trace Not Available [address], [address], 12/27/2022 14:41:16 12/28/19 23 12/27/2022 urina lysis , dipst ick Glucose (reference range: negative mg/dl) Negati ve Not Available [address], [address], 12/27/2022 14:41:16 12/28/19 23 12/27/2022 urina lysis , dipst ick Appearance Clear Not Available [address] [place], [address], 12/27/2022 14:41:16 12/28/19 23 12/27/2022 urina lysis , dipst ick Color Yellow Not Available [facility] [address] [facility], [place], [address], 12/27/2022 14:41:16 11/04/19 23 11/03/2022 MAMMO , scree clint, bilat eral No observ ation record ed. [address] [facility] [address], [place], [address], 11/03/2022 15:41:58 11/05/19 23 11/03/2022 DEXA No observ ation record ed. [address] [facility] [address], [place], [address], 11/04/2022 16:27:24 11/10/19 23 12/22/2017 polys omnog alex, titra tion study No observ ation record ed. BARCODE Not Available 2022 18:30:10 11/10/19 23 07/06/2017 polys omnog alex, titra tion study No observ ation record ed. BARCODE Not Available 2022 18:30:10 11/10/19 23 05/12/2017 polys omnog alxe, diagn ostic , 6 yrs or older No observ ation record ed. Not Available 2023 15:40:36 03/08/20 23 03/08/2023 US, doppl er echoc ardio gram No observ ation record ed. [email or web address] [facility] [address], [place], [address], 03/09/2023 07:16:08 09/26/19 24 05/12/2017 polys omnog alex, diagn ostic , 6 yrs or older No observ ation record ed. BARCODE Not Available 2023 10:47:56 05/14/07/06/2017 polys omnog alex, titra tion study No [...] Organization Details Recorded Time Neoplasm of skin 812807393 Active Not Available [facility] 3 16:40:46 Herpes labialis 8053216 Active 2022 Not Available [facility] 3 16:40:46 Constipat ion 37920760 Completed Not Available [facility] 3 04:55:35 Acute sinusitis 11898337 Completed Not Available [facility] 3 04:55:35 Spinal stenosis of lumbar region 15955694 Active Not Available [facility] 3 16:40:46 Postopera tive pain 049269155 Completed Not Available [facility] 3 04:55:35 Soft tissue lesion of foot region 379771825 Completed Not Available [facility] 3 04:55:35 Dropped beats - heart 576038390 Completed Not Available [facility] 3 04:55:35 Urinary symptoms 380495492 Completed Not Available [facility] 3 04:55:35 Nodule on toe 646321131 Completed Not Available [facility] 3 04:55:36 Weight decreased 503249836 Completed Not Available [facility] 3 04:55:36 Edema 745325778 Completed Not Available [facility] 3 04:55:36 Vaginal discharge 639836886 Completed Not Available [facility] 3 04:55:36 Low back pain 104376096 Completed Not Available [facility] 3 04:55:36 Pain in left lower limb 675069025 Completed Not Available [facility] 3 04:55:36 Ganglion of foot 500922473 Completed Not Available [facility] 3 04:55:36 Numbness of toe 274234432 Completed Not Available [facility] 3 04:55:37 Non-aller gic rhinitis 78323921936 1 Completed Not Available [facility] 3 04:55:37 Laceratio n - injury 333497579 Completed Not Available [facility] 3 04:55:37 Vitamin D deficienc y 19708329 Active 2022 Not Available [facility] 3 16:40:46 Seasonal allergic rhinitis 173873167 Active 2022 Not Available [facility] 3 16:40:46 Sinusitis 12562320 Completed Not Available [facility] 3 04:55:37 Hypertens nita disorder 72034691 Completed Not Available [facility] 3 04:55:37 Body mass index 40+ - severely obese 698300451 Active 2017 Not Available [facility] 3 16:40:46 Obesity 444374011 Active Not Available [facility] 3 16:40:46 Easy bruising 513484216 Completed Not Available [facility] 3 04:55:38 Numbness 76867136 Completed Not Available [facility] 3 04:55:38 Cardiac pacemaker in situ 974126283 Active 2018 Not Available [facility] 3 16:40:46 Seasonal allergy 471494533 Completed Not Available [facility] 3 04:55:38 Erythema of skin 584035455 Completed Not Available [facility] 3 04:55:39 Ganglion cyst 108230852 Active Not Available [facility] 3 16:40:46 Anxiety 38263905 Active 2022 Not Available [facility] 3 16:40:46 Upper respirato ry infection 83057253 Completed Navjot Myles MD [address] [facility], [facility] [address], [place], [address] , [facility] [employer] [facility] 4 15:50:31 Hyperlipi demia 04128831 Active 2022 Not Available [employer] 3 16:40:46 Essential hypertens ion 91634916 Active Not Available [facility] 3 16:40:46 Allergic rhinitis 41485628 Completed Navjot Myles MD [address], [place], [address] , [place] [facility] [employer] [facility] 4 15:49:59 Acid reflux 215068358 Active Not Available [facility] 3 16:40:46 Candidias is of vagina 42713795 Completed Not Available [facility] 3 04:55:41 Degenerat ion of intervert ebral disc 91181232 Active Not Available [facility] 3 16:40:46 Obstructi ve sleep apnea syndrome 29201256 Active 2017 Not Available [facility] 3 16:40:46 Contusion of lower limb 99432071 Completed Not Available [facility] 3 04:55:42 Uterine leiomyoma 74976928 Active 2020 Not Available [facility] 3 16:40:46 Skin nodule 84184448 Completed Not Available [facility] 3 04:55:43 Osteopeni a 657030801 Active 2022 Not Available [facility] 3 16:40:46 Periodic limb movement disorder 813221932 Active 2023 Navjot Myles MD [address], [address], [place], [address] , [place] [email or web address] [facility] 4 12:05:56 Iron deficienc y 90584413 Active 2023 Navjot Myles MD [address], [address], [place], [address] , [place] [facility] [employer] [facility] 4 09:42:49 Vitamin E deficienc y 05697539 Active 2023 Navjot Myles MD [address], [address], [place], [address] , [place] [email or web address] 4 09:42:59 Notes:Medical History: Anxie ty Allergic conjunctivitis Allergic rhinitis with postnasal drip HSV-1 infection Bruxism Obesity with mod OSAHS, AHI = 16, 05/12/17, on CPAP c/o IVRC Atrial fibrillation Mild TR PASP 28 mmHg Hypertension EF 60% Hyperlipidemia FRANCHESKA Uterine leiomyoma PLMD Iron deficiency Vit E deficiency Vit D deficiency Osteopenia Lumbar stenosis Right shoulder OA Procedure History: Lap banding 2007 Nasal septoplasty 2009 Nasal polypectomy 2012 Cardiac catheterizations 2011, 2017 Cholecystectomy 2015 Left ankle fracture surgery 2015 Colonoscopy 2016 D&C 2017 Lap banding removal 2018 Pacemaker placement 2019 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 Procedures Surgical History Date Name Laterality Status Provider Name and Address Organization Details Recorded Time 3 Most Recent Bone Density completed Carine Mcleod NP [address] [place] [address] [address], [place], [address], [place] [email or web address] 11/04/2022 13:52:55 6 Date of Last Colonoscopy completed Carine Santoyo RN [facility] [employer] 08/26/2022 11:17:52 Imaging Results Imaging Date Name Status LastModified by Organization Details LastModified Time 11/03/2022 MAMMO, screening, bilateral completed [address], [address], 11/03/2022 15:41:58 11/03/2022 DEXA completed [address], [address], 11/04/2022 16:27:24 12/22/2017 polysomnogram, titration study completed BARCODE Information not available 11/09/2022 18:30:10 07/06/2017 polysomnogram, titration study completed BARCODE Information not available 11/09/2022 18:30:10 05/12/2017 polysomnogram, diagnostic, 6 yrs or older completed Information not available 09/24/2023 15:40:36 03/08/2023 US, doppler echocardiogram completed [email or web address] [facility] [address], [place], [address], 03/09/2023 07:16:08 05/12/2017 polysomnogram, diagnostic, 4 yrs [...] Name and Address Organization Details Recorded Time 65925 rosuvasta tin medicatio n hives Not available Not available 10/03/2023 72702 2 RxNorm RashQUENTIN Mijares [place] [facility] [employer] 4 11:02:48 9133 acetamino phen / hydrocodo ne medicatio n hives severe Not available 07/13/2022 58638 2 RxNorm Not Available [facility] 3 05:07:51 9136 Substance with sulfonami de structure and antibacte rial mechanism of action (substanc e) medicatio n hives Not available Not available 07/13/2022 51443 8003 SNOMED Not Available [facility] 3 05:07:51 9137 prednison e medicatio n chest pain moderate Not available 07/13/20222016 8640 RxNorm Not Available [facility] 3 05:07:51 9139 Product containin g penicilli n (product) medicatio n Not available Not available Not available 07/13/2022 39809 8001 SNOMED Not Available [facility] 3 05:07:51 9143 nitrofura ntoin medicatio n other Not available Not available 07/13/2022 7454 RxNorm chest tighn ess and press ure, stoma ch felt bad, heada olvin Not Available [facility] 3 05:07:51 9146 Levaquin medicatio n hives Not available Not available 07/13/2022 06200 2 RxNorm Not Available [facility] 3 05:07:51 9147 iodine medicatio n Not available Not available Not available 07/13/2022 5933 RxNorm Not Available [facility] 3 05:07:51 9150 Iodinated contrast media (substanc e) medicatio n hives Not available Not available 07/13/2022 00580 2004 SNOMED Not Available [facility] 3 05:07:51 9153 cyclobenz aprine hydrochlo ride medicatio n hives Not available Not available 07/13/2022 02331 RxNorm Not Available [facility] 3 05:07:51 9155 Eliquis medicatio n rash Not available Not available 07/13/2022 15393 36 RxNorm Not Available [facility] 3 05:07:51 9156 diclofena c Not available rash Not available Not available 07/13/2022 3355 RxNorm facia l rash Not Available [facility] 3 05:07:52 9158 Betadine medicatio n Not available Not available Not available 07/13/2022 02350 0 RxNorm Not Available [facility] 3 05:07:52 9160 Avelox medicatio n arthralgi a (joint pain) Not available Not available 07/13/2022 41299 6 RxNorm Not Available [facility] 3 05:07:52 9161 amoxicill in medicatio n hives Not available Not available 07/13/2022 723 RxNorm Not Available [facility] 3 05:07:52 9163 lisinopri l medicatio n Not available Not available Not available 07/13/2022 84637 RxNorm Not Available [facility] 3 05:07:52 9165 azithromy yaquelin medicatio n hives Not available Not available 07/13/2022 25057 RxNorm I SPOKE WITH THE PT , ON NUMER OUS OCCAS IONS SHE HAS BEEN GIVEN Z-PAC WITHO UT ANY ADVER SE REACT ION. SHE OK'D THIS MEDIC ATION TO BE TAKEN OFF HER ALLER GY LIST. Not Available [facility] 3 05:07:52 Medications Name Sig Start Date [...] lone acetonide 55 mcg nasal spray aerosol [place] 2 sprays every day by nasal route [...] Not Available Not Available Not Available Fluvirin 9613-7966 45 mcg (15 mcg x 3)/0.5 mL [...] Updated DateTime 3 167.64 cm 57.1 kg/m2 429933. 7 g 71 /min 98 % 98 % 120 mm[Hg] 64 mm[Hg] Liza MCKENZIE - [employer] 3 12:23:39 Date Recorded Body height Body mass index (BMI) Body weight Body temperature Heart rate Respiratory rate Oxygen saturation Oxygen saturation in Arterial blood by Pulse oximetry Pain severity - 0-10 verbal numeric rating [Score] - Reported Systolic blood pressure Diastolic blood pressure Provider Name and Address Organization Details Last Updated DateTime 3 167.64 cm 58.3 kg/m2 005678. 85 g 97.1 [degF] 109 /min 24 /min 99 % 99 % 1 160 mm[Hg] 100 mm[Hg] Carine Santoyo RN [facility] [employer] [facility] 3 14:27:45 Date Recorded Body height Body mass index (BMI) Body weight Body temperature Heart rate Oxygen saturation Oxygen saturation in Arterial blood by Pulse oximetry Systolic blood pressure Diastolic blood pressure Provider Name and Address Organization Details Last Updated DateTime 3 167.64 cm 49.1 kg/m2 388633. 08 g 97.2 [degF] 71 /min 99 % 99 % 122 mm[Hg] 80 mm[Hg] Liza Montero [facility] [employer] 3 12:19:47 Date Recorded Body height Body mass index (BMI) Body weight Body temperature Heart rate Oxygen saturation Oxygen saturation in Arterial blood by Pulse oximetry Systolic blood pressure Diastolic blood pressure Provider Name and Address Organization Details Last Updated DateTime 4 167.64 cm 57.8 kg/m2 579392. 07 g 98.2 [degF] 75 /min 97 % 97 % 122 mm[Hg] 82 mm[Hg] Efra Gill CMA [place] [employer] [facility] [employer] 4 11:00:38 Date Recorded Heart rate Respiratory rate Provider N lance and Address Organization Details Last Updated DateTime 10/03/2023 75 /min 15 /min Navjot Myles MD [address] [place] [address], [address], [facility] [employer] [facility] 10/03/2023 12:17:14 Date Recorded Body height Body mass index (BMI) Body weight Body temperature Heart rate Oxygen saturation Oxygen saturation in Arterial blood by Pulse oximetry Systolic blood pressure Diastolic blood pressure Provider Name and Address Organization Details Last Updated DateTime 4 167.64 cm 57.6 kg/m2 150578. 48 g 97.6 [degF] 74 /min 98 % 98 % 120 mm[Hg] 72 mm[Hg] Efra Gill CMA [place] [employer] [facility] [employer] 09:18:55 Date Recorded Heart rate Respiratory rate Provider Heidi lucas and Address Organization Details Last Updated DateTime 10/24/2023 74 /min 15 /min Navjot Myles MD [address], [facility] [address], [place], [address], [place] [facility] [employer] 10/24/2023 09:44:23 Social History Question Answer Notes LastModified by Organization Details LastModified Time Tobacco Smoking Status Former Smoker Not Available [facility] 07/13/2022 04:43:20 Do You Have An Advance Directive? No [email or web address].030 [id number] Information not available 07/13/2022 What Is Your Level Of Alcohol Consumption? None MIGRATION.030 [id number] Information not available 07/13/2022 Do You Wear A Helmet When Biking? No Pt Doesn't Bike MIGRATION.030 [id number] Information not available 07/13/2022 Are You Blind Or Do You Have Difficulty Seeing? No Patient Has Cataracts In Both Eyes And Pt Wears Eyeglasses MIGRATION.030 [id number] Information not available 07/13/2022 Is Blood Transfusion Acceptable In An Emergency? Yes [email or web address] Information not available 08/26/2022 What Is Your Level Of Caffeine Consumption? Occasional MIGRATION.030 [id number] Information not available 07/13/2022 In The 14 Days Before Symptom Onset, Have You Had Close Contact With A Laboratory-conf irmed COVID-19 While That Case Was Ill? No MIGRATION.030 [id number] Information not available 07/13/2022 In The 14 Days Before Symptom Onset, Have You Had Close Contact With A Person Who Is Under Investigation For COVID-19 While That Person Was Ill? No MIGRATION.030 [id number] Information not available 07/13/2022 Are You Deaf Or Do You Have Serious Difficulty Hearing? No MIGRATION.030 [id number] Information not available 07/13/2022 What Type Of Diet Are You Following? REGULAR MIGRATION.030 [id number] Information not available 07/13/2022 Which Illicit Or Recreational Drugs Have You Used? None MIGRATION.030 [id number] Information not available 07/13/2022 What Is The Highest Grade Or Level Of School You Have Completed Or The Highest Degree You Have Received? [id number] MIGRATION.030 [id number] Information not available 07/13/2022 Have There Been Any Changes To Your Family Or Social Situation? No MIGRATION.0301 [id number] Information not available 07/13/2022 When Did You Quit Smoking? 16+yearssincelastc igarette 40 Years Ago MIGRATION.0301 [id number] Information not available 07/13/2022 Are There Any Guns Present In Your Home? No MIGRATION.0301 [id number] Information not available 07/13/2022 Do You Use Insect Repellent Routinely? No MIGRATION.0301 [id number] Information not available 07/13/2022 Where Do You Live? SingleLevelHouse MIGRATION.0301 [id number] Information not available 07/13/2022 Do You Have A Medical Power Of Corporate Planner? No MIGRATION.0301 [id number] Information not available 07/13/2022 Do You Have Any Pets? 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 Single MIGRATION.0301 [id number] Information not available 07/13/2022 Do You Use Your Seat Belt Or Car Seat Routinely? Yes MIGRATION.0301 [id number] Information not available 07/13/2022 Do You Have Smoke And Carbon Monoxide Detectors In Your Home? Yes MIGRATION.0301 [id number] Information not available 07/13/2022 At What Age Did You Start Smoking Tobacco? 28 MIGRATION.0301 [id number] Information not available 07/13/2022 Are You Passively Exposed To Smoke? No MIGRATION.0301 [id number] Information not available 07/13/2022 Are There Any Smokers In Your House? No MIGRATION.0301 [id number] Information not available 07/13/2022 Do You Participate In Social Media? Yes MIGRATION.0301 [id number] Information not available 07/13/2022 Do You Feel Stressed (tense, Restless, Nervous, Or Anxious, Or Unable To Sleep At Night)? [id number] MIGRATION.0301 [id number] Information not available 07/13/2022 Do You Use Any Illicit Or Recreational Drugs? No MIGRATION.0301 [id number] Information not available 07/13/2022 Do You Use Sunscreen Routinely? No MIGRATION.0301 [id number] Information not available 07/13/2022 Has Tobacco Cessation Counseling Been Provided? No MIGRATION.0301 [id number] Information not available 07/13/2022 Have You Recently Traveled Abroad? No MIGRATION.0301 [id number] Information not available 07/13/2022 Are You Currently In School? No MIGRATION.0301 [id number] Information not available 07/13/2022 Do You Have Any Dietary Restrictions? No No Sugar, Fish Every Other Day MIGRATION.0301 [id number] Information not available 07/13/2022 Do You Or Have You Ever Used Any Other Forms Of Tobacco Or Nicotine? No [id number] Information not available 07/13/2022 Sex: Female Functional Status Question Answer Note LastModified by Organizat ion Details LastModified Time Do you have difficulty walking or climbing stairs? Yes degenerative disks in back make it difficult for her to walk and her weight also MIGRATION.[id number] Information not available 07/13/2022 Do you have transportation difficulties? No MIGRATION.29367 [id number] Information not available 07/13/2022 Are you able to walk? YESWOREST MIGRATION.77061 [id number] Information not available 07/13/2022 Do you have difficulty doing errands alone? No MIGRATION.97937 [id number] Information not available 07/13/2022 Are you able to care for yourself? Yes MIGRATION.89671 [id number] Information not available 07/13/2022 Do you have difficulty dressing or bathing? No MIGRATION.91093 [id number] Information not available 07/13/2022 What is your exercise level? None MIGRATION.29354 [id number] Information not available 07/13/2022 Mental Status Question Answer Note LastModified by Organizat ion Details LastModified Time Do you have difficulty concentrating, remembering or making decisions? No [id number] Information not available 07/13/2022 Family History Relationship Description Onset Age of this Age Resolved Age Notes LastModified by Organization Details LastModified Time Mother Myocardial infarction [id number] [id number] Not available 07/13/2022 04:44:24 Mother Heart disease MIGRATION.691 [id number] Not available 07/13/2022 04:44:24 Mother Cerebrovascu lar accident MIGRATION.139 [id number] Not available 07/13/2022 04:44:24 Mother Alzheimer's disease MIGRATION.139 [id number] Not available 07/13/2022 04:44:24 Maternal Grandmother Diabetes mellitus MIGRATION.675 [id number] Not available 07/13/2022 04:44:24 Sister Heart disease Not available 2023 12:01:25 Sister Diabetes mellitus Not available 2023 12:01:31 Sister Malignant neoplasm of skin Not available 2023 12:01:50 Sister Immune defect Not available 2023 12:02:18 Medical History Condition Response ARTHRITIS Y ALLERGIES/HAYFEVER Y HIGH CHOLESTEROL / HYPERLIPIDEMIA Y CATARACTS Y HEADACHES/MIGRAINES Y HYPERTENSION Y CARDIAC ARRHYTHMIA Y ANXIETY DISORDER Y OBESITY Y GERD/NAUSEA Y Gynecological History Statement/Question Response If Post Menopausal, Age at Menopause 49 Date of Last Mammogram 11/03/2022 Date of Last Colonoscopy 05/11/2016 Most Recent Mammogram Most Recent Bone Density 11/03/2022 Obstetrics History GPAL:G 0 P 0 0 0 0 Immunizations Vaccine Type Date Status Note Provider Nam e and Address Organization Details Recorded Time Influenza, split virus, quadrivalent, preservative 9 completed Not Available [facility] 07/13/2022 05:07:40 COVID-19, mRNA, LNP-S, PF, 100 mcg/0.5mL dose or 50 mcg/0.25mL dose 1 completed Not Available [facility] 07/13/2022 05:07:40 COVID-19, mRNA, LNP-S, PF, 100 mcg/0.5mL dose or 50 mcg/0.25mL dose 1 completed Not Available [facility] 07/13/2022 05:07:40 COVID-19, mRNA, LNP-S, PF, 100 mcg/0.5mL dose or 50 mcg/0.25mL dose 1 completed Not Available [facility] 07/13/2022 05:07:40 Influenza, split virus, quadrivalent, preservative 0 completed Not Available [facility] 07/13/2022 05:07:40 Influenza, split virus, quadrivalent, preservative 9 completed Not Available [facility] 07/13/2022 05:07:40 Influenza, split virus, trivalent, preservative 6 completed Not Available [facility] 07/13/2022 05:07:41 Tdap 05/08/201 5 completed Not Available [facility] 07/13/2022 05:07:41 Tdap 2 completed Not Available [facility] 07/13/2022 05:07:41 Pneumococcal conjugate PCV 13 1 completed Not Available [facility] 07/13/2022 05:07:41 Influenza, split virus, quadrivalent, PF 8 completed Not Available [facility] 07/13/2022 05:07:41 Influenza, split virus, quadrivalent, preservative 5 completed Not Available [facility] 07/13/2022 05:07:41 Influenza, split virus, trivalent, preservative 4 completed Not Available [facility] 07/13/2022 05:07:41 Influenza, split virus, quadrivalent, PF 7 completed Not Available [facility] 07/13/2022 05:07:41 Influenza, split virus, trivalent, preservative 3 completed Not Available [facility] 07/13/2022 05:07:41 Past Encounters Encounter ID Performer Location Encounter Start Date Encounter Closed Date Diagnosis/Indication Diagnosis SNOMED-CT Code Diagnosis ICD10 Code Diagnosis Note [id number] [facility] [place] [address] 09/08/2020 00:00:00 09/08/2020 10:57:40 [id number] [facility] [place] [address] [place] [address] 02/01/2021 00:00:00 02/01/2021 20:54:29 [id number] [facility] [place] [address] 01/13/2022 00:00:00 01/13/2022 10:54:35 [id number] [facility] [place] [address] [place] [address] 04/05/2022 00:00:00 04/05/2022 14:41:[id number] [address] 06/22/2022 00:00:00 06/22/2022 08:51:05 [id number] Carine Mcleod NP [address] [address] 07/20/2022 14:48:56 07/20/2022 16:05:07 Upper respiratory infection 46211267 J06.9 1. Drink plenty of water.2. May use OTC cold medication for symptoms. Allergic conjunctivitis of bilateral eyes 4017672803 28834 H10.13 Stop eye cream. Try on benadryl at night for 7-10 days. [id number] Carine Mcleod NP [address] [address] 08/26/2022 11:05:17 08/26/2022 12:09:14 Allergic rhinitis 88306857 J30.9 Medrol dose daniela. If not helpful, may need kenalog injection [id number] Corrine Eddy, [facility] Pulmonolo gy [place] [address] [place] [address] 11/08/2022 11:50:58 11/08/2022 14:58:11 Obstructive sleep apnea syndrome 29240811 G47.33 I can not access original study today, [facility] set up 07/2017Dow nload for 90 days with 99% use greater than 4 hours.She is on PAP [id number] AHI is 1.1She has god use and [...] up for compliance within 90 days Fatigue 57884778 R53.83 May need adjustment in settings. Restless sleep 14443054 G47.9 May need adjustment in settings. [id number] Carine Mcleod NP S_[address] [address] 12/27/2022 14:11:36 12/27/2022 15:35:58 Obesity 548620833 E66.9 Diet and exercise discussed. Obstructiv e sleep apnea syndrome 42980189 G47.33 Corrine Eddy NP [facility] Hyperlipidemia 85003732 E78.5 ezetimibe 10 mg po daily.Dr. Alvarado Essential hypertension 49092412 I10 ASA 81 mg po daily.Furo semide 20 mg po daily.Mignon nopril 20 mg po daily.Nebi volol 5 mg po dailyDr. Jenny Lumbar radiculopathy 128 966447 M54.16 Pain management . Spinal eder nosis of lumbar region 95367696 M48.061 Pain management . Vitamin D deficiency 347 87603 E55.9 vit d supplement Seasonal a llergic rhinitis 039490552 J30.2 montelukas t 10 mg po daily. Acid reflux 107096959 K2 1.9 Omeprazole 20 mg po daily. Anxiety 59810529 F41.9 escitalopr am 10 mg po daily. Osteopenia 174234311 M85 .80 11/03/22 osteopenia .Taking a bone health supplement . Vaginal odor 249238673 N 89.8 Doxy [id number] Corrine Eddy, GI TECH-BC [facility] Pulmonolo gy [place] [address] [place] [address] 03/06/2023 12:07:09 03/06/2023 12:50:05 Obstructive sleep apnea syndrome 53773735 G47.33 I can not access original study today, staff to requestNew machine 3Dow nload for 30 days with 93% use greater than 4 hours.She is on PAP [id number] AHI is 1.7She has good use and [...] should follow up in 6 months Fatigue 15825384 R53.83 May need adjustment in settings. 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 D50.8 E83.42 [id number] Navjot Myles MD [facility] [address] 10/24/2023 09:04:57 10/25/2023 09:04:57 Obstructive sleep apnea syndrome 84511826 G47.33 Iron deficiency 39114496 E61.1 Vitamin E deficiency 541 19192 E56.0 Health Concerns Section Related Observation LastModified by Organization Detai ls LastModified Time None Recorded Concern Status LastModified by Organization Details LastModified Time None Recorded Advance Directives Directive N: Payers Encounter Date Sequence Insurance Name Policy Number Policy Rhodes Covered Member ID Rhodes Member ID Guarantor Name 11/08/2022 1 [place] Malene R Kaiser [id number] Malene R Kaiser 11/08/2022 2 [place] ([place] 104 Malene R Kaiser [id number] Malene R Kaiser 12/27/2022 1 [place] Malene R Kaiser [id number] Malene R Kaiser 12/27/2022 2 [place] 104 Malene R Kaiser [id number] Malene R Kaiser 03/06/2023 1 [place] Malene R Kaiser [id number] Malene R Kaiser 03/06/2023 2 [place] 104 Malene R Kaiser [id number] Malene R Kaiser 10/03/2023 1 [place] Malene R Kaiser [id number] Malene R Kaiser 10/03/2023 2 [place] 104 Malene R Kaiser [id number] Malene R Kaiser 10/24/2023 1 [place] Malene R Kaiser [id number] Malene R Kaiser 10/24/2023 2 [place] 104 Malene R Kaiser [id number] Malene R Kaiser Notes Date Note Type Note Provider Name [...] PCM notes and imagingReviewed medications and allergies MILENA Tracy- [address], [place], [address], Kera 11/08/2022 16:41:50 3 text/html Here for 6 [...] Stable.Lipid- on zetia.Seeing Jenny cardiology. 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 Ennis GI last colonoscopy 06/11/2015.Massage therapy and osteoarthritis [facility] dermatology. Christiano retired.Vision exam- cataracts bilaterally, 2022. Left is worse and progressing faster.Dental- every 6 mo. Carine Mcleod NP [address] [facility] [address], [place], [address], [employer] 12/27/2022 15:05:46 3 text/html Ms Kaiser presents today to follow up on JOSE FRANCISCO and PAPShe has been sleeping better but continues to have some fatigueTells me that her nasal pillows fit well, she does not wake due to mask leak or discomfort.She endorses some fatigue during the day.Denies xerostomia and aerophagia MILENA Tracy- [address], [place], [address], [employer] 03/06/2023 16:54:18 4 text/html Primary care/Referring provider: Terrence Cohn NP During the [facility] diagnostic sleep study on 05/12/17, sleep onset = 37.5 minutes, REM onset = 306 minutes, AHI = 16, supine AHI = 27, REM AHI = 79, PLMI = 10. During the [facility] titration sleep study on 07/06/17, sleep onset = 67.5 minutes, REM onset = 138 minutes, ResMed medium AirFit P10 nasal pillows @ 8 cmH2O, PLMI = 0.0. During the [facility] titration sleep study on 12/22/17, sleep onset = 23.5 minutes, REM onset = 297 minutes, Respironics medium Nuance gel nasal pillows @ 10 cmH2O, PLMI = 0.0.During the [facility] titration sleep study on 11/14/18, sleep onset [...] up without an alarm. Snoring: heavy, since .Snorting: noChoking: noCoughing: noGasping: noGagging: noSighing: noWitnessed apnea: [...] slight chance of dozing. Navjot Myles MD [address] [place] [address], [address], [facility] [employer] 10/03/2023 12:17:46 4 text/html Primary care/Referring provider: Terrence Cohn NP During the [facility] diagnostic sleep study on 05/12/17, sleep onset = 37.5 minutes, REM onset = 306 minutes, AHI = 16, supine AHI = 27, REM AHI = 79, PLMI = 10. During the [facility] titration sleep study on 07/06/17, sleep onset = 67.5 minutes, REM onset = 138 minutes, ResMed medium AirFit P10 nasal pillows @ 8 cmH2O, PLMI = 0.0. During the [facility] titration sleep study on 12/22/17, sleep onset = 23.5 minutes, REM onset = 297 minutes, Respironics medium Nuance gel nasal pillows @ 10 cmH2O, PLMI = 0.0.During the [facility] titration sleep study on 11/14/18, sleep onset [...] chance of dozing. Navjot Myles MD [address] [facility], [address], [address], [facility] [employer] [facility] [employer] 10/24/2023 09:59:05 OBGyn Episode No OBEpisode recorded.
--- OUTSIDE RECORDS SUMMARY | 2024-09-04 08:51 | XMS_ITS | Clinical Summary ---
Author Organization [facility] Address [address] [place] [address] Care Team Providers Care Roundsman Name Role Phone Mireya Cohn NP Primary Care Provider [phone] Allergies Active Allergy Reactions Criticality Noted Date Comments Moxifloxacin Rash Low 06/04/2024 Povidone Iodine Rash Low 06/04/2024 Iodine Rash Low 06/04/2024 Cyclobenzaprine Rash Low 06/04/2024 Hydrocodone Rash Low 06/04/2024 Levofloxacin Rash Low 06/04/2024 Penicillin G Rash Low 06/04/2024 Sulfa Antibiotics Rash Low 06/04/2024 Tape Rash Low 06/10/2024 Medications aspirin 81 MG chewable tablet Chew [...] into the skin once a week. Active Encounters Date Type Department Care Team Description 07/08/2024 9:08 AM SACK DEPARTMENT SUPERVISOR - 07/08/2024 9:47 AM SACK DEPARTMENT SUPERVISOR Surgery [facility] [address] [place] [address] Sharif Mcarthur MD CATARACT REMOVAL WITH IOL IMPLANT 07/08/2024 9:03 AM SACK DEPARTMENT SUPERVISOR Anesthesia Event [facility] [address] [place] [address] Monique Kessler CRNA Bell, Lisa M, CRNA 07/08/2024 7:39 AM SACK DEPARTMENT SUPERVISOR - 07/08/2024 9:46 AM SACK DEPARTMENT SUPERVISOR Hospital Encounter [facility] [address] [place] [address] Sharif Mcarthur MD Discharge Disposition: Home or Self Care (Routine Discharge) 07/08/2024 Travel 06/10/2024 10:31 AM SACK DEPARTMENT SUPERVISOR Anesthesia Event [facility] [address] [place] [address] Laamr Munoz CRNA Hitt, Tracy A, CRNA 06/10/2024 10:14 AM SACK DEPARTMENT SUPERVISOR - 06/10/2024 10:55 AM SACK DEPARTMENT SUPERVISOR Surgery [facility] [address] [place] [address] Sharif Mcarthur MD CATARACT REMOVAL WITH IOL IMPLANT 06/10/2024 9:04 AM SACK DEPARTMENT SUPERVISOR - 06/10/2024 11:17 AM SACK DEPARTMENT SUPERVISOR Hospital Encounter [facility] [address] [place] [address] Sharif Mcarthur MD Discharge Disposition: Home or Self Care (Routine Discharge) 06/10/2024 Travel from Last 3 Months Social History Tobacco Use Types Packs/Day Years Used Date Smoking Tobacco: Former Cigarettes 1974 Smokeless Tobacco: Never Tobacco Cessation:Counseling Given: Not Answered Alcohol Use Standard Drinks/Week Comments Never 0 (1 standard drink = 0.6 oz pur e alcohol) Comments No Sex and Gender Information Value Date Recorded Sex Assigned at Not on file Legal Sex Female 10:34 AM SACK DEPARTMENT SUPERVISOR Gender Identity Not on file Sexual Orientation Not on file Last Filed Vital Signs Vital Sign Reading Time Taken Comments Blood Pressure 185/113 07/08/2024 9:37 AM SACK DEPARTMENT SUPERVISOR Pulse 69 07/08/2024 9:37 AM SACK DEPARTMENT SUPERVISOR Temperature 36.3 C (97.3 F) 07/08/2024 8:08 AM SACK DEPARTMENT SUPERVISOR Respiratory Rate 18 07/08/2024 8:08 AM SACK DEPARTMENT SUPERVISOR Oxygen Saturation 97% 07/08/2024 8:08 AM SACK DEPARTMENT SUPERVISOR Inhaled Oxygen Concentration - - Weight 158.8 kg (350 lb) 06/27/2024 9:59 AM SACK DEPARTMENT SUPERVISOR Height 167.6 cm (5' 6) 06/10/2024 9:30 AM SACK DEPARTMENT SUPERVISOR Body Mass Index 56.49 06/10/2024 9:30 AM SACK DEPARTMENT SUPERVISOR Plan of Treatment Health Maintenance Due Date Last Done Comments Colorectal Cancer Screening Colonoscopy (10 Years) 1953 Hepatitis C 12/13/1971 Mammogram Screening 1993 Zoster Vaccines (1 of 2) 12/13/2003 RSV Immunization or 60+ Years (1 - Risk 60-74 years 1-dose series) 2013 Annual Medicare Wellness Visit 2018 Dexa Scan (General) 2018 COVID-19 Vaccine ( season) 2024 05/04/2021, 07/21/2020, 07/01/2020, Additional history exists DTaP, Tdap and Td Vaccines (3 - Td or Tdap) 09/19/2024 09/19/2014, 03/27/2012 Pneumococcal Vaccine: 50+ Years Completed 02/01/2021, 01/27/2020 Meningococcal B Vaccine Aged Out No l onger eligible based on patient's age to complete this topic Meningococcal Vaccine Aged Out No artemio jayjay eligible based on patient's age to complete this topic RSV Immunizations Under 20 Months Aged Out No longer eligible based on patient's age to complete this topic Medical Devices Implanted Type Area Locks Tender Device Identifier Shelf Expiration Date Model / Serial / Lot Tecnis 1 Piece Iol With Tecnis Simplicity Delivery System Implanted:Qty: 1 on 07/08/2024 by Sharif Mcarthur MD at [facility] Lens [employer] 04/19/2025 / [id number] / Tecnis 1-Piece Iol With Tecnis Simplicity Delivery System Implanted:Qty: 1 on 06/10/2024 by Sharif Mcarthur MD at [facility] Left: Eye [employer] 04/12/2025 [id number] / [id number] / Procedures Procedure Name Priority Date/Time Associated Diagnosis Comments REMV CATARACT EXTRACAP,INSERT LENS 07/08/2024 9:03 AM SACK DEPARTMENT SUPERVISOR H25.11 Special Needs Needs Eye StretcherC REMV CATARACT EXTRACAP,INSERT LENS 06/10/2024 10:31 AM SACK DEPARTMENT SUPERVISOR H25.12 Special Needs Needs Eye Stretcher from Last 3 Months Insurance MEDICARE [facility] Care Teams Roundsman Relationship Specialty Start Date End Date Mireya Cohn NP [address] [place] [address] PCP - General NURSE PRACTITIONER 06/03/24
== END 2024-09-04 08:25 | disposition home or self-care (01) ==
PROVIDERS: PCP Nurse Practitioner Adult Health; Visit Provider Orthopaedic Surgery
DX: M19.011 Primary osteoarthritis, right shoulder (principal)
CPT/HCPCS: 73030

== ENCOUNTER 2025-04-22 10:38 | Outpatient (CLI) | payer MEDICARE, BC, SELFPAY ==
[2025-04-22 19:42] LABS: Add Urine Microscopic? YES
[2025-04-22 19:44] LABS: Appearance Urine Turbid (Clear); Glucose Urine UA Negative (Negative); Nitrate Urine Negative (Negative); Specific Grav Ur 1.025 (1.001-1.035)
[2025-04-22 19:49] LABS: Leukocyte Esterase Ur Trace LEU/UL (Negative)
== END 2025-04-22 10:39 | disposition home or self-care (01) ==
LOC: ANHLAB 10:43 → ANHBWCLAB 10:43
PROVIDERS: PCP Nurse Practitioner Adult Health; Visit Provider Nurse Practitioner Adult Health
DX: N39.0 Urinary tract infection, site not specified (principal)
CPT/HCPCS: 81001; 87086